=== PATIENT | female | born 1960 | race American Indian/Alaskan Native ===

== ENCOUNTER 2017-04-14 21:59 | Inpatient (IN) | payer MEDICARE ==
--- NOTE | 2017-04-14 23:42 | Emergency Department Report ---
HPI - General Chief Complaint: Weakness Time Seen by Provider: 04/14/17 23:26 - HPI HPI: Room 8 The patient is a 56-year-old female presenting with a chief complaint of syncope. The patient reports multiple syncopal episodes over the past 2 weeks. The patient states she stands up and gets lightheaded and then passes out waking up on the floor. Patient states this is happened 3-4 times. Patient denies any preceding chest pain or shortness of breath. Patient admits to intermittent headache and states she currently has a headache. The patient originally admitted to falling multiple times for the past 2 weeks secondary to her chronic back pain Location: [see above] Duration: Intermittent 2 weeks Quality: Lightheadedness Severity: [see above] Modifying factors: [see above] Context: [see above] Mode of transportation: [not driving] ED Past Medical Hx - Past Medical History Hx Hypertension: Yes Hx Diabetes: Yes Hx Arthritis: Yes Additional medical history: HIGH CHOLESTEROL - Surgical History Hx Coronary Stent: Yes Additional Surgical History: L neck sgx cyst. - Family History Family history: no significant - Social History Smoking Status: Current Every Day Smoker Substance Use Type: None (denies illicit drug use), Alcohol (occasional) - Medications Home Medications: Home Medications Medication Instructions Recorded Confirmed Last Taken Type Amitriptyline [Elavil] 25 mg PO DAILY 07/26/14 07/18/16 07/25/14 History 100mg Gabapentin 100 mg PO TID 07/26/14 07/18/16 07/25/14 History 100mg Insulin Aspart Prot/Aspart(Nf) 10 units SC BID 07/26/14 07/18/16 07/25/14 History [NovoLOG Mix 70/30 VIAL] 10 units Insulin Glargine [Lantus VIAL] 10 units SC QHS 07/26/14 07/18/16 07/25/14 History 15units Aspirin [Aspirin BABY CHEW TAB] 81 mg PO QDAY #30 tab.chew 07/20/16 Unknown Rx Carvedilol [Coreg] 3.125 mg PO BID #60 tablet 07/20/16 Unknown Rx HYDROcodone/APAP 5-325 [Canjilon 2 each PO Q6HR PRN #10 tablet 07/20/16 Unknown Rx 5-325 mg TAB] Lisinopril [Zestril TAB] 2.5 mg PO DAILY #30 tablet 07/20/16 Unknown Rx Omeprazole 40 mg PO DAILY #30 capsule. 07/20/16 Unknown Rx Potassium Chloride [K-Dur] 20 meq PO QDAY #30 tablet 07/20/16 Unknown Rx Prasugrel [Effient] 10 mg PO QDAY #30 tablet 07/20/16 Unknown Rx Pravastatin Sodium [Pravastatin] 20 mg PO DAILY #30 tablet 07/20/16 Unknown Rx Tizanidine HCl [tiZANidine] 2 mg PO Q8HR #8 tablet 07/20/16 Unknown Rx oxyCODONE ER [OxyCONTIN ER TAB] 10 mg PO Q12HR #10 tablet 07/20/16 Unknown Rx ED Review of Systems ROS: Stated complaint: GENERAL WEAKNESS Other details as noted in HPI Comment: All other systems reviewed and negative Constitutional: denies: chills, fever Eyes: denies: eye pain, eye discharge, vision change ENT: denies: ear pain, throat pain Respiratory: denies: cough, shortness of breath, wheezing Cardiovascular: denies: chest pain, palpitations Endocrine: no symptoms reported Gastrointestinal: denies: abdominal pain, nausea, diarrhea Genitourinary: denies: urgency, dysuria, discharge Musculoskeletal: back pain Skin: denies: rash, lesions Neurological: headache, other (syncope) Psychiatric: denies: anxiety, depression Hematological/Lymphatic: denies: easy bleeding, easy bruising Physical Exam - Physical Exam Vital Signs: Vital Signs 04/14/17 04/14/17 22:44 22:53 Temperature 98.4 F Pulse Rate 86 Respiratory 16 16 Rate Blood Pressure 130/84 Blood Pressure 130/84 [Right] O2 Sat by Pulse 98 Oximetry Physical Exam: GENERAL: The patient is well-developed well-nourished female lying on stretcher not appearing to be in acute distress. [] HEENT: Normocephalic. Atraumatic. Extraocular motions are intact. Patient has moist mucous membranes. NECK: Supple. Trachea midline CHEST/LUNGS: Clear to auscultation. There is no respiratory distress noted. HEART/CARDIOVASCULAR: Regular. There is no tachycardia. There is no gallop rub or murmur. ABDOMEN: Abdomen is soft, nontender. Patient has normal bowel sounds. There is no abdominal distention. SKIN: There are subacute abrasions to bilateral knees from previous falls. There is no diaphoresis. NEURO: The patient is awake, alert, and oriented. The patient is cooperative. The patient has no focal neurologic deficits. The patient has normal speech. Cranial nerves II through XII grossly intact, no drift. Liquid Sugar Melter 5+/5 bilaterally MUSCULOSKELETAL: There is no limitation range of motion. ED Course Vital Signs 04/14/17 04/14/17 22:44 22:53 Temperature 98.4 F Pulse Rate 86 Respiratory 16 16 Rate Blood Pressure 130/84 Blood Pressure 130/84 [Right] O2 Sat by Pulse 98 Oximetry ED Medical Decision Making - Lab Data Result diagrams: 04/14/17 23:35 04/14/17 23:35 Laboratory Tests 04/14/17 04/14/17 04/14/17 23:35 23:35 23:35 WBC 6.8 RBC 2.61 L Hgb 8.7 L Hct 27.0 L MCV 103 H MCH 34 H MCHC 32 RDW 15.8 H Plt Count 167 Lymph % (Auto) Hose Handler Add Manual Diff Complete Total Counted 100 Seg Neutrophils % Hose Handler Seg Neuts % (Manual) 78.0 H Band Neutrophils % 1.0 Lymphocytes % (Manual) 16.0 Reactive Lymphs % (Man) 0 Monocytes % (Manual) 4.0 Eosinophils % (Manual) 1.0 Basophils % (Manual) 0 Metamyelocytes % 0 Myelocytes % 0 Promyelocytes % 0 Blast Cells % 0 Nucleated RBC % Not Reportable Seg Neutrophils # Man 5.3 Band Neutrophils # 0.1 Lymphocytes # (Manual) 1.1 L Abs React Lymphs (Man) 0.0 Monocytes # (Manual) 0.3 Eosinophils # (Manual) 0.1 Basophils # (Manual) 0.0 Metamyelocytes # 0.0 Myelocytes # 0.0 Promyelocytes # 0.0 Blast Cells # 0.0 WBC Morphology Not Reportable Hypersegmented Neuts Not Reportable Hyposegmented Neuts Not Reportable Hypogranular Neuts Not Reportable Smudge Cells Not Reportable Toxic Granulation Not Reportable Toxic Vacuolation Not Reportable Dohle Bodies Not Reportable Pelger-Huet Anomaly Not Reportable Kim Rods Not Reportable Platelet Estimate Consistent w auto Clumped Platelets Not Reportable Plt Clumps, EDTA Not Reportable Large Platelets Not Reportable Giant Platelets Not Reportable Platelet Satelliting Not Reportable Plt Morphology Comment Not Reportable RBC Morphology Not Reportable Dimorphic RBCs Not Reportable Polychromasia Not Reportable Hypochromasia Not Reportable Poikilocytosis Not Reportable Anisocytosis Not Reportable Microcytosis Not Reportable Macrocytosis Not Reportable Spherocytes Not Reportable Pappenheimer Bodies Not Reportable Sickle Cells Not Reportable Target Cells 1+ Tear Drop Cells Not Reportable Ovalocytes Not Reportable Stomatocytes Few Helmet Cells Not Reportable [place] Bodies Not Reportable [place] Rings Not Reportable Lucas Cells Not Reportable Bite Cells Not Reportable Crenated Cell Not Reportable Elliptocytes Not Reportable Acanthocytes (Spur) Not Reportable Rouleaux Not Reportable Hemoglobin C Crystals Not Reportable Schistocytes Not Reportable Malaria parasites Not Reportable Vladislav Bodies Not Reportable Hem Pathologist Commnt No PT 16.1 H INR 1.30 H APTT 37.3 H VBG pH Sodium 127 L Potassium 3.0 L Chloride 87.5 L Carbon Dioxide 20 L Anion Gap 23 BUN 6 L Creatinine 0.3 L Estimated GFR > 60 BUN/Creatinine Ratio 20.00 Glucose 187 H Calcium 6.2 L Total Bilirubin 10.70 H AST 194 H ALT 59 H Alkaline Phosphatase 413 H Total Creatine Kinase 57 CK-MB (CK-2) 1.1 CK-MB (CK-2) Rel Index 1.9 Troponin T < 0.010 Total Protein 6.2 L Albumin 2.2 L Albumin/Globulin Ratio 0.6 TSH Free T4 04/14/17 04/14/17 23:35 23:35 WBC RBC Hgb Hct MCV MCH MCHC RDW Plt Count Lymph % (Auto) Add Manual Diff Total Counted Seg Neutrophils % Seg Neuts % (Manual) Band Neutrophils % Lymphocytes % (Manual) Reactive Lymphs % (Man) Monocytes % (Manual) Eosinophils % (Manual) Basophils % (Manual) Metamyelocytes % Myelocytes % Promyelocytes % Blast Cells % Nucleated RBC % Seg Neutrophils # Man Band Neutrophils # Lymphocytes # (Manual) Abs React Lymphs (Man) Monocytes # (Manual) Eosinophils # (Manual) Basophils # (Manual) Metamyelocytes # Myelocytes # Promyelocytes # Blast Cells # WBC Morphology Hypersegmented Neuts Hyposegmented Neuts Hypogranular Neuts Smudge Cells Toxic Granulation Toxic Vacuolation Dohle Bodies Pelger-Huet Anomaly Kim Rods Platelet Estimate Clumped Platelets Plt Clumps, EDTA Large Platelets Giant Platelets Platelet Satelliting Plt Morphology Comment RBC Morphology Dimorphic RBCs Polychromasia Hypochromasia Poikilocytosis Anisocytosis Microcytosis Macrocytosis Spherocytes Pappenheimer Bodies Sickle Cells Target Cells Tear Drop Cells Ovalocytes Stomatocytes Helmet Cells [place] Bodies [place] Rings Lucas Cells Bite Cells Crenated Cell Elliptocytes Acanthocytes (Spur) Rouleaux Hemoglobin C Crystals Schistocytes Malaria parasites Vladislav Bodies Hem Pathologist Commnt PT INR APTT VBG pH 7.423 H Sodium Potassium Chloride Carbon Dioxide Anion Gap BUN Creatinine Estimated GFR BUN/Creatinine Ratio Glucose Calcium Total Bilirubin AST ALT Alkaline Phosphatase Total Creatine Kinase CK-MB (CK-2) CK-MB (CK-2) Rel Index Troponin T Total Protein Albumin Albumin/Globulin Ratio TSH 1.660 Free T4 0.86 - EKG Data -: EKG Interpreted by Me EKG shows normal: sinus rhythm Rate: normal - EKG Data When compared to previous EKG there are: no significant change Interpretation: unchanged when compared t (07/18/2016) - Radiology Data Radiology results: report reviewed (CT head, CT cervical spine, right upper quadrant ultrasound), image reviewed (CT head, CT cervical spine, right upper quadrant ultrasound) CT head (read by radiologist)-no grossly acute intracranial abnormality. I'll volume loss and chronic small vessel ischemic disease CT cervical spine (read by radiologist)-no acute fracture or subluxation of the cervical spine. Stable mild to moderate degenerative changes of the cervical spine and ossification of the posterior longitudinal ligament. Right upper quadrant ultrasound (read by radiologist)-cholelithiasis without secondary signs of acute inflammation or biliary dilatation. Diffuse fatty infiltration of the liver - Differential Diagnosis syncope, ICH, DKA, ACS, rhabdomyolysis, dehydration, orthostasis Critical care attestation.: If time is entered above; I have spent that time in minutes in the direct care of this critically ill patient, excluding procedure time. ED Disposition Clinical Impression: Syncope, Elevated LFTs, Hyperbilirubinemia, Cholelithiasis Disposition: OP ADMIT IP TO THIS HOSP Is pt being admited?: Yes Does the pt Need Aspirin: Yes Condition: Fair Instructions: Syncope (ED) Referrals: PRIMARY CARE, [Primary Care Provider] - 3-5 Days Time of Disposition: 02:32 (hospitalist paged)
[2017-04-15 00:07] LABS: INR 1.3 (0.87-1.13)
[2017-04-15 00:08] LABS: Partial Thromboplastin Time 37.3 Sec. (24.2-36.6)
[2017-04-15 00:16] LABS: Creatine Kinase MB 1.1 ng/mL (0.0-4.0)
[2017-04-15] MEDS ORDERED: ULTRAM PO ONE (00:16)
[2017-04-15 00:19] LABS: Alanine Aminotransferase 59 units/L (7-56); Albumin 2.2 g/dL (3.9-5); Albumin/Globulin Ratio 0.6 %; Alkaline Phosphatase 413 units/L (35-129); Anion Gap 23 mmol/L; Blood Urea Nitrogen 6 mg/dL (7-17); Calcium 6.2 mg/dL (8.4-10.2); Carbon Dioxide 20 mmol/L (22-30); Chloride 87.5 mmol/L (98-107); Creatine Kinase 57 units/L (30-135); Glucose 187 mg/dL (65-100); Sodium 127 mmol/L (137-145); Total Protein 6.2 g/dL (6.3-8.2)
[2017-04-15 00:23] LABS: Hemoglobin 8.7 gm/dl (10.1-14.3); Mean Corpuscular HGB Conc 32 % (30-34); Mean Corpuscular Hemoglobin 34 pg (28-32); Mean Corpuscular Volume 103 fl (79-97); Platelet Count 167 K/mm3 (140-440); Red Blood Count 2.61 M/mm3 (3.65-5.03); Red Cell Distribution Width 15.8 % (13.2-15.2); White Blood Count 6.8 K/mm3 (4.5-11.0)
--- NOTE | 2017-04-15 00:30 | Cat Scan Report ---
FINAL REPORT EXAM: CT HEAD/BRAIN WO CON HISTORY: headache, syncope COMPARISON: June 2016. TECHNIQUE: Axial images obtained skull base through vertex. FINDINGS: No acute intracranial hemorrhage, midline shift or pathologic extra axial fluid collection. Mild volume loss with compensatory dilatation of the ventricular system and chronic small vessel ischemic disease. Otherwise, matamoros-white differentiation preserved. Calvarium grossly intact. Mild mucosal thickening of the visualized paranasal sinuses. Small benign osteoma left frontal sinus. Mastoid air cells are clear. Orbits are grossly unremarkable. IMPRESSION: No grossly acute intracranial abnormality. Mild volume loss and chronic small vessel ischemic disease.
--- NOTE | 2017-04-15 00:34 | Cat Scan Report ---
FINAL REPORT EXAM: CT CERVICAL SPINE WO CON HISTORY: neck pain after syncope COMPARISON: June 2016. TECHNIQUE: Axial images obtained through the cervical spine. Additional sagittal and coronal reformatted images were obtained. FINDINGS: Normal lordotic curvature of the cervical spine. Cervical vertebral body heights are preserved. No acute fracture or traumatic subluxation. Odontoid process, articular pillars and occipital condyles are intact. Mild to moderate loss of disc height throughout the cervical spine with flowing anterior endplate osteophyte. There is mild ossification of posterior longitudinal ligament at several levels. There is also partial calcification of posterior ligamentous structures at several levels. Combination of findings causes mild to moderate canal stenosis and foraminal narrowing at several levels. Mild to moderate calcified plaque at the carotid bifurcations. Stable calcification along the posterior arch of the odontoid process related to ligamentous hypertrophy. IMPRESSION: No acute fracture or subluxation of the cervical spine. Stable mild to moderate degenerative changes of the cervical spine and ossification of posterior longitudinal ligament.
--- NOTE | 2017-04-15 01:52 | Ultrasound Report ---
FINAL REPORT EXAM: US ABDOMEN LIMITED HISTORY: elevated LFTs, syncope COMPARISON: None available. TECHNIQUE: Several real-time grayscale and color Doppler images were obtained. FINDINGS: There is increased echogenicity of the liver compatible with fatty infiltration. Visualized aorta is normal in caliber. Right kidney measures 11.7 centimeters in length. No hydronephrosis. Echogenic structure within the gallbladder most compatible cholelithiasis. No biliary dilatation. The common bile duct measures 2 millimeters. Gallbladder wall thickness 2 millimeters within normal limits. Bowel gas obscures the pancreas. IMPRESSION: Cholelithiasis without secondary signs of acute inflammation or biliary dilatation. Diffuse fatty infiltration of the liver.
[2017-04-15 01:58] LABS: Basophils % (Manual) 0 % (0.0-1.8); Blastocytes % (Manual) 0 %
[2017-04-15 01:59] LABS: Platelet Estimate Consistent w Auto; Stomatocytes Few; Target Cells 1+
[2017-04-15 02:00] LABS: Diff Status Complete
[2017-04-15 03:40] LABS: INR 1.33 (0.87-1.13)
[2017-04-15 03:41] LABS: Partial Thromboplastin Time 38.8 Sec. (24.2-36.6)
[2017-04-15 05:19] LABS: Bacteria,Urine 1+ /HPF (Negative); Bilirubin,Urine SM (Negative); Blood,Urine NEG (Negative); Ketones,Urine NEG (Negative); Leukocyte Esterase,Urine NEG (Negative); Nitrite,Urine NEG (Negative); Protein,Urine <15 mg/dL mg/dL (Negative)
[2017-04-15] MEDS ORDERED: DULCOLAX PR PRN (05:46)
[2017-04-15] MEDS ORDERED: MILK OF MAGNESIA PO PRN (05:46)
[2017-04-15] MEDS ORDERED: ZOFRAN IV PRN (05:46)
--- NOTE | 2017-04-15 05:57 | History and Physical Report ---
History of Present Illness Date of examination: 04/15/17 History of present illness: 69-year-old woman with history of hypertension, coronary artery disease, diabetes, hyperlipidemia, GERD, depression comes emergency room with complaint of feeling dizzy when she stands up, also complaining of falls. This is been ongoing over the last 2 weeks. Patient states that she was taken off all antihypertensive 2-3 months ago because her blood pressure was too low. Her blood pressure is in the 80s at home systolically. Patient is on chronic narcotics for osteoarthritis of the spine Review Of Systems: Constitutional: no weight loss Ears, eyes, nose, mouth and throat: no nasal congestion, no nasal discharge, no sinus pressure, blurry vision, diplopia Neck: No neck pain or rigidity. Cardiovascular: no chest pain, orthopnea, palpitations Respiratory: No shortness of breath, cough Gastrointestinal: abdominal pain, hematochezia Genitourinary : no dysuria, frequency , hematuria Musculoskeletal: no muscle ache Integumentary: no rash, no pruritis Neurological: no parathesias, focal weakness Endocrine: no cold or heat intolerance, no polyuria or polydipsia Hematologic/Lymphatic: no easy bruising, no easy bleeding, no gland swelling Allergic/Immunologic: no urticaria, no angioedema. PAST MEDICAL HISTORY:hypertension, coronary artery disease, diabetes, hyperlipidemia, GERD, depression PAST SURGICAL HISTORY: Cyst removed from neck FAILY HISTORY: Hypertension SOCIAL HISTORY: Smokes half pack a day, social alcohol, no drug Medications and Allergies Allergies Allergy/AdvReac Type Severity Reaction Status Date / Time No Known Allergies Allergy Verified 03/09/15 11:46 Home Medications Medication Instructions Recorded Confirmed Last Taken Type Insulin Regular, Human [HumuLIN R] 0 units SUB-Q AC #1 vial 04/20/17 Unknown Rx Multivitamin Tab W-MINERAL 1 each PO QDAY #7 tablet 04/20/17 Unknown Rx [Multiple Vitamin/Mineral (Theragran M)] Pantoprazole [Protonix TAB] 40 mg PO DAILY #30 tablet 04/20/17 Unknown Rx Potassium Chloride [K-Dur] 20 meq PO QDAY #14 tablet 04/20/17 Unknown Rx diphenhydrAMINE [Benadryl CAP] 25 mg PO Q6H PRN #7 capsule 04/20/17 Unknown Rx traMADol [Ultram 50 MG tab] 50 mg PO Q4HR PRN #7 tablet 04/20/17 Unknown Rx Active Meds: Active Medications Acetaminophen (Tylenol) 650 mg PO Q4H PRN PRN Reason: Pain MILD(1-3)/Fever >100.5/LUCERO Bisacodyl (Dulcolax) 10 mg NE QDAY PRN PRN Reason: Constipation unrelieved by MOM Enoxaparin Sodium (Lovenox) 30 mg SUB-Q QDAY MALU Magnesium Hydroxide (Milk Of Magnesia) 30 ml PO Q4H PRN PRN Reason: Constipation Ondansetron HCl (Zofran) 4 mg IV Q8H PRN PRN Reason: N/V unrelieved by Reglan Exam - Physical Exam Narrative exam: Gen. appearance: Patient lying in bed in no acute distress HEENT: Normocephalic/atraumatic, pupils equal round reactive to light, extra alkaline movement intact, no scleral icterus, no JVD or thyromegaly or nodule, neck is supple, mucous membrane moist, no erythema or exudate Heart: S1-S2, regular rate and rhythm Lungs: Clear to auscultation bilateral breathing comfortable Abdomen: Positive bowel sounds, nontender, nondistended, no organomegaly Extremities: No edema, cyanosis, clubbing Neuro:: Oriented 3 , cranial nerves II-12 intact, speech, motor intact Skin: No rash, nodules, warm dry - Constitutional Vitals: Temp Pulse Resp BP Pulse Ox 98.4 F 73 16 102/55 98 04/14/17 22:44 04/15/17 04:00 04/15/17 04:00 04/15/17 04:00 04/15/17 02:00 Results - Labs CBC & Chem 7: 04/20/17 06:27 04/20/17 06:27 Labs: Abnormal lab results 04/14/17 04/14/17 04/14/17 Range/Units 23:35 23:35 23:35 RBC 2.61 L (3.65-5.03) M/mm3 Hgb 8.7 L (10.1-14.3) gm/dl Hct 27.0 L (30.3-42.9) % MCV 103 H (79-97) fl MCH 34 H (28-32) pg RDW 15.8 H (13.2-15.2) % Seg Neuts % (Manual) 78.0 H (40.0-70.0) % Lymphocytes # (Manual) 1.1 L (1.2-5.4) K/mm3 PT 16.1 H (12.2-14.9) Sec. INR 1.30 H (0.87-1.13) APTT 37.3 H (24.2-36.6) Sec. VBG pH (7.320-7.420) Sodium 127 L (137-145) mmol/L Potassium 3.0 L (3.6-5.0) mmol/L Chloride 87.5 L (98-107) mmol/L Carbon Dioxide 20 L (22-30) mmol/L BUN 6 L (7-17) mg/dL Creatinine 0.3 L (0.7-1.2) mg/dL Glucose 187 H (65-100) mg/dL Calcium 6.2 L (8.4-10.2) mg/dL Total Bilirubin 10.70 H (0.1-1.2) mg/dL AST 194 H (5-40) units/L ALT 59 H (7-56) units/L Alkaline Phosphatase 413 H (35-129) units/L Total Protein 6.2 L (6.3-8.2) g/dL Albumin 2.2 L (3.9-5) g/dL 04/14/17 04/15/17 Range/Units 23:35 03:03 RBC (3.65-5.03) M/mm3 Hgb (10.1-14.3) gm/dl Hct (30.3-42.9) % MCV (79-97) fl MCH (28-32) pg RDW (13.2-15.2) % Seg Neuts % (Manual) (40.0-70.0) % Lymphocytes # (Manual) (1.2-5.4) K/mm3 PT 16.4 H (12.2-14.9) Sec. INR 1.33 H (0.87-1.13) APTT 38.8 H (24.2-36.6) Sec. VBG pH 7.423 H (7.320-7.420) Sodium (137-145) mmol/L Potassium (3.6-5.0) mmol/L Chloride (98-107) mmol/L Carbon Dioxide (22-30) mmol/L BUN (7-17) mg/dL Creatinine (0.7-1.2) mg/dL Glucose (65-100) mg/dL Calcium (8.4-10.2) mg/dL Total Bilirubin (0.1-1.2) mg/dL AST (5-40) units/L ALT (7-56) units/L Alkaline Phosphatase (35-129) units/L Total Protein (6.3-8.2) g/dL Albumin (3.9-5) g/dL - Imaging and Cardiology CT Scan - head: report reviewed US - abdomen: report reviewed Assessment and Plan Assessment Hypotension, unclear etiology Abnormal LFTs Coronary artery disease Hypertension Diabetes Hyperlipidemia Depression Plan Admit to medicine Consult cardiology, GI, check cardiac enzymes, orthostatic Check fingersticks and initiate insulin sliding scale Continue appropriate outpatient medications
[2017-04-15 06:33] LABS: Creatine Kinase 49 units/L (30-135); Creatine Kinase MB < 1.0 ng/mL (0.0-4.0)
--- NOTE | 2017-04-15 10:43 | Progress Note ---
Assessment and Plan Assessment and plan: 69-year-old male past medical history of hypertension, coronary artery disease, diabetes, hyperlipidemia, GERD, major depression. Presents to the hospital with dizziness upon standing. Complaining of multiple fall over a period of 2 weeks. She is markedly jaundiced, complaining of itching. Her labs showed transaminitis, elevated alkaline phosphatase and elevated bilirubin CT of the C-spine, image reviewed, no acute findings CTH, image reviewed, no acute findings US- abdomen, image reviewed, no acute findings Dizziness and giddiness * She is on multiple sedating medications. Including OxyContin, amitriptyline, gabapentin and tizanidine, we'll try to minimize these medications for now * Obtain orthostatic blood pressure and echocardiogram, check cxr Hyponatremia/dehydration/hypokalemia * IV fluids with NS and KCl Hypertension * We'll hold blood pressure medications in the meantime, check orthostatic vital signs Hyperbilirubinemia * US abdomen shows cholethiasis without obstruction or inflammation * Check direct bilirubin, check CT abdomen and pelvis, GI consult appreciated * need to exclude malignancy Diabetes * Continue long-acting insulin along with sliding scale Hypokalemia * Continue potassium supplements Hypomagnesemia * replete IV History of CAD * Continue beta bridger, aspirin and Prasugrel Debility/Frequent falls PT consult, may need rehab placement DVT prophylaxis with [place] Hospitalist Physical - Constitutional Vitals: Temp Pulse Resp BP Pulse Ox 98.5 F 75 18 120/63 98 04/15/17 07:53 04/15/17 07:53 04/15/17 07:53 04/15/17 07:53 04/15/17 09:47 Results - Labs CBC & Chem 7: 04/14/17 23:35 04/14/17 23:35 Labs: Laboratory Last Values WBC 6.8 K/mm3 (4.5-11.0) 04/14/17 23:35 RBC 2.61 M/mm3 (3.65-5.03) L 04/14/17 23:35 Hgb 8.7 gm/dl (10.1-14.3) L 04/14/17 23:35 Hct 27.0 % (30.3-42.9) L 04/14/17 23:35 MCV 103 fl (79-97) H 04/14/17 23:35 MCH 34 pg (28-32) H 04/14/17 23:35 MCHC 32 % (30-34) 04/14/17 23:35 RDW 15.8 % (13.2-15.2) H 04/14/17 23:35 Plt Count 167 K/mm3 (140-440) 04/14/17 23:35 Lymph % (Auto) [employer] 04/14/17 23:35 Add Manual Diff Complete 04/14/17 23:35 Total Counted 100 04/14/17 23:35 Seg Neutrophils % [employer] 04/14/17 23:35 Seg Neuts % (Manual) 78.0 % (40.0-70.0) H 04/14/17 23:35 Band Neutrophils % 1.0 % 04/14/17 23:35 Lymphocytes % (Manual) 16.0 % (13.4-35.0) 04/14/17 23:35 Reactive Lymphs % (Man) 0 % 04/14/17 23:35 Monocytes % (Manual) 4.0 % (0.0-7.3) 04/14/17 23:35 Eosinophils % (Manual) 1.0 % (0.0-4.3) 04/14/17 23:35 Basophils % (Manual) 0 % (0.0-1.8) 04/14/17 23:35 Metamyelocytes % 0 % 04/14/17 23:35 Myelocytes % 0 % 04/14/17 23:35 Promyelocytes % 0 % 04/14/17 23:35 Blast Cells % 0 % 04/14/17 23:35 Nucleated RBC % Not Reportable 04/14/17 23:35 Seg Neutrophils # Man 5.3 K/mm3 (1.8-7.7) 04/14/17 23:35 Band Neutrophils # 0.1 K/mm3 04/14/17 23:35 Lymphocytes # (Manual) 1.1 K/mm3 (1.2-5.4) L 04/14/17 23:35 Abs React Lymphs (Man) 0.0 K/mm3 04/14/17 23:35 Monocytes # (Manual) 0.3 K/mm3 (0.0-0.8) 04/14/17 23:35 Eosinophils # (Manual) 0.1 K/mm3 (0.0-0.4) 04/14/17 23:35 Basophils # (Manual) 0.0 K/mm3 (0.0-0.1) 04/14/17 23:35 Metamyelocytes # 0.0 K/mm3 04/14/17 23:35 Myelocytes # 0.0 K/mm3 04/14/17 23:35 Promyelocytes # 0.0 K/mm3 04/14/17 23:35 Blast Cells # 0.0 K/mm3 04/14/17 23:35 WBC Morphology Not Reportable 04/14/17 23:35 Hypersegmented Neuts Not Reportable 04/14/17 23:35 Hyposegmented Neuts Not Reportable 04/14/17 23:35 Hypogranular Neuts Not Reportable 04/14/17 23:35 Smudge Cells Not Reportable 04/14/17 23:35 Toxic Granulation Not Reportable 04/14/17 23:35 Toxic Vacuolation Not Reportable 04/14/17 23:35 Dohle Bodies Not Reportable 04/14/17 23:35 Pelger-Huet Anomaly Not Reportable 04/14/17 23:35 Kim Rods Not Reportable 04/14/17 23:35 Platelet Estimate Consistent w auto 04/14/17 23:35 Clumped Platelets Not Reportable 04/14/17 23:35 Plt Clumps, EDTA Not Reportable 04/14/17 23:35 Large Platelets Not Reportable 04/14/17 23:35 Giant Platelets Not Reportable 04/14/17 23:35 Platelet Satelliting Not Reportable 04/14/17 23:35 Plt Morphology Comment Not Reportable 04/14/17 23:35 RBC Morphology Not Reportable 04/14/17 23:35 Dimorphic RBCs Not Reportable 04/14/17 23:35 Polychromasia Not Reportable 04/14/17 23:35 Hypochromasia Not Reportable 04/14/17 23:35 Poikilocytosis Not Reportable 04/14/17 23:35 Anisocytosis Not Reportable 04/14/17 23:35 Microcytosis Not Reportable 04/14/17 23:35 Macrocytosis Not Reportable 04/14/17 23:35 Spherocytes Not Reportable 04/14/17 23:35 Pappenheimer Bodies Not Reportable 04/14/17 23:35 Sickle Cells Not Reportable 04/14/17 23:35 Target Cells 1+ 04/14/17 23:35 Tear Drop Cells Not Reportable 04/14/17 23:35 Ovalocytes Not Reportable 04/14/17 23:35 Stomatocytes Few 04/14/17 23:35 Helmet Cells Not Reportable 04/14/17 23:35 [place] Bodies Not Reportable 04/14/17 23:35 [place] Rings Not Reportable 04/14/17 23:35 [place] Cells Not Reportable 04/14/17 23:35 Bite Cells Not Reportable 04/14/17 23:35 Crenated Cell Not Reportable 04/14/17 23:35 Elliptocytes Not Reportable 04/14/17 23:35 Acanthocytes (Spur) Not Reportable 04/14/17 23:35 Rouleaux Not Reportable 04/14/17 23:35 Hemoglobin C Crystals Not Reportable 04/14/17 23:35 Schistocytes Not Reportable 04/14/17 23:35 Malaria parasites Not Reportable 04/14/17 23:35 Vladislav Bodies Not Reportable 04/14/17 23:35 Hem Pathologist Commnt No 04/14/17 23:35 PT 16.4 Sec. (12.2-14.9) H 04/15/17 03:03 INR 1.33 (0.87-1.13) H 04/15/17 03:03 APTT 38.8 Sec. (24.2-36.6) H 04/15/17 03:03 D-Dimer 177.26 ng/mlDDU (0-234) 04/15/17 03:03 VBG pH 7.423 (7.320-7.420) H 04/14/17 23:35 Sodium 127 mmol/L (137-145) L 04/14/17 23:35 Potassium 3.0 mmol/L (3.6-5.0) L 04/14/17 23:35 Chloride 87.5 mmol/L (98-107) L 04/14/17 23:35 Carbon Dioxide 20 mmol/L (22-30) L 04/14/17 23:35 Anion Gap 23 mmol/L 04/14/17 23:35 BUN 6 mg/dL (7-17) L 04/14/17 23:35 Creatinine 0.3 mg/dL (0.7-1.2) L 04/14/17 23:35 Estimated GFR > 60 ml/min 04/14/17 23:35 BUN/Creatinine Ratio 20.00 % 04/14/17 23:35 Glucose 187 mg/dL (65-100) H 04/14/17 23:35 Calcium 6.2 mg/dL (8.4-10.2) L 04/14/17 23:35 Total Bilirubin 10.70 mg/dL (0.1-1.2) H 04/14/17 23:35 AST 194 units/L (5-40) H 04/14/17 23:35 ALT 59 units/L (7-56) H 04/14/17 23:35 Alkaline Phosphatase 413 units/L (35-129) H 04/14/17 23:35 Total Creatine Kinase 49 units/L (30-135) 04/15/17 05:59 CK-MB (CK-2) < 1.0 ng/mL (0.0-4.0) 04/15/17 05:59 CK-MB (CK-2) Rel Index 2.0 (0-4) 04/15/17 05:59 Troponin T < 0.010 ng/mL (0.00-0.029) 04/15/17 05:59 Total Protein 6.2 g/dL (6.3-8.2) L 04/14/17 23:35 Albumin 2.2 g/dL (3.9-5) L 04/14/17 23:35 Albumin/Globulin Ratio 0.6 % 04/14/17 23:35 TSH 1.660 mlU/mL (0.270-4.200) 04/14/17 23:35 Free T4 0.86 ng/dL (0.76-1.46) 04/14/17 23:35 Urine Color Kimberly (Yellow) 04/15/17 04:53 Urine Turbidity Clear (Clear) 04/15/17 04:53 Urine pH 6.0 (5.0-7.0) 04/15/17 04:53 Ur Specific [place] 1.003 (1.003-1.030) 04/15/17 04:53 Urine Protein <15 mg/dl mg/dL (Negative) 04/15/17 04:53 Urine Glucose (UA) Neg mg/dL (Negative) 04/15/17 04:53 Urine Ketones Neg mg/dL (Negative) 04/15/17 04:53 Urine Blood Neg (Negative) 04/15/17 04:53 Urine Nitrite Neg (Negative) 04/15/17 04:53 Urine Bilirubin Sm (Negative) 04/15/17 04:53 Urine Ictotest Positive (Negative) 04/15/17 04:53 Urine Urobilinogen 2.0 mg/dL (<2.0) 04/15/17 04:53 Ur Leukocyte Esterase Neg (Negative) 04/15/17 04:53 Urine WBC (Auto) 2.0 /HPF (0.0-6.0) 04/15/17 04:53 Urine RBC (Auto) 3.0 /HPF (0.0-6.0) 04/15/17 04:53 U Epithel Cells (Auto) 1.0 /HPF (0-13.0) 04/15/17 04:53 Urine Bacteria (Auto) 1+ /HPF (Negative) 04/15/17 04:53
[2017-04-15] MEDS ORDERED: NACL 0.9% 1000 ML 1,000 ML with KCL 20 MEQ IV SCH (11:00)
--- NOTE | 2017-04-15 11:59 | Consultation ---
History of Present Illness Consult date: 04/15/17 Requesting physician: CHERYL CAPONE Consult reason: hypotension History of present illness: The patient is a 55 year old female who is followed by Dr. Miranda in the office with a history of CAD s/p PCI of LAD (07/2014), hypertension, hyperlipidemia, diabetes, hypotension, tobacco use and chronic back pain. She presented with c/ o of low BPs, dizziness, pre-syncope and BLE weakness. She states that for the past several weeks, she has become progressively dizzy with positional changes. She has been consistently experiencing pre-syncope and BLE weakness when going from sitting to standing and has fallen down multiple times as a result. She denies any loss of consciousness. She checked her BPs at home yesterday and noted her SBP to be 87. She denies chest pain, palpitations, n/v or diaphoresis. She was last seen in our office in 11/2016 and her coreg and lisinopril were discontinued at that time d/t persistent hypotension and dizziness. Her symptoms did resolve for some time following discontinuation of these medications, but have now returned. Following admission, head CT and cervical spine CT revealed NAF; Radha negative for AMI x 3 sets; ECG with NSR and diffuse t-wave flattening; H/H 8.02/12. Pt denies any history of anemia or any signs or symptoms of bleeding. Lexiscan MPI stress test 02/2016 was normal without evidence of active ischemia or prior infarction, normal LV. Echo done 02/2016 showed mild LVH, EF 50-55%, pseudonormalization, mild TR, RVSP 30mmHg. Past History Past Medical History: arthritis, CAD, diabetes, hypertension, hyperlipidemia Past Surgical History: PTCA Medications and Allergies Allergies Allergy/AdvReac Type Severity Reaction Status Date / Time No Known Allergies Allergy Verified 03/09/15 11:46 Home Medications Medication Instructions Recorded Confirmed Last Taken Type Amitriptyline [Elavil] 25 mg PO DAILY 07/26/14 07/18/16 07/25/14 History 100mg Gabapentin 100 mg PO TID 07/26/14 07/18/16 07/25/14 History 100mg Insulin Aspart Prot/Aspart(Nf) 10 units SC BID 07/26/14 07/18/16 07/25/14 History [NovoLOG Mix 70/30 VIAL] 10 units Insulin Glargine [Lantus VIAL] 10 units SC QHS 07/26/14 07/18/16 07/25/14 History 15units Aspirin [Aspirin BABY CHEW TAB] 81 mg PO QDAY #30 tab.chew 07/20/16 Unknown Rx Carvedilol [Coreg] 3.125 mg PO BID #60 tablet 07/20/16 Unknown Rx HYDROcodone/APAP 5-325 [[place] 2 each PO Q6HR PRN #10 tablet 07/20/16 Unknown Rx 5-325 mg TAB] Lisinopril [Zestril TAB] 2.5 mg PO DAILY #30 tablet 07/20/16 Unknown Rx Omeprazole 40 mg PO DAILY #30 capsule.dr 07/20/16 Unknown Rx Potassium Chloride [K-Dur] 20 meq PO QDAY #30 tablet 07/20/16 Unknown Rx Prasugrel [Effient] 10 mg PO QDAY #30 tablet 07/20/16 Unknown Rx Pravastatin Sodium [Pravastatin] 20 mg PO DAILY #30 tablet 07/20/16 Unknown Rx Tizanidine HCl [tiZANidine] 2 mg PO Q8HR #8 tablet 07/20/16 Unknown Rx oxyCODONE ER [OxyCONTIN ER TAB] 10 mg PO Q12HR #10 tablet 07/20/16 Unknown Rx Active Meds: Active Medications Acetaminophen (Tylenol) 650 mg PO Q4H PRN PRN Reason: Pain MILD(1-3)/Fever >100.5/LUCERO Acetaminophen/Hydrocodone Bitart ([place] 5/325) 2 each PO Q6HR PRN PRN Reason: Pain Aspirin (Baby Aspirin) 81 mg PO QDAY [facility] Bisacodyl (Dulcolax) 10 mg [place] QDAY PRN PRN Reason: Constipation unrelieved by MOM Carvedilol (Coreg) 3.125 mg PO BID [facility] Enoxaparin Sodium (Lovenox) 40 mg SUB-Q QDAY [facility] Potassium Chloride/Sodium Chloride (Ns/Kcl 20meq) 20 meq in 1,000 mls @ 100 mls /hr IV DIRECT [facility]U Magnesium Hydroxide (Milk Of Magnesia) 30 ml PO Q4H PRN PRN Reason: Constipation Miscellaneous Medication (Insulin Glargine) 10 units SC QHS [facility] Miscellaneous Medication (Omeprazole [Omeprazole]) 40 mg PO DAILY [facility] Miscellaneous Medication (Pravastatin Sodium [Pravastatin]) 20 mg PO DAILY [facility] Ondansetron HCl (Zofran) 4 mg IV Q8H PRN PRN Reason: N/V unrelieved by Reglan Potassium Chloride (K-Dur) 40 meq PO ONCE ONE Stop: 04/15/17 12:01 Potassium Chloride (K-Dur) 20 meq PO QDAY [facility] Prasugrel (Effient) 10 mg PO QDAY [facility] Review of Systems Constitutional: no weight loss, no weight gain, no fever, no chills, no sweats Ears, nose, mouth and throat: no ear pain, no nose pain, no sinus pressure, no sinus pain Cardiovascular: lightheadedness, no chest pain, no orthopnea, no palpitations, no rapid/irregular heart beat, no edema, no syncope, no shortness of breath, no dyspnea on exertion Respiratory: no cough, no shortness of breath, no congestion, no wheezing, no pain on inspiration Gastrointestinal: no abdominal pain, no nausea, no vomiting, no diarrhea, no constipation, no change in bowel habits Genitourinary Female: no pelvic pain, no flank pain, no dysuria, no urinary frequency, no urgency Musculoskeletal: no neck stiffness, no neck pain, no shooting arm pain, no arm numbness/tingling, no shooting leg pain, no leg numbness/tingling, no redness of joints Integumentary: no rash, no pruritis, no redness, no sores, no wounds Neurological: weakness, no head injury, no paralysis, no parathesias, no numbness, no tingling, no seizures, no syncope Endocrine: no cold intolerance, no heat intolerance Hematologic/Lymphatic: no easy bruising, no easy bleeding, no lymphadenopathy Allergic/Immunologic: no urticaria, no wheezing Physical Examination Vital Signs Pulse Ox 100 04/14/17 22:29 General appearance: no acute distress HEENT: Positive: PERRL, Normocephaly, Mucus Membranes Moist Neck: Positive: neck supple, trachea midline Cardiac: Positive: Reg Rate and Rhythm, S1/S2 Lungs: Positive: clear to auscultation Neuro: Positive: Grossly Intact, Cranial Nerve 2-12 Intact Abdomen: Positive: Unremarkable, Soft, Active Bowel Sounds. Negative: Tender Skin: Positive: Clear. Negative: Rash, Wound Musculoskeletal: No Fluid Collection, No Pain, Normal Range of Motion Extremities: Absent: edema Results 04/14/17 23:35 04/14/17 23:35 Cardiac Enzymes 04/15/17 Range/Units 05:59 CK-MB (CK-2) < 1.0 (0.0-4.0) ng/mL - Imaging and Cardiology Echo: pending, report reviewed (02/2016 showed mild LVH, EF 50-55%, pseudonormalization, mild TR, RVSP 30mmHg) Cardiac cath: report reviewed (PCI of LAD (07/2014)) EKG: image reviewed EKG interpretations - Telemetry EKG Rhythm: Sinus Rhythm - EKG Sinus rhythms and dysrhythmias: sinus rhythm Assessment and Plan Assessment: Dizziness / Pre-syncope / BLE weakness - head CT with NAF; cervical spine CT with NAF; pt denies any loss of consciousness. Hypotension - Patient with h/o adverse reaction to carvedilol and lisinopril, autonomic neuropathy due to diabetes has been suspected in the past Symptomatic anemia - H/H 8.02/12 CAD, s/p PCI of LAD with JOVANNI (07/2014) Hypokalemia Hyponatremia Hypocalcemia Transaminitis / hyperbilirubinemia - abd U/S with cholelithiasis w/o secondary signs of acute inflammation or biliary dilatation, diffuse fatty infiltration of the liver; INR 1.3. Hypoalbuminemia H/o HTN HLP DM Chronic back pain / arthritis Plan: Obtain echo. Obtain orthostatics. Recommend anemia work-up per primary MD and/or GI. Hold anti-hypertensives. Will discontinue Effient as it has been greater than 1 year since PCI of LAD with JOVANNI. Continue ASA 81mg daily and statin. Obtain serum Mg. Replete electrolytes per primary. Repeat CMP in AM. No indication for repeat ischemic evaluation at this time. Await GI consultation. Assessment and plan reviewed with pt at bedside. The patient has been seen in conjunction with Dr. Schwartz who agrees with the assessment and plan of care.
[2017-04-15] MEDS ORDERED: COREG PO SCH (12:00)
[2017-04-15] MEDS ORDERED: NS/KCL 20MEQ 20 MEQ/1,000 ML BAG IV SCH (12:00)
[2017-04-15] MEDS ORDERED: K-DUR PO ONE (12:00)
--- NOTE | 2017-04-15 13:20 | XRay Report ---
Chest 2 views. Findings: The heart, lungs, and pulmonary vessels are within normal limits. Bony structures appear normal. Impression: Normal study.
[2017-04-15] MEDS: NORCO 5/325 PO PRN ×2 (13:30→21:22)
[2017-04-15] MEDS: PROTONIX PO SCH (13:49)
[2017-04-15] MEDS ORDERED: EFFIENT PO SCH (14:00)
[2017-04-15] MEDS: BABY ASPIRIN PO SCH (14:00)
[2017-04-15] MEDS: LOVENOX SUB-Q SCH (14:46)
--- NOTE | 2017-04-15 16:19 | Gastroenterology Consultation ---
History of Present Illness - Reason for Consult Consult date: 04/15/17 jaundice Requesting physician: CHARLOTTE STATON - History of Present Illness The patient is a 56 year old female with a 30 year history of IDDM now admitted for progressive weakness and falling episodes with no LOC. GI consultation was requested for jaundice with a t. bili of 10. She has no known liver disease and denies any history of hepatitis or prior jaundice. She denies any new medications or OTC medications. Patient reports having a few mixed drinks every other week and denies prior heavy consumption of ETOH. She has had no abdominal pain, but does have a history of significant back pain and a 50 pound weight loss over several months. her appetite is poor. She has noticed dark urine in the past week and attributed this to dehydration. She has had pruritis for a week or so as well. Past History Past Medical History: arthritis, CAD, diabetes, hypertension, hyperlipidemia Past Surgical History: PTCA Social history: denies: alcohol abuse, prescription drug abuse, IV drug use Medications and Allergies Allergies Allergy/AdvReac Type Severity Reaction Status Date / Time No Known Allergies Allergy Verified 03/09/15 11:46 Home Medications Medication Instructions Recorded Confirmed Last Taken Type Amitriptyline [Elavil] 25 mg PO DAILY 07/26/14 07/18/16 07/25/14 History 100mg Gabapentin 100 mg PO TID 07/26/14 07/18/16 07/25/14 History 100mg Insulin Aspart Prot/Aspart(Nf) 10 units SC BID 07/26/14 07/18/16 07/25/14 History [NovoLOG Mix 70/30 VIAL] 10 units Insulin Glargine [Lantus VIAL] 10 units SC QHS 07/26/14 07/18/16 07/25/14 History 15units Aspirin [Aspirin BABY CHEW TAB] 81 mg PO QDAY #30 tab.chew 07/20/16 Unknown Rx Carvedilol [Coreg] 3.125 mg PO BID #60 tablet 07/20/16 Unknown Rx HYDROcodone/APAP 5-325 [[place] 2 each PO Q6HR PRN #10 tablet 07/20/16 Unknown Rx 5-325 mg TAB] Lisinopril [Zestril TAB] 2.5 mg PO DAILY #30 tablet 07/20/16 Unknown Rx Omeprazole 40 mg PO DAILY #30 capsule. 07/20/16 Unknown Rx Potassium Chloride [K-Dur] 20 meq PO QDAY #30 tablet 07/20/16 Unknown Rx Prasugrel [Effient] 10 mg PO QDAY #30 tablet 07/20/16 Unknown Rx Pravastatin Sodium [Pravastatin] 20 mg PO DAILY #30 tablet 07/20/16 Unknown Rx Tizanidine HCl [tiZANidine] 2 mg PO Q8HR #8 tablet 07/20/16 Unknown Rx oxyCODONE ER [OxyCONTIN ER TAB] 10 mg PO Q12HR #10 tablet 07/20/16 Unknown Rx Active Meds: Active Medications Acetaminophen (Tylenol) 650 mg PO Q4H PRN PRN Reason: Pain MILD(1-3)/Fever >100.5/LUCERO Acetaminophen/Hydrocodone Bitart ([place] 5/325) 2 each PO Q6H PRN PRN Reason: Pain Aspirin (Baby Aspirin) 81 mg PO QDAY [facility] Bisacodyl (Dulcolax) 10 mg [place] QDAY PRN PRN Reason: Constipation unrelieved by MOM Enoxaparin Sodium (Lovenox) 40 mg SUB-Q QDAY [facility] Potassium Chloride/Sodium Chloride (Ns/Kcl 20meq) 20 meq in 1,000 mls @ 100 mls /hr IV DIRECT MALU Insulin Detemir (Levemir) 10 units SUB-Q QHS [facility] Magnesium Hydroxide (Milk Of Magnesia) 30 ml PO Q4H PRN PRN Reason: Constipation Ondansetron HCl (Zofran) 4 mg IV Q8H PRN PRN Reason: N/V unrelieved by Reglan Pantoprazole Sodium (Protonix) 40 mg PO DAILY [facility] Potassium Chloride (K-Dur) 20 meq PO QDAY [facility] Simvastatin (Zocor) 10 mg PO QHS [facility] Review of Systems - Review of Systems Constitutional: weight loss Eyes: no change in vision, no double vision, no pain Ears, Nose, Throat: no decreased hearing, no difficulty swallowing Breasts: deferred Cardiovascular: no chest pain, no shortness of breath Respiratory: no cough, no shortness of breath, no wheezing Gastrointestinal: no abdominal pain, no nausea, no vomiting, no constipation, no change in bowel habits, no coffee ground emesis, no BRBPR, no melena, no hematochezia, no heartburn Rectal: no pain Female Genitourinary: deferred Musculoskeletal: gait dysfunction, muscle weakness Integumentary: rash, pruritis, jaundice Neurological: weakness, gait dysfunction, no head injury Psychiatric: no anxiety, no memory loss Endocrine: no cold intolerance Hematologic/Lymphatic: no easy bruising, no easy bleeding Allergic/Immunologic: no wheezing, no angioedema Exam - Constitutional Vital Signs: Temp Pulse Resp BP Pulse Ox 98.5 F 73 20 116/61 100 04/15/17 15:13 04/15/17 15:13 04/15/17 15:13 04/15/17 15:13 04/15/17 15:13 General appearance: no acute distress, well-nourished - EENT Eyes: PERRL, scleral icterus ENT: hearing intact, clear oral mucosa, dentition normal - Neck Neck: supple, normal ROM, no masses or JVD - Respiratory Respiratory effort: normal Respiratory: bilateral: CTA - Breasts Breasts: deferred - Cardiovascular Rhythm: regular Heart Sounds: Present: S1 & S2. Absent: gallop, rub Extremities: pulses intact, No edema, normal color, Full ROM - Gastrointestinal General gastrointestinal: Present: soft, non-tender, non-distended, normal bowel sounds. Absent: hepatomegaly, splenomegaly, mass Rectal Exam: deferred - Genitourinary Female Genitourinary: deferred - Integumentary Integumentary: Present: jaundice, rash - Neurologic Neurological: alert and oriented x3, strength equal bilaterally - Psychiatric Psychiatric: appropriate mood/affect, intact judgment & insight, memory intact - Labs CBC & Chem 7: 04/14/17 23:35 04/14/17 23:35 Lab Results: Laboratory Results - last 24 hr 04/15/17 04/15/17 04/15/17 05:59 12:13 12:13 Magnesium 0.80 L* Total Creatine Kinase 49 CK-MB (CK-2) < 1.0 CK-MB (CK-2) Rel Index 2.0 Troponin T < 0.010 < 0.010 Assessment and Plan - Patient Problems (1) Cholelithiasis Current Visit: Yes Status: Acute Qualifiers: Cholelithiasis location: C Cholecystitis presence: C Cholangitis presence : C Cholecystitis acuity: C Cholangitis acuity: C Biliary obstruction: B Plan to address problem: Non dilated bile ducts and absence of abdominal pain suggest that these are asymptomatic at the present time. (2) Elevated LFTs Current Visit: Yes Status: Acute Plan to address problem: Jaundice with t. bilii over 10 and AST 194, ALT 2 X normal. Multiple possibilities are present. Malignancy has to be excluded given weight loss. ETOH liver disease cannot be completely excluded although she denies a significant ETOH history. RUBIO with cirrhosis is a consideration. Drug induced liver disease is possible, but less likely given a stable medical regimen. Statins would not be expected to cause this picture. Autoimmune liver disease is also in the differential, eg PBC. Abdomninal CT with contrast has been ordered. Autoimmune and hepatitis studies will be ordered if not done already. Serial LFTs. Thank you for asking us to see her in consultation. (3) Post PTCA Current Visit: No Status: Acute (4) Diabetes 1.5, managed as type 1 Current Visit: No Status: Chronic (5) Hyperlipemia Current Visit: No Status: Chronic Qualifiers: Hyperlipidemia type: H (6) Hypertension Current Visit: No Status: Chronic Qualifiers: Hypertension type: H
[2017-04-15] MEDS ORDERED: MAGNESIUM SULFATE 4GM/100ML 4 GM/100 ML BAG IV ONE (17:00)
[2017-04-15] MEDS ORDERED: BENADRYL PO PRN (17:26)
[2017-04-15] MEDS: ISOPTO TEARS 0.5% OU PRN (19:50)
[2017-04-15] MEDS: ZOCOR PO SCH (21:22)
[2017-04-15] MEDS ORDERED: NON-FORMULARY (Insulin Glargine 10 UNITS) SC SCH (22:00)
[2017-04-15] MEDS ORDERED: LEVEMIR SUB-Q SCH (22:00)
[2017-04-15] MEDS: NOVOLOG SUB-Q SCH (22:26)
[2017-04-16] MEDS ORDERED: D50W (25GM) Syringe IV ONE (05:33)
[2017-04-16] MEDS: NORCO 5/325 PO PRN ×2 (05:46→17:49)
[2017-04-16 06:08] LABS: Hematocrit 26.5 % (30.3-42.9); Hemoglobin 8.8 gm/dl (10.1-14.3); Mean Corpuscular HGB Conc 33 % (30-34); Mean Corpuscular Hemoglobin 34 pg (28-32); Mean Corpuscular Volume 103 fl (79-97); Platelet Count 206 K/mm3 (140-440); Red Blood Count 2.58 M/mm3 (3.65-5.03)
[2017-04-16 06:24] LABS: Alanine Aminotransferase 71 units/L (7-56); Albumin 2.1 g/dL (3.9-5); Albumin/Globulin Ratio 0.5 %; Alkaline Phosphatase 442 units/L (35-129); Anion Gap 17 mmol/L; BUN/Creatinine Ratio 16.66; Bilirubin,Direct 7.5 mg/dL (0-0.2); Blood Urea Nitrogen 5 mg/dL (7-17); Calcium 6.5 mg/dL (8.4-10.2); Carbon Dioxide 24 mmol/L (22-30); Chloride 90.6 mmol/L (98-107); Glucose 49 mg/dL (65-100); Sodium 129 mmol/L (137-145); Total Protein 6.1 g/dL (6.3-8.2)
[2017-04-16 06:36] LABS: Potassium 2.7 mmol/L (3.6-5.0)
[2017-04-16 07:16] LABS: Blastocytes % (Manual) 0 %
[2017-04-16 07:17] LABS: Basophils % (Manual) 0 % (0.0-1.8)
[2017-04-16 07:18] LABS: Diff Status Complete; Large Platelets Rare; Platelet Estimate Consistent w Auto; Stomatocytes 1+; Target Cells 1+; Toxic Granulation Rare
[2017-04-16] MEDS: NOVOLOG SUB-Q SCH ×3 (08:27→17:40)
[2017-04-16] MEDS: KCL 10MEQ/100ML 10 MEQ/100 ML BAG IV SCH ×3 (09:36→17:36)
[2017-04-16] MEDS: LOVENOX SUB-Q SCH (09:36)
[2017-04-16] MEDS: PROTONIX PO SCH (09:37)
[2017-04-16] MEDS: BABY ASPIRIN PO SCH (09:37)
[2017-04-16] MEDS ORDERED: NON-FORMULARY (Omeprazole [Omeprazole] 40 MG) PO SCH (10:00)
[2017-04-16] MEDS ORDERED: NON-FORMULARY (Pravastatin Sodium [Pravastatin] 20 MG) PO SCH (10:00)
[2017-04-16] MEDS ORDERED: K-DUR PO SCH (10:00)
[2017-04-16] MEDS ORDERED: NACL ONE (10:32)
[2017-04-16] MEDS ORDERED: K-DUR PO ONE ×2 (11:30→15:00)
--- NOTE | 2017-04-16 13:42 | Progress Note ---
Assessment and Plan Assessment: Dizziness / Pre-syncope / BLE weakness - head CT with NAF; cervical spine CT with NAF; pt denies any loss of consciousness. 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 Hypoalbuminemia / malnutrition / poor appetite H/o HTN HLP DM Tobacco use - cessation encouraged Chronic back pain / arthritis Plan: Echo reviewed - EF 55-60%, mild LVH, impaired relaxation, trace TR, trivial pericardial effusion. Obtain orthostatics now - d/w primary RN. Recommend anemia work-up per primary MD and/or GI. Cont to hold anti-hypertensives. Continue ASA 81mg daily and statin if okay per GI. Replete electrolytes PRN. Recommend maintaining serum K~4 and serum Mg ~2 from cardiac standpoint. GI consultation noted. Await abdomen CT. Assessment and plan reviewed with pt at bedside. The patient has been seen in conjunction with Dr. Schwartz who agrees with the assessment and plan of care. Subjective Date of service: 04/16/17 Principal diagnosis: dizziness; pre-syncope Interval history: Pt resting comfortably at bedside, underwent echo this AM. States she ambulated earlier with PT and noted her dizziness to be slightly improved. BPs borderline hypotensive overnight. Objective Last Vital Signs Temp 97.8 F 04/16/17 07:27 Pulse 79 04/16/17 07:27 Resp 18 04/16/17 07:27 BP 115/70 04/16/17 07:27 Pulse Ox 100 04/16/17 07:27 - Physical Examination General: Appears Well HEENT: Positive: PERRL, Normocephaly, Mucus Membranes Moist, Other (icteric sclera) Neck: Positive: neck supple, trachea midline Cardiac: Positive: Reg Rate and Rhythm, S1/S2 Lungs: Positive: clear to auscultation Neuro: Positive: Grossly Intact, Cranial Nerve 2-12 Intact Abdomen: Positive: Unremarkable, Soft, Active Bowel Sounds. Negative: Tender Skin: Positive: Clear. Negative: Rash, Wound Musculoskeletal: No Fluid Collection, No Pain, Normal Range of Motion Extremities: Absent: edema - Labs and Meds Cardiac Enzymes 04/16/17 Range/Units 05:28 AST 239 H (5-40) units/L CBC 04/16/17 Range/Units 05:28 WBC 6.0 (4.5-11.0) K/mm3 RBC 2.58 L (3.65-5.03) M/mm3 Hgb 8.8 L (10.1-14.3) gm/dl Hct 26.5 L (30.3-42.9) % Plt Count 206 (140-440) K/mm3 Comprehensive Metabolic Panel 04/16/17 Range/Units 05:28 Sodium 129 L (137-145) mmol/L Potassium 2.7 L* (3.6-5.0) mmol/L Chloride 90.6 L (98-107) mmol/L Carbon Dioxide 24 (22-30) mmol/L BUN 5 L (7-17) mg/dL Creatinine 0.3 L (0.7-1.2) mg/dL Glucose 49 L (65-100) mg/dL Calcium 6.5 L (8.4-10.2) mg/dL Direct Bilirubin 7.5 H (0-0.2) mg/dL Indirect Bilirubin 2.0 mg/dL AST 239 H (5-40) units/L ALT 71 H (7-56) units/L Alkaline Phosphatase 442 H (35-129) units/L Total Protein 6.1 L (6.3-8.2) g/dL Albumin 2.1 L (3.9-5) g/dL - Imaging and Cardiology EKG: image reviewed Echo: report reviewed (EF 55-60%, mild LVH, impaired relaxation, trace TR, trivial pericardial effusion. ) Cardiac cath: report reviewed (PCI of LAD (07/2014)) - Telemetry EKG Rhythm: Sinus Rhythm - EKG Sinus rhythms and dysrhythmias: sinus rhythm
--- NOTE | 2017-04-16 14:06 | Cat Scan Report ---
CT SCAN OF THE ABDOMEN AND PELVIS WITH CONTRAST: HISTORY: Jaundice. TECHNIQUE: Helical CT in 1.25mm intervals following IV contrast. Sagittal and coronal reconstructions. FINDINGS: Compared to the noncontrast CT abdomen and pelvis performed 07/17/11. The liver is enlarged with diffuse decreased attenuation which are new findings since 2010. This could represent severe fatty infiltration or liver edema. There is a 1.4 cm focus of enhancement in the lateral right hepatic lobe on image 69, series 2. This may represent a small hemangioma, although this lesion is incompletely evaluated on this exam. Consider MRI with contrast or four-phase liver CT if further evaluation is needed. The portal venous system and hepatic veins are patent. The gallbladder is contracted. No biliary dilatation or large calcified gallstones are appreciated. The pancreas is atrophic. No evidence for pancreatic mass or inflammation. The spleen is normal size and attenuation measuring 9 cm. No focal mass. The kidneys are normal in size and position with no evidence of hydronephrosis or mass. The adrenal glands are normal. There is no intestinal obstruction or ascites. Normal appendix. The abdominal aorta is normal. The uterus and adnexa are within normal limits. There is no evidence of peritoneal air or fluid. There is no evidence of any abnormal masses or fluid collections within the pelvis. No adenopathy is identified. The bladder is normal. IMPRESSION: Hepatomegaly and diffuse decreased attenuation of the liver parenchyma has developed since 2010. This could represent severe fatty infiltration or liver edema. Please correlate with the patient's clinical presentation. 1.4 cm focus of enhancement within the right hepatic lobe probably represents a small cavernous hemangioma. See above. No acute inflammatory process is appreciated.
--- NOTE | 2017-04-16 14:55 | Gastroenterology Progress Note ---
Assessment and Plan - Patient Problems (1) Hepatomegaly Current Visit: Yes Status: Acute Plan to address problem: - Hepatitis serologies (-) so far. Likely EtOH, but patient denies; however infiltrative disease (amyloid, lymphoma) or severe RUBIO could be possible. - Will get liver biopsy, as if this is aggressive lesion, will need therapy sooner rather than later. Subjective Date of service: 04/16/17 Principal diagnosis: Liver Disease Interval history: The patient is stable without N/V/abdominal pain. The CT scan was reviewed with her. Continues to deny an excessive amount of EtOH, herbal products, etc. Objective - Constitutional Vitals: Temp Pulse Resp BP Pulse Ox 97.8 F 79 18 115/70 100 04/16/17 07:27 04/16/17 07:27 04/16/17 07:27 04/16/17 07:27 04/16/17 07:27 General appearance: no acute distress - EENT Eyes: PERRL, scleral icterus ENT: hearing intact, clear oral mucosa - Respiratory Respiratory effort: normal Respiratory: bilateral: CTA - Cardiovascular Rhythm: regular Heart Sounds: Present: S1 & S2 - Gastrointestinal General gastrointestinal: Present: soft, non-tender, non-distended - Labs CBC & Chem 7: 04/16/17 05:28 04/16/17 05:28 Labs: Laboratory Results - last 24 hr 04/15/17 04/15/17 04/15/17 12:13 17:51 17:51 WBC RBC Hgb Hct MCV MCH MCHC RDW Plt Count Add Manual Diff Total Counted Seg Neutrophils % Seg Neuts % (Manual) Band Neutrophils % Lymphocytes % (Manual) Reactive Lymphs % (Man) Monocytes % (Manual) Eosinophils % (Manual) Basophils % (Manual) Metamyelocytes % Myelocytes % Promyelocytes % Blast Cells % Nucleated RBC % Seg Neutrophils # Man Band Neutrophils # Lymphocytes # (Manual) Abs React Lymphs (Man) Monocytes # (Manual) Eosinophils # (Manual) Basophils # (Manual) Metamyelocytes # Myelocytes # Promyelocytes # Blast Cells # WBC Morphology Hypersegmented Neuts Hyposegmented Neuts Hypogranular Neuts Smudge Cells Toxic Granulation Toxic Vacuolation Dohle Bodies Pelger-Huet Anomaly Kim Rods Platelet Estimate Clumped Platelets Plt Clumps, EDTA Large Platelets Giant Platelets Platelet Satelliting Plt Morphology Comment RBC Morphology Dimorphic RBCs Polychromasia Hypochromasia Poikilocytosis Anisocytosis Microcytosis Macrocytosis Spherocytes Pappenheimer Bodies Sickle Cells Target Cells Tear Drop Cells Ovalocytes Stomatocytes Helmet Cells Arce-Kremmling Bodies Hollister Rings Mehran Cells Bite Cells Crenated Cell Elliptocytes Acanthocytes (Spur) Rouleaux Hemoglobin C Crystals Schistocytes Malaria parasites Vladislav Bodies Hem Pathologist Commnt Sodium Potassium Chloride Carbon Dioxide Anion Gap BUN Creatinine Estimated GFR BUN/Creatinine Ratio Glucose POC Glucose Calcium Magnesium 0.80 L* Total Bilirubin Direct Bilirubin Indirect Bilirubin AST ALT Alkaline Phosphatase Total Protein Albumin Albumin/Globulin Ratio Hep Bs Antigen Non-reactive Hepatitis C Antibody Non-reactive 04/15/17 04/16/17 04/16/17 21:59 05:28 05:28 WBC 6.0 RBC 2.58 L Hgb 8.8 L Hct 26.5 L MCV 103 H MCH 34 H MCHC 33 RDW 16.0 H Plt Count 206 Add Manual Diff Complete Total Counted 100 Seg Neutrophils % Patternmaker Grader Seg Neuts % (Manual) 80.0 H Band Neutrophils % 4.0 Lymphocytes % (Manual) 8.0 L Reactive Lymphs % (Man) 0 Monocytes % (Manual) 5.0 Eosinophils % (Manual) 3.0 Basophils % (Manual) 0 Metamyelocytes % 0 Myelocytes % 0 Promyelocytes % 0 Blast Cells % 0 Nucleated RBC % 3.0 H Seg Neutrophils # Man 4.8 Band Neutrophils # 0.2 Lymphocytes # (Manual) 0.5 L Abs React Lymphs (Man) 0.0 Monocytes # (Manual) 0.3 Eosinophils # (Manual) 0.2 Basophils # (Manual) 0.0 Metamyelocytes # 0.0 Myelocytes # 0.0 Promyelocytes # 0.0 Blast Cells # 0.0 WBC Morphology Not Reportable Hypersegmented Neuts Not Reportable Hyposegmented Neuts Not Reportable Hypogranular Neuts Not Reportable Smudge Cells Not Reportable Toxic Granulation Rare Toxic Vacuolation Not Reportable Dohle Bodies Not Reportable Pelger-Huet Anomaly Not Reportable Kim Rods Not Reportable Platelet Estimate Consistent w auto Clumped Platelets Not Reportable Plt Clumps, EDTA Not Reportable Large Platelets Rare Giant Platelets Not Reportable Platelet Satelliting Not Reportable Plt Morphology Comment Not Reportable RBC Morphology Not Reportable Dimorphic RBCs Not Reportable Polychromasia Not Reportable Hypochromasia Not Reportable Poikilocytosis Not Reportable Anisocytosis Not Reportable Microcytosis Not Reportable Macrocytosis Not Reportable Spherocytes Not Reportable Pappenheimer Bodies Not Reportable Sickle Cells Not Reportable Target Cells 1+ Tear Drop Cells Not Reportable Ovalocytes Not Reportable Stomatocytes 1+ Helmet Cells Not Reportable Arce-[place]remmling Bodies Not Reportable Holl[place] Rings Not Reportable Mehran Cells Not Reportable Bite Cells Not Reportable Crenated Cell Not Reportable Elliptocytes Not Reportable Acanthocytes (Spur) Not Reportable Rouleaux Not Reportable Hemoglobin C Crystals Not Reportable Schistocytes Not Reportable Malaria parasites Not Reportable Vladislav Bodies Not Reportable Hem Pathologist Commnt No Sodium 129 L Potassium 2.7 L* Chloride 90.6 L Carbon Dioxide 24 Anion Gap 17 BUN 5 L Creatinine 0.3 L Estimated GFR > 60 BUN/Creatinine Ratio 16.66 Glucose 49 L POC Glucose 253 H Calcium 6.5 L Magnesium 2.20 Total Bilirubin 9.50 H Direct Bilirubin 7.5 H Indirect Bilirubin 2.0 AST 239 H ALT 71 H Alkaline Phosphatase 442 H Total Protein 6.1 L Albumin 2.1 L Albumin/Globulin Ratio 0.5 Hep Bs Antigen Hepatitis C Antibody 04/16/17 04/16/17 04/16/17 05:29 06:33 13:01 WBC RBC Hgb Hct MCV MCH MCHC RDW Plt Count Add Manual Diff Total Counted Seg Neutrophils % Seg Neuts % (Manual) Band Neutrophils % Lymphocytes % (Manual) Reactive Lymphs % (Man) Monocytes % (Manual) Eosinophils % (Manual) Basophils % (Manual) Metamyelocytes % Myelocytes % Promyelocytes % Blast Cells % Nucleated RBC % Seg Neutrophils # Man Band Neutrophils # Lymphocytes # (Manual) Abs React Lymphs (Man) Monocytes # (Manual) Eosinophils # (Manual) Basophils # (Manual) Metamyelocytes # Myelocytes # Promyelocytes # Blast Cells # WBC Morphology Hypersegmented Neuts Hyposegmented Neuts Hypogranular Neuts Smudge Cells Toxic Granulation Toxic Vacuolation Dohle Bodies Pelger-Huet Anomaly Kim Rods Platelet Estimate Clumped Platelets Plt Clumps, EDTA Large Platelets Giant Platelets Platelet Satelliting Plt Morphology Comment RBC Morphology Dimorphic RBCs Polychromasia Hypochromasia Poikilocytosis Anisocytosis Microcytosis Macrocytosis Spherocytes Pappenheimer Bodies Sickle Cells Target Cells Tear Drop Cells Ovalocytes Stomatocytes Helmet Cells Arce-Kremmling Bodies Hollister Rings Mehran Cells Bite Cells Crenated Cell Elliptocytes Acanthocytes (Spur) Rouleaux Hemoglobin C Crystals Schistocytes Malaria parasites Vladislav Bodies Hem Pathologist Commnt Sodium Potassium Chloride Carbon Dioxide Anion Gap BUN Creatinine Estimated GFR BUN/Creatinine Ratio Glucose POC Glucose 68 L 224 H 80 Calcium Magnesium Total Bilirubin Direct Bilirubin Indirect Bilirubin AST ALT Alkaline Phosphatase Total Protein Albumin Albumin/Globulin Ratio Hep Bs Antigen Hepatitis C Antibody
--- NOTE | 2017-04-16 16:10 | Progress Note ---
Assessment and Plan Assessment and plan: 69-year-old male past medical history of hypertension, coronary artery disease, diabetes, hyperlipidemia, GERD, major depression. Presents to the hospital with dizziness upon standing. Complaining of multiple fall over a period of 2 weeks. She is markedly jaundiced, complaining of itching. Her labs showed transaminitis, elevated alkaline phosphatase and elevated bilirubin CT of the C-spine, image reviewed, no acute findings CTH, image reviewed, no acute findings US- abdomen, image reviewed, no acute findings Hyperbilirubinemia/Transaminitis * US abdomen shows cholethiasis without obstruction or inflammation * direct bilirubin elevated, CT abdomen and pelvis shows liver abnormality, GI consult appreciated * need to exclude malignancy, for liver bx, NPO after MN, Hepatitis serology negative so far Dizziness and giddiness, dehydration * She is on multiple sedating medications. Including OxyContin, amitriptyline, gabapentin and tizanidine, we'll try to minimize these medications for now * Obtain orthostatic blood pressure and echocardiogram, check cxr Hyponatremia/dehydration/hypokalemia * IV fluids with NS and KCl Hypotension hx of Hypertension * We'll hold blood pressure medications in the meantime, check orthostatic vital signs * she is relatively hypotensive, continue IVF Insulin-dependent type 2 Diabetes * Continue long-acting insulin along with sliding scale Hypokalemia * Continue potassium supplements, IV and by mouth Hypomagnesemia * repleted IV and has normalized History of CAD * Continue beta bridger, aspirin * Cardiology input appreciated, classical has been discontinued, as it has been greater than 1 year since drug-eluting stent Debility/Frequent falls PT consult, and plan for SNIF placement Severe malnutrition * Dietitian consult DVT prophylaxis with Lovenox History Interval history: continues to c/o generalized weakness, and exhaustion , still jaudiced, with yellow skin and eyes, c/o of Lower back pain, dull 4/10 to 10/10 , exacerbated by activity, relieved by pain meds Hospitalist Physical - Physical exam Narrative exam: General.: Appears chronically ill, HEENT: Moist mucous membranes, extraocular muscles intact, no lymphadenopathy, icteric sclera Neck: supple Cardiac: S1-S2 heard Lungs: clear to auscultation bilaterally Abdomen: soft , nontender, nondistended, bowel sounds positive Extremities: no edema clubbing or cyanosis Skin: no rash or lesions, jaundice, multiple bruises, wounds and erosions of multiple age Neurologic: no gross focal deficits, generalized weaknses Psych: appropriate behavior, appropriate mood, corporative, judgment intact - Constitutional Vitals: Temp Pulse Resp BP Pulse Ox 97.1 F L 90 18 105/50 98 04/16/17 15:23 04/16/17 15:23 04/16/17 15:23 04/16/17 15:23 04/16/17 15:23 General appearance: Present: no acute distress Results - Labs CBC & Chem 7: 04/16/17 05:28 04/16/17 05:28 Labs: Laboratory Last Values WBC 6.0 K/mm3 (4.5-11.0) 04/16/17 05:28 RBC 2.58 M/mm3 (3.65-5.03) L 04/16/17 05:28 Hgb 8.8 gm/dl (10.1-14.3) L 04/16/17 05:28 Hct 26.5 % (30.3-42.9) L 04/16/17 05:28 MCV 103 fl (79-97) H 04/16/17 05:28 MCH 34 pg (28-32) H 04/16/17 05:28 MCHC 33 % (30-34) 04/16/17 05:28 RDW 16.0 % (13.2-15.2) H 04/16/17 05:28 Plt Count 206 K/mm3 (140-440) 04/16/17 05:28 Lymph % (Auto) Stain Sprayer 04/14/17 23:35 Add Manual Diff Complete 04/16/17 05:28 Total Counted 100 04/16/17 05:28 Seg Neutrophils % Stain Sprayer 04/16/17 05:28 Seg Neuts % (Manual) 80.0 % (40.0-70.0) H 04/16/17 05:28 Band Neutrophils % 4.0 % 04/16/17 05:28 Lymphocytes % (Manual) 8.0 % (13.4-35.0) L 04/16/17 05:28 Reactive Lymphs % (Man) 0 % 04/16/17 05:28 Monocytes % (Manual) 5.0 % (0.0-7.3) 04/16/17 05:28 Eosinophils % (Manual) 3.0 % (0.0-4.3) 04/16/17 05:28 Basophils % (Manual) 0 % (0.0-1.8) 04/16/17 05:28 Metamyelocytes % 0 % 04/16/17 05:28 Myelocytes % 0 % 04/16/17 05:28 Promyelocytes % 0 % 04/16/17 05:28 Blast Cells % 0 % 04/16/17 05:28 Nucleated RBC % 3.0 % (0.0-0.9) H 04/16/17 05:28 Seg Neutrophils # Man 4.8 K/mm3 (1.8-7.7) 04/16/17 05:28 Band Neutrophils # 0.2 K/mm3 04/16/17 05:28 Lymphocytes # (Manual) 0.5 K/mm3 (1.2-5.4) L 04/16/17 05:28 Abs React Lymphs (Man) 0.0 K/mm3 04/16/17 05:28 Monocytes # (Manual) 0.3 K/mm3 (0.0-0.8) 04/16/17 05:28 Eosinophils # (Manual) 0.2 K/mm3 (0.0-0.4) 04/16/17 05:28 Basophils # (Manual) 0.0 K/mm3 (0.0-0.1) 04/16/17 05:28 Metamyelocytes # 0.0 K/mm3 04/16/17 05:28 Myelocytes # 0.0 K/mm3 04/16/17 05:28 Promyelocytes # 0.0 K/mm3 04/16/17 05:28 Blast Cells # 0.0 K/mm3 04/16/17 05:28 WBC Morphology Not Reportable 04/16/17 05:28 Hypersegmented Neuts Not Reportable 04/16/17 05:28 Hyposegmented Neuts Not Reportable 04/16/17 05:28 Hypogranular Neuts Not Reportable 04/16/17 05:28 Smudge Cells Not Reportable 04/16/17 05:28 Toxic Granulation Rare 04/16/17 05:28 Toxic Vacuolation Not Reportable 04/16/17 05:28 Dohle Bodies Not Reportable 04/16/17 05:28 Pelger-Huet Anomaly Not Reportable 04/16/17 05:28 Kim Rods Not Reportable 04/16/17 05:28 Platelet Estimate Consistent w auto 04/16/17 05:28 Clumped Platelets Not Reportable 04/16/17 05:28 Plt Clumps, EDTA Not Reportable 04/16/17 05:28 Large Platelets Rare 04/16/17 05:28 Giant Platelets Not Reportable 04/16/17 05:28 Platelet Satelliting Not Reportable 04/16/17 05:28 Plt Morphology Comment Not Reportable 04/16/17 05:28 RBC Morphology Not Reportable 04/16/17 05:28 Dimorphic RBCs Not Reportable 04/16/17 05:28 Polychromasia Not Reportable 04/16/17 05:28 Hypochromasia Not Reportable 04/16/17 05:28 Poikilocytosis Not Reportable 04/16/17 05:28 Anisocytosis Not Reportable 04/16/17 05:28 Microcytosis Not Reportable 04/16/17 05:28 Macrocytosis Not Reportable 04/16/17 05:28 Spherocytes Not Reportable 04/16/17 05:28 Pappenheimer Bodies Not Reportable 04/16/17 05:28 Sickle Cells Not Reportable 04/16/17 05:28 Target Cells 1+ 04/16/17 05:28 Tear Drop Cells Not Reportable 04/16/17 05:28 Ovalocytes Not Reportable 04/16/17 05:28 Stomatocytes 1+ 04/16/17 05:28 Helmet Cells Not Reportable 04/16/17 05:28 [place] Bodies Not Reportable 04/16/17 05:28 [place] Rings Not Reportable 04/16/17 05:28 Mehran Cells Not Reportable 04/16/17 05:28 Bite Cells Not Reportable 04/16/17 05:28 Crenated Cell Not Reportable 04/16/17 05:28 Elliptocytes Not Reportable 04/16/17 05:28 Acanthocytes (Spur) Not Reportable 04/16/17 05:28 Rouleaux Not Reportable 04/16/17 05:28 Hemoglobin C Crystals Not Reportable 04/16/17 05:28 Schistocytes Not Reportable 04/16/17 05:28 Malaria parasites Not Reportable 04/16/17 05:28 Vladislav Bodies Not Reportable 04/16/17 05:28 Hem Pathologist Commnt No 04/16/17 05:28 PT 16.4 Sec. (12.2-14.9) H 04/15/17 03:03 INR 1.33 (0.87-1.13) H 04/15/17 03:03 APTT 38.8 Sec. (24.2-36.6) H 04/15/17 03:03 D-Dimer 177.26 ng/mlDDU (0-234) 04/15/17 03:03 VBG pH 7.423 (7.320-7.420) H 04/14/17 23:35 Sodium 129 mmol/L (137-145) L 04/16/17 05:28 Potassium 2.7 mmol/L (3.6-5.0) L* 04/16/17 05:28 Chloride 90.6 mmol/L (98-107) L 04/16/17 05:28 Carbon Dioxide 24 mmol/L (22-30) 04/16/17 05:28 Anion Gap 17 mmol/L 04/16/17 05:28 BUN 5 mg/dL (7-17) L 04/16/17 05:28 Creatinine 0.3 mg/dL (0.7-1.2) L 04/16/17 05:28 Estimated GFR > 60 ml/min 04/16/17 05:28 BUN/Creatinine Ratio 16.66 % 04/16/17 05:28 Glucose 49 mg/dL (65-100) L 04/16/17 05:28 POC Glucose 80 (70-105) 04/16/17 13:01 Calcium 6.5 mg/dL (8.4-10.2) L 04/16/17 05:28 Magnesium 2.20 mg/dL (1.7-2.3) 04/16/17 05:28 Total Bilirubin 9.50 mg/dL (0.1-1.2) H 04/16/17 05:28 Direct Bilirubin 7.5 mg/dL (0-0.2) H 04/16/17 05:28 Indirect Bilirubin 2.0 mg/dL 04/16/17 05:28 AST 239 units/L (5-40) H 04/16/17 05:28 ALT 71 units/L (7-56) H 04/16/17 05:28 Alkaline Phosphatase 442 units/L (35-129) H 04/16/17 05:28 Total Creatine Kinase 49 units/L (30-135) 04/15/17 05:59 CK-MB (CK-2) < 1.0 ng/mL (0.0-4.0) 04/15/17 05:59 CK-MB (CK-2) Rel Index 2.0 (0-4) 04/15/17 05:59 Troponin T < 0.010 ng/mL (0.00-0.029) 04/15/17 12:13 Total Protein 6.1 g/dL (6.3-8.2) L 04/16/17 05:28 Albumin 2.1 g/dL (3.9-5) L 04/16/17 05:28 Albumin/Globulin Ratio 0.5 % 04/16/17 05:28 TSH 1.660 mlU/mL (0.270-4.200) 04/14/17 23:35 Free T4 0.86 ng/dL (0.76-1.46) 04/14/17 23:35 Urine Color Kimberly (Yellow) 04/15/17 04:53 Urine Turbidity Clear (Clear) 04/15/17 04:53 Urine pH 6.0 (5.0-7.0) 04/15/17 04:53 Ur Specific [place] 1.003 (1.003-1.030) 04/15/17 04:53 Urine Protein <15 mg/dl mg/dL (Negative) 04/15/17 04:53 Urine Glucose (UA) Neg mg/dL (Negative) 04/15/17 04:53 Urine Ketones Neg mg/dL (Negative) 04/15/17 04:53 Urine Blood Neg (Negative) 04/15/17 04:53 Urine Nitrite Neg (Negative) 04/15/17 04:53 Urine Bilirubin Sm (Negative) 04/15/17 04:53 Urine Ictotest Positive (Negative) 04/15/17 04:53 Urine Urobilinogen 2.0 mg/dL (<2.0) 04/15/17 04:53 Ur Leukocyte Esterase Neg (Negative) 04/15/17 04:53 Urine WBC (Auto) 2.0 /HPF (0.0-6.0) 04/15/17 04:53 Urine RBC (Auto) 3.0 /HPF (0.0-6.0) 04/15/17 04:53 U Epithel Cells (Auto) 1.0 /HPF (0-13.0) 04/15/17 04:53 Urine Bacteria (Auto) 1+ /HPF (Negative) 04/15/17 04:53 Hep Bs Antigen Non-reactive (Negative) 04/15/17 17:51 Hepatitis C Antibody Non-reactive (NonReactive) 04/15/17 17:51 - Imaging and Cardiology Chest x-ray: image reviewed (abnormalities seen) CT scan - abdomen: image reviewed (liver abnormality noted)
[2017-04-16] MEDS ORDERED: NS/KCL 40MEQ 40 MEQ/1,000 ML BAG IV SCH (17:00)
[2017-04-16] MEDS: ZOCOR PO SCH (21:31)
[2017-04-16] MEDS ORDERED: LEVEMIR SUB-Q SCH (22:00)
[2017-04-17] MEDS: NOVOLOG SUB-Q SCH ×5 (01:03→22:20)
[2017-04-17] MEDS ORDERED: D50W (25GM) Syringe IV ONE ×2 (05:52→11:35)
[2017-04-17 06:00] LABS: Alanine Aminotransferase 68 units/L (7-56); Albumin/Globulin Ratio 0.5 %; Alkaline Phosphatase 419 units/L (35-129); Anion Gap 19 mmol/L; BUN/Creatinine Ratio 13.33; Blood Urea Nitrogen 4 mg/dL (7-17); Calcium 6.3 mg/dL (8.4-10.2); Carbon Dioxide 18 mmol/L (22-30); Chloride 104.3 mmol/L (98-107); Glucose 40 mg/dL (65-100); Hematocrit 24.8 % (30.3-42.9); Hemoglobin 8.2 gm/dl (10.1-14.3); Mean Corpuscular HGB Conc 33 % (30-34); Mean Corpuscular Hemoglobin 34 pg (28-32); Mean Corpuscular Volume 104 fl (79-97); Platelet Count 213 K/mm3 (140-440); Potassium 5.1 mmol/L (3.6-5.0); Red Blood Count 2.38 M/mm3 (3.65-5.03); Red Cell Distribution Width 16.5 % (13.2-15.2); Sodium 136 mmol/L (137-145); Total Protein 5.9 g/dL (6.3-8.2); White Blood Count 6.2 K/mm3 (4.5-11.0)
--- NOTE | 2017-04-17 09:20 | Progress Note ---
Assessment and Plan Assessment and plan: 69-year-old male past medical history of hypertension, coronary artery disease, diabetes, hyperlipidemia, GERD, major depression. Presents to the hospital with dizziness upon standing. Complaining of multiple fall over a period of 2 weeks. She is markedly jaundiced, complaining of itching. Her labs showed transaminitis, elevated alkaline phosphatase and elevated bilirubin CT of the C-spine, image reviewed, no acute findings CTH, image reviewed, no acute findings US- abdomen, image reviewed, no acute findings Hyperbilirubinemia/Transaminitis (highly suspicious of malignancy) * US abdomen shows cholethiasis without obstruction or inflammation * direct bilirubin elevated, CT abdomen and pelvis shows liver abnormality, GI consult appreciated * need to exclude malignancy, sp liver bx, Hepatitis serology negative so far Dizziness and giddiness, dehydration * She is on multiple sedating medications. Including OxyContin, amitriptyline, gabapentin and tizanidine, we'll try to minimize these medications for now * orthostatic vital signs showed a drop in systolic pressure upon standing and echocardiogram shows preserved EF with diastolic dysfunction, CXR shows no acute abnormalities Hyponatremia/dehydration/hypokalemia * Continue IV fluids, continue to replete potassium as needed Hypotension * All blood pressure medications have been discontinued Hypoglycemia in a patient with history of Insulin-dependent type 2 Diabetes * Discontinue long-acting insulin, continue sliding scale insulin only Hypokalemia * Repleted and corrected Hypomagnesemia * Repleted and corrected History of CAD * Continue beta bridger, aspirin * Cardiology input appreciated, PRASUGREL has been discontinued, as it has been greater than 1 year since drug-eluting stent Debility/Frequent falls PT consult, and plan for SNIF placement Severe malnutrition * Dietitian consult DVT prophylaxis with Lovenox This patient is planned for SNIF placement, she will need to follow up in gastroenterology clinic for her liver biopsy results History Interval history: continues to c/o generalized weakness, and exhaustion , still jaudiced, with yellow skin and eyes, c/o of Lower back pain, dull 4/10 to 10/10 , exacerbated by activity, relieved by pain meds Hospitalist Physical - Physical exam Narrative exam: General.: Appears chronically ill, HEENT: Moist mucous membranes, extraocular muscles intact, no lymphadenopathy, icteric sclera Neck: supple Cardiac: S1-S2 heard Lungs: clear to auscultation bilaterally Abdomen: soft , nontender, nondistended, bowel sounds positive Extremities: no edema clubbing or cyanosis Skin: no rash or lesions, jaundice, multiple bruises, wounds and erosions of multiple age Neurologic: no gross focal deficits, generalized weaknses Psych: appropriate behavior, appropriate mood, corporative, judgment intact - Constitutional Vitals: Temp Pulse Resp BP Pulse Ox 98.3 F 86 18 100/57 99 04/17/17 07:33 04/17/17 07:33 04/17/17 07:33 04/17/17 07:33 04/17/17 07:33 General appearance: Present: no acute distress Results - Labs CBC & Chem 7: 04/17/17 04:13 04/17/17 04:13 Labs: Laboratory Last Values WBC 6.2 K/mm3 (4.5-11.0) 04/17/17 04:13 RBC 2.38 M/mm3 (3.65-5.03) L 04/17/17 04:13 Hgb 8.2 gm/dl (10.1-14.3) L 04/17/17 04:13 Hct 24.8 % (30.3-42.9) L 04/17/17 04:13 MCV 104 fl (79-97) H 04/17/17 04:13 MCH 34 pg (28-32) H 04/17/17 04:13 MCHC 33 % (30-34) 04/17/17 04:13 RDW 16.5 % (13.2-15.2) H 04/17/17 04:13 Plt Count 213 K/mm3 (140-440) 04/17/17 04:13 Lymph % (Auto) Home Delivery Driver 04/14/17 23:35 Add Manual Diff Complete 04/16/17 05:28 Total Counted 100 04/16/17 05:28 Seg Neutrophils % Home Delivery Driver 04/16/17 05:28 Seg Neuts % (Manual) 80.0 % (40.0-70.0) H 04/16/17 05:28 Band Neutrophils % 4.0 % 04/16/17 05:28 Lymphocytes % (Manual) 8.0 % (13.4-35.0) L 04/16/17 05:28 Reactive Lymphs % (Man) 0 % 04/16/17 05:28 Monocytes % (Manual) 5.0 % (0.0-7.3) 04/16/17 05:28 Eosinophils % (Manual) 3.0 % (0.0-4.3) 04/16/17 05:28 Basophils % (Manual) 0 % (0.0-1.8) 04/16/17 05:28 Metamyelocytes % 0 % 04/16/17 05:28 Myelocytes % 0 % 04/16/17 05:28 Promyelocytes % 0 % 04/16/17 05:28 Blast Cells % 0 % 04/16/17 05:28 Nucleated RBC % 3.0 % (0.0-0.9) H 04/16/17 05:28 Seg Neutrophils # Man 4.8 K/mm3 (1.8-7.7) 04/16/17 05:28 Band Neutrophils # 0.2 K/mm3 04/16/17 05:28 Lymphocytes # (Manual) 0.5 K/mm3 (1.2-5.4) L 04/16/17 05:28 Abs React Lymphs (Man) 0.0 K/mm3 04/16/17 05:28 Monocytes # (Manual) 0.3 K/mm3 (0.0-0.8) 04/16/17 05:28 Eosinophils # (Manual) 0.2 K/mm3 (0.0-0.4) 04/16/17 05:28 Basophils # (Manual) 0.0 K/mm3 (0.0-0.1) 04/16/17 05:28 Metamyelocytes # 0.0 K/mm3 04/16/17 05:28 Myelocytes # 0.0 K/mm3 04/16/17 05:28 Promyelocytes # 0.0 K/mm3 04/16/17 05:28 Blast Cells # 0.0 K/mm3 04/16/17 05:28 WBC Morphology Not Reportable 04/16/17 05:28 Hypersegmented Neuts Not Reportable 04/16/17 05:28 Hyposegmented Neuts Not Reportable 04/16/17 05:28 Hypogranular Neuts Not Reportable 04/16/17 05:28 Smudge Cells Not Reportable 04/16/17 05:28 Toxic Granulation Rare 04/16/17 05:28 Toxic Vacuolation Not Reportable 04/16/17 05:28 Dohle Bodies Not Reportable 04/16/17 05:28 Pelger-Huet Anomaly Not Reportable 04/16/17 05:28 Kim Rods Not Reportable 04/16/17 05:28 Platelet Estimate Consistent w auto 04/16/17 05:28 Clumped Platelets Not Reportable 04/16/17 05:28 Plt Clumps, EDTA Not Reportable 04/16/17 05:28 Large Platelets Rare 04/16/17 05:28 Giant Platelets Not Reportable 04/16/17 05:28 Platelet Satelliting Not Reportable 04/16/17 05:28 Plt Morphology Comment Not Reportable 04/16/17 05:28 RBC Morphology Not Reportable 04/16/17 05:28 Dimorphic RBCs Not Reportable 04/16/17 05:28 Polychromasia Not Reportable 04/16/17 05:28 Hypochromasia Not Reportable 04/16/17 05:28 Poikilocytosis Not Reportable 04/16/17 05:28 Anisocytosis Not Reportable 04/16/17 05:28 Microcytosis Not Reportable 04/16/17 05:28 Macrocytosis Not Reportable 04/16/17 05:28 Spherocytes Not Reportable 04/16/17 05:28 Pappenheimer Bodies Not Reportable 04/16/17 05:28 Sickle Cells Not Reportable 04/16/17 05:28 Target Cells 1+ 04/16/17 05:28 Tear Drop Cells Not Reportable 04/16/17 05:28 Ovalocytes Not Reportable 04/16/17 05:28 Stomatocytes 1+ 04/16/17 05:28 Helmet Cells Not Reportable 04/16/17 05:28 [place] Bodies Not Reportable 04/16/17 05:28 [place] Rings Not Reportable 04/16/17 05:28 [place] Cells Not Reportable 04/16/17 05:28 Bite Cells Not Reportable 04/16/17 05:28 Crenated Cell Not Reportable 04/16/17 05:28 Elliptocytes Not Reportable 04/16/17 05:28 Acanthocytes (Spur) Not Reportable 04/16/17 05:28 Rouleaux Not Reportable 04/16/17 05:28 Hemoglobin C Crystals Not Reportable 04/16/17 05:28 Schistocytes Not Reportable 04/16/17 05:28 Malaria parasites Not Reportable 04/16/17 05:28 Vladislav Bodies Not Reportable 04/16/17 05:28 Hem Pathologist Commnt No 04/16/17 05:28 PT 16.4 Sec. (12.2-14.9) H 04/15/17 03:03 INR 1.33 (0.87-1.13) H 04/15/17 03:03 APTT 38.8 Sec. (24.2-36.6) H 04/15/17 03:03 D-Dimer 177.26 ng/mlDDU (0-234) 04/15/17 03:03 VBG pH 7.423 (7.320-7.420) H 04/14/17 23:35 Sodium 136 mmol/L (137-145) L D 04/17/17 04:13 Potassium 5.1 mmol/L (3.6-5.0) H 04/17/17 04:13 Chloride 104.3 mmol/L (98-107) 04/17/17 04:13 Carbon Dioxide 18 mmol/L (22-30) L 04/17/17 04:13 Anion Gap 19 mmol/L 04/17/17 04:13 BUN 4 mg/dL (7-17) L 04/17/17 04:13 Creatinine 0.3 mg/dL (0.7-1.2) L 04/17/17 04:13 Estimated GFR > 60 ml/min 04/17/17 04:13 BUN/Creatinine Ratio 13.33 % 04/17/17 04:13 Glucose 40 mg/dL (65-100) L 04/17/17 04:13 POC Glucose 128 (70-105) H 04/17/17 06:28 Calcium 6.3 mg/dL (8.4-10.2) L 04/17/17 04:13 Magnesium 2.00 mg/dL (1.7-2.3) 04/17/17 04:13 Total Bilirubin 7.80 mg/dL (0.1-1.2) H 04/17/17 04:13 Direct Bilirubin 7.5 mg/dL (0-0.2) H 04/16/17 05:28 Indirect Bilirubin 2.0 mg/dL 04/16/17 05:28 AST 180 units/L (5-40) H 04/17/17 04:13 ALT 68 units/L (7-56) H 04/17/17 04:13 Alkaline Phosphatase 419 units/L (35-129) H 04/17/17 04:13 Total Creatine Kinase 49 units/L (30-135) 04/15/17 05:59 CK-MB (CK-2) < 1.0 ng/mL (0.0-4.0) 04/15/17 05:59 CK-MB (CK-2) Rel Index 2.0 (0-4) 04/15/17 05:59 Troponin T < 0.010 ng/mL (0.00-0.029) 04/15/17 12:13 Total Protein 5.9 g/dL (6.3-8.2) L 04/17/17 04:13 Albumin 2.0 g/dL (3.9-5) L 04/17/17 04:13 Albumin/Globulin Ratio 0.5 % 04/17/17 04:13 TSH 1.660 mlU/mL (0.270-4.200) 04/14/17 23:35 Free T4 0.86 ng/dL (0.76-1.46) 04/14/17 23:35 Urine Color Kimberly (Yellow) 04/15/17 04:53 Urine Turbidity Clear (Clear) 04/15/17 04:53 Urine pH 6.0 (5.0-7.0) 04/15/17 04:53 Ur Specific [place] 1.003 (1.003-1.030) 04/15/17 04:53 Urine Protein <15 mg/dl mg/dL (Negative) 04/15/17 04:53 Urine Glucose (UA) Neg mg/dL (Negative) 04/15/17 04:53 Urine Ketones Neg mg/dL (Negative) 04/15/17 04:53 Urine Blood Neg (Negative) 04/15/17 04:53 Urine Nitrite Neg (Negative) 04/15/17 04:53 Urine Bilirubin Sm (Negative) 04/15/17 04:53 Urine Ictotest Positive (Negative) 04/15/17 04:53 Urine Urobilinogen 2.0 mg/dL (<2.0) 04/15/17 04:53 Ur Leukocyte Esterase Neg (Negative) 04/15/17 04:53 Urine WBC (Auto) 2.0 /HPF (0.0-6.0) 04/15/17 04:53 Urine RBC (Auto) 3.0 /HPF (0.0-6.0) 04/15/17 04:53 U Epithel Cells (Auto) 1.0 /HPF (0-13.0) 04/15/17 04:53 Urine Bacteria (Auto) 1+ /HPF (Negative) 04/15/17 04:53 Hep Bs Antigen Non-reactive (Negative) 04/15/17 17:51 Hepatitis C Antibody Non-reactive (NonReactive) 04/15/17 17:51
[2017-04-17] MEDS ORDERED: VERSED IV ONE (11:00)
[2017-04-17] MEDS ORDERED: SUBLIMAZE IV ONE (11:00)
[2017-04-17] MEDS: THERAGRAN-M Tab PO SCH (11:10)
[2017-04-17] MEDS: PROTONIX PO SCH (11:10)
--- NOTE | 2017-04-17 11:25 | Gastroenterology Progress Note ---
Assessment and Plan 1.hepatomegaly 2.elevated LFTs - T.nabeel 7.8, AST 180, ALT 68, alk phos 419-trending down -hepatitis serologies negative so far -autoimmune studies pending -s/p liver bx today-results pending -etiology unclear- likely ETOH however pt denies vs possible infiltrative disease (amyloid, lymphoma) vs possible severe RUBIO -will order AFP -continue to trend LFTs and supportive care -will follow Subjective Date of service: 04/17/17 Principal diagnosis: Liver Disease Interval history: Patient resting in bed. No acute distress or complaints. Denies abd pain or N/V. Objective - Constitutional Vitals: Temp Pulse Resp BP Pulse Ox 98.3 F 78 16 117/69 91 04/17/17 07:33 04/17/17 10:48 04/17/17 10:48 04/17/17 10:48 04/17/17 10:48 General appearance: no acute distress - EENT Eyes: PERRL, EOM intact ENT: hearing intact - Respiratory Respiratory: bilateral: CTA - Cardiovascular Rhythm: regular Heart Sounds: Present: S1 & S2 - Extremities Extremities: No edema - Gastrointestinal General gastrointestinal: Present: soft, non-tender, non-distended, normal bowel sounds - Integumentary Integumentary: Present: warm, dry - Neurologic Neurological: alert and oriented x3 - Labs CBC & Chem 7: 04/17/17 04:13 04/17/17 04:13 Labs: Laboratory Results - last 24 hr 04/16/17 04/16/17 04/16/17 13:01 16:44 21:04 WBC RBC Hgb Hct MCV MCH MCHC RDW Plt Count Sodium Potassium 5.1 H D Chloride Carbon Dioxide Anion Gap BUN Creatinine Estimated GFR BUN/Creatinine Ratio Glucose POC Glucose 80 156 H Calcium Magnesium Total Bilirubin AST ALT Alkaline Phosphatase Total Protein Albumin Albumin/Globulin Ratio 04/16/17 04/17/17 04/17/17 21:05 04:13 04:13 WBC 6.2 RBC 2.38 L Hgb 8.2 L Hct 24.8 L MCV 104 H MCH 34 H MCHC 33 RDW 16.5 H Plt Count 213 Sodium 136 L D Potassium 5.1 H Chloride 104.3 Carbon Dioxide 18 L Anion Gap 19 BUN 4 L Creatinine 0.3 L Estimated GFR > 60 BUN/Creatinine Ratio 13.33 Glucose 40 L POC Glucose 125 H Calcium 6.3 L Magnesium 2.00 Total Bilirubin 7.80 H AST 180 H ALT 68 H Alkaline Phosphatase 419 H Total Protein 5.9 L Albumin 2.0 L Albumin/Globulin Ratio 0.5 04/17/17 04/17/17 05:51 06:28 WBC RBC Hgb Hct MCV MCH MCHC RDW Plt Count Sodium Potassium Chloride Carbon Dioxide Anion Gap BUN Creatinine Estimated GFR BUN/Creatinine Ratio Glucose POC Glucose 45 L 128 H Calcium Magnesium Total Bilirubin AST ALT Alkaline Phosphatase Total Protein Albumin Albumin/Globulin Ratio
--- NOTE | 2017-04-17 13:19 | Progress Note ---
Assessment and Plan Assessment: Dizziness / Pre-syncope / BLE weakness - head CT with NAF; cervical spine CT with NAF; pt denies any loss of consciousness. 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 Hypoalbuminemia / malnutrition / poor appetite H/o HTN HLP DM Tobacco use - cessation encouraged Chronic back pain / arthritis Plan: Orthostatics slightly positive for orthostatic hypotension. Cont to hold anti- hypertensives. Initiate compression stockings. Slow, deliberate position changes encouraged. Continue ASA 81mg daily and statin if okay per GI. Replete electrolytes PRN. Recommend maintaining serum K~4 and serum Mg ~2 from cardiac standpoint. S/p liver bx today-results pending. Currently stable cardiac status. Nothing further to add from cardiac standopint at this time. Will see PRN. Recommend follow up in our office with Diamond Sweeney NP, within 1-2 weeks of hospital discharge ([phone]). Assessment and plan reviewed with pt at bedside. The patient has been seen in conjunction with Dr. Schwartz who agrees with the assessment and plan of care. Subjective Date of service: 04/17/17 Principal diagnosis: Liver Disease Interval history: Pt resting comfortably at bedside, underwent liver biopsy this AM. no current complaints. Objective Last Vital Signs Temp 98.2 F 04/17/17 13:11 Pulse 94 H 04/17/17 13:11 Resp 18 04/17/17 13:11 BP 108/67 04/17/17 13:11 Pulse Ox 100 04/17/17 13:11 - Physical Examination General: Appears Well HEENT: Positive: PERRL, Normocephaly, Mucus Membranes Moist, Other (icteric sclera) Neck: Positive: neck supple, trachea midline Cardiac: Positive: Reg Rate and Rhythm, S1/S2 Lungs: Positive: clear to auscultation Neuro: Positive: Grossly Intact, Cranial Nerve 2-12 Intact Abdomen: Positive: Unremarkable, Soft, Active Bowel Sounds. Negative: Tender Skin: Positive: Clear, Other (jaundiced). Negative: Rash, Wound Musculoskeletal: No Fluid Collection, No Pain, Normal Range of Motion Extremities: Absent: edema - Labs and Meds Cardiac Enzymes 04/17/17 Range/Units 04:13 AST 180 H (5-40) units/L CBC 04/17/17 Range/Units 04:13 WBC 6.2 (4.5-11.0) K/mm3 RBC 2.38 L (3.65-5.03) M/mm3 Hgb 8.2 L (10.1-14.3) gm/dl Hct 24.8 L (30.3-42.9) % Plt Count 213 (140-440) K/mm3 Comprehensive Metabolic Panel 04/16/17 04/17/17 Range/Units 21:04 04:13 Sodium 136 L D (137-145) mmol/L Potassium 5.1 H D 5.1 H (3.6-5.0) mmol/L Chloride 104.3 (98-107) mmol/L Carbon Dioxide 18 L (22-30) mmol/L BUN 4 L (7-17) mg/dL Creatinine 0.3 L (0.7-1.2) mg/dL Glucose 40 L (65-100) mg/dL Calcium 6.3 L (8.4-10.2) mg/dL AST 180 H (5-40) units/L ALT 68 H (7-56) units/L Alkaline Phosphatase 419 H (35-129) units/L Total Protein 5.9 L (6.3-8.2) g/dL Albumin 2.0 L (3.9-5) g/dL - Imaging and Cardiology EKG: image reviewed Echo: report reviewed (EF 55-60%, mild LVH, impaired relaxation, trace TR, trivial pericardial effusion. ) Cardiac cath: report reviewed (PCI of LAD (07/2014)) - Telemetry EKG Rhythm: Sinus Rhythm - EKG Sinus rhythms and dysrhythmias: sinus rhythm
--- NOTE | 2017-04-17 13:48 | Cat Scan Report ---
CT BIOPSY LIVER HISTORY: Abnormal liver function, abnormal liver CT. DESCRIPTION OF PROCEDURE: Informed consent was obtained. Sterile technique was utilized. 1% lidocaine for skin anesthesia. Anxiolysis was accomplished with 2 mg of Versed. Using CT guidance, a 17-gauge introducer needle was advanced into the right hepatic lobe. A single 18-gauge core biopsy was obtained. Followup scan demonstrates no evidence for significant hemorrhage. The patient tolerated the procedure without difficulty. IMPRESSION: Successful CT guided liver biopsy.
[2017-04-17] MEDS: NORCO 5/325 PO PRN (15:43)
[2017-04-17] MEDS: ISOPTO TEARS 0.5% OU PRN (21:35)
[2017-04-17] MEDS ORDERED: ROXICODONE PO ONE (23:31)
[2017-04-17] MEDS: LOVENOX SUB-Q SCH (23:32)
[2017-04-18 05:59] LABS: Hematocrit 26.8 % (30.3-42.9); Hemoglobin 8.6 gm/dl (10.1-14.3); Mean Corpuscular HGB Conc 32 % (30-34); Mean Corpuscular Hemoglobin 34 pg (28-32); Mean Corpuscular Volume 106 fl (79-97); Platelet Count 239 K/mm3 (140-440); Red Blood Count 2.54 M/mm3 (3.65-5.03); Red Cell Distribution Width 16.9 % (13.2-15.2); White Blood Count 6.1 K/mm3 (4.5-11.0)
[2017-04-18 06:17] LABS: Albumin 2.3 g/dL (3.9-5); Albumin/Globulin Ratio 0.6 %; Bilirubin,Direct 5.4 mg/dL (0-0.2); Bilirubin,Indirect 1.9 mg/dL; Bilirubin,Total 7.3 mg/dL (0.1-1.2); Magnesium 1.5 mg/dL (1.7-2.3); Total Protein 6.1 g/dL (6.3-8.2)
[2017-04-18 06:59] LABS: Basophils % (Manual) 0 % (0.0-1.8); Blastocytes % (Manual) 0 %
[2017-04-18 07:01] LABS: Anisocytosis 1+; Stomatocytes 2+; Target Cells Rare
[2017-04-18 07:02] LABS: Diff Status Complete
[2017-04-18] MEDS: NOVOLOG SUB-Q SCH ×4 (09:18→23:29)
[2017-04-18] MEDS: THERAGRAN-M Tab PO SCH (09:19)
[2017-04-18] MEDS: PROTONIX PO SCH (09:19)
[2017-04-18] MEDS ORDERED: MAGNESIUM SULFATE 3 GM in NACL 0.9% 100 ML IV ONE (09:55)
[2017-04-18] MEDS ORDERED: SODIUM PHOSPHATE 45 MMOL in NACL 0.9% 500 ML 500 ML IV ONE (09:55)
--- NOTE | 2017-04-18 10:05 | Progress Note ---
Assessment and Plan Assessment and plan: 69-year-old male past medical history of hypertension, coronary artery disease, diabetes, hyperlipidemia, GERD, major depression. Presents to the hospital with dizziness upon standing. Complaining of multiple fall over a period of 2 weeks. She is markedly jaundiced, complaining of itching. Her labs showed transaminitis, elevated alkaline phosphatase and elevated bilirubin CT of the C-spine, image reviewed, no acute findings CTH, image reviewed, no acute findings US- abdomen, image reviewed, no acute findings Hyperbilirubinemia/Transaminitis (highly suspicious of malignancy) * US abdomen shows cholethiasis without obstruction or inflammation * direct bilirubin elevated, CT abdomen and pelvis shows liver abnormality, GI consult appreciated * need to exclude malignancy, sp liver bx, Hepatitis serology negative so far, Autoimmune serology pending * Will need EGD and C scope as an outpatient Dizziness and giddiness, dehydration * She is on multiple sedating medications. Including OxyContin, amitriptyline, gabapentin and tizanidine, we'll try to minimize these medications for now * orthostatic vital signs showed a drop in systolic pressure upon standing and echocardiogram shows preserved EF with diastolic dysfunction, CXR shows no acute abnormalities Hyponatremia/dehydration/hypokalemia * Continue IV fluids, continue to replete potassium as needed Hypotension * All blood pressure medications have been discontinued Hypoglycemia in a patient with history of Insulin-dependent type 2 Diabetes * Discontinue long-acting insulin, continue sliding scale insulin only Hypokalemia * Repleted and corrected Hypomagnesemia * Repleted and corrected Hypophosphatemia * replete History of CAD * Continue beta bridger, aspirin * Cardiology input appreciated, PRASUGREL has been discontinued, as it has been greater than 1 year since drug-eluting stent Debility/Frequent falls PT consult, and plan for SNIF placement Severe malnutrition * Dietitian consult * improve oral intake DVT prophylaxis with Lovenox This patient is planned for SNIF placement, she will need to follow up in gastroenterology clinic for her liver biopsy results History Interval history: continues to c/o generalized weakness, and exhaustion , still jaudiced, with yellow skin and eyes, c/o of Lower back pain, dull 4/10 to 10/10 , exacerbated by activity, relieved by pain meds Hospitalist Physical - Physical exam Narrative exam: General.: Appears chronically ill, HEENT: Moist mucous membranes, extraocular muscles intact, no lymphadenopathy, icteric sclera Neck: supple Cardiac: S1-S2 heard Lungs: clear to auscultation bilaterally Abdomen: soft , nontender, nondistended, bowel sounds positive Extremities: no edema clubbing or cyanosis Skin: no rash or lesions, jaundice, multiple bruises, wounds and erosions of multiple age Neurologic: no gross focal deficits, generalized weaknses Psych: appropriate behavior, appropriate mood, corporative, judgment intact - Constitutional Vitals: Temp Pulse Resp BP Pulse Ox 98.9 F 72 18 94/54 100 04/18/17 08:05 04/18/17 09:22 04/18/17 08:05 04/18/17 08:05 04/18/17 04:16 General appearance: Present: no acute distress Results - Labs CBC & Chem 7: 04/18/17 05:18 04/18/17 10:06 Labs: Laboratory Last Values WBC 6.1 K/mm3 (4.5-11.0) 04/18/17 05:18 RBC 2.54 M/mm3 (3.65-5.03) L 04/18/17 05:18 Hgb 8.6 gm/dl (10.1-14.3) L 04/18/17 05:18 Hct 26.8 % (30.3-42.9) L 04/18/17 05:18 MCV 106 fl (79-97) H 04/18/17 05:18 MCH 34 pg (28-32) H 04/18/17 05:18 MCHC 32 % (30-34) 04/18/17 05:18 RDW 16.9 % (13.2-15.2) H 04/18/17 05:18 Plt Count 239 K/mm3 (140-440) 04/18/17 05:18 Lymph % (Auto) Business Law Teacher 04/14/17 23:35 [place] % (Auto) Business Law Teacher 04/18/17 05:18 Add Manual Diff Complete 04/18/17 05:18 Total Counted 100 04/18/17 05:18 Seg Neutrophils % Business Law Teacher 04/16/17 05:28 Seg Neuts % (Manual) 59.0 % (40.0-70.0) 04/18/17 05:18 Band Neutrophils % 3.0 % 04/18/17 05:18 Lymphocytes % (Manual) 18.0 % (13.4-35.0) 04/18/17 05:18 Reactive Lymphs % (Man) 0 % 04/18/17 05:18 Monocytes % (Manual) 11.0 % (0.0-7.3) H 04/18/17 05:18 Eosinophils % (Manual) 4.0 % (0.0-4.3) 04/18/17 05:18 Basophils % (Manual) 0 % (0.0-1.8) 04/18/17 05:18 Metamyelocytes % 5.0 % 04/18/17 05:18 Myelocytes % 0 % 04/18/17 05:18 Promyelocytes % 0 % 04/18/17 05:18 Blast Cells % 0 % 04/18/17 05:18 Nucleated RBC % Not Reportable 04/18/17 05:18 Seg Neutrophils # Man 3.6 K/mm3 (1.8-7.7) 04/18/17 05:18 Band Neutrophils # 0.2 K/mm3 04/18/17 05:18 Lymphocytes # (Manual) 1.1 K/mm3 (1.2-5.4) L 04/18/17 05:18 Abs React Lymphs (Man) 0.0 K/mm3 04/18/17 05:18 Monocytes # (Manual) 0.7 K/mm3 (0.0-0.8) 04/18/17 05:18 Eosinophils # (Manual) 0.2 K/mm3 (0.0-0.4) 04/18/17 05:18 Basophils # (Manual) 0.0 K/mm3 (0.0-0.1) 04/18/17 05:18 Metamyelocytes # 0.3 K/mm3 04/18/17 05:18 Myelocytes # 0.0 K/mm3 04/18/17 05:18 Promyelocytes # 0.0 K/mm3 04/18/17 05:18 Blast Cells # 0.0 K/mm3 04/18/17 05:18 WBC Morphology Not Reportable 04/18/17 05:18 Hypersegmented Neuts Not Reportable 04/18/17 05:18 Hyposegmented Neuts Not Reportable 04/18/17 05:18 Hypogranular Neuts Not Reportable 04/18/17 05:18 Smudge Cells Not Reportable 04/18/17 05:18 Toxic Granulation Not Reportable 04/18/17 05:18 Toxic Vacuolation Not Reportable 04/18/17 05:18 Dohle Bodies Not Reportable 04/18/17 05:18 Pelger-Huet Anomaly Not Reportable 04/18/17 05:18 Kim Rods Not Reportable 04/18/17 05:18 Platelet Estimate Appears normal 04/18/17 05:18 Clumped Platelets Not Reportable 04/18/17 05:18 Plt Clumps, EDTA Not Reportable 04/18/17 05:18 Large Platelets Not Reportable 04/18/17 05:18 Giant Platelets Not Reportable 04/18/17 05:18 Platelet Satelliting Not Reportable 04/18/17 05:18 Plt Morphology Comment Not Reportable 04/18/17 05:18 RBC Morphology Not Reportable 04/18/17 05:18 Dimorphic RBCs Not Reportable 04/18/17 05:18 Polychromasia Not Reportable 04/18/17 05:18 Hypochromasia Not Reportable 04/18/17 05:18 Poikilocytosis Not Reportable 04/18/17 05:18 Anisocytosis 1+ 04/18/17 05:18 Microcytosis Not Reportable 04/18/17 05:18 Macrocytosis Not Reportable 04/18/17 05:18 Spherocytes Not Reportable 04/18/17 05:18 Pappenheimer Bodies Not Reportable 04/18/17 05:18 Sickle Cells Not Reportable 04/18/17 05:18 Target Cells Rare 04/18/17 05:18 Tear Drop Cells Not Reportable 04/18/17 05:18 Ovalocytes Not Reportable 04/18/17 05:18 Stomatocytes 2+ 04/18/17 05:18 Helmet Cells Not Reportable 04/18/17 05:18 Arce-Silvis Bodies Not Reportable 04/18/17 05:18 [place] Rings Not Reportable 04/18/17 05:18 Mehran Cells Not Reportable 04/18/17 05:18 Bite Cells Not Reportable 04/18/17 05:18 Crenated Cell Not Reportable 04/18/17 05:18 Elliptocytes Not Reportable 04/18/17 05:18 Acanthocytes (Spur) Not Reportable 04/18/17 05:18 Rouleaux Not Reportable 04/18/17 05:18 Hemoglobin C Crystals Not Reportable 04/18/17 05:18 Schistocytes Not Reportable 04/18/17 05:18 Malaria parasites Not Reportable 04/18/17 05:18 Vladislav Bodies Not Reportable 04/18/17 05:18 Hem Pathologist Commnt No 04/18/17 05:18 PT 16.4 Sec. (12.2-14.9) H 04/15/17 03:03 INR 1.33 (0.87-1.13) H 04/15/17 03:03 APTT 38.8 Sec. (24.2-36.6) H 04/15/17 03:03 D-Dimer 177.26 ng/mlDDU (0-234) 04/15/17 03:03 VBG pH 7.423 (7.320-7.420) H 04/14/17 23:35 Sodium 136 mmol/L (137-145) L D 04/17/17 04:13 Potassium 5.1 mmol/L (3.6-5.0) H 04/17/17 04:13 Chloride 104.3 mmol/L (98-107) 04/17/17 04:13 Carbon Dioxide 18 mmol/L (22-30) L 04/17/17 04:13 Anion Gap 19 mmol/L 04/17/17 04:13 BUN 4 mg/dL (7-17) L 04/17/17 04:13 Creatinine 0.3 mg/dL (0.7-1.2) L 04/17/17 04:13 Estimated GFR > 60 ml/min 04/17/17 04:13 BUN/Creatinine Ratio 13.33 % 04/17/17 04:13 Glucose 40 mg/dL (65-100) L 04/17/17 04:13 POC Glucose 208 (70-105) H 04/18/17 07:03 Calcium 6.3 mg/dL (8.4-10.2) L 04/17/17 04:13 Phosphorus 2.00 mg/dL (2.5-4.5) L 04/18/17 05:18 Magnesium 1.50 mg/dL (1.7-2.3) L 04/18/17 05:18 Total Bilirubin 7.30 mg/dL (0.1-1.2) H 04/18/17 05:18 Direct Bilirubin 5.4 mg/dL (0-0.2) H 04/18/17 05:18 Indirect Bilirubin 1.9 mg/dL 04/18/17 05:18 AST 125 units/L (5-40) H 04/18/17 05:18 ALT 62 units/L (7-56) H 04/18/17 05:18 Alkaline Phosphatase 420 units/L (35-129) H 04/18/17 05:18 Total Creatine Kinase 49 units/L (30-135) 04/15/17 05:59 CK-MB (CK-2) < 1.0 ng/mL (0.0-4.0) 04/15/17 05:59 CK-MB (CK-2) Rel Index 2.0 (0-4) 04/15/17 05:59 Troponin T < 0.010 ng/mL (0.00-0.029) 04/15/17 12:13 Total Protein 6.1 g/dL (6.3-8.2) L 04/18/17 05:18 Albumin 2.3 g/dL (3.9-5) L 04/18/17 05:18 Albumin/Globulin Ratio 0.6 % 04/18/17 05:18 TSH 1.660 mlU/mL (0.270-4.200) 04/14/17 23:35 Free T4 0.86 ng/dL (0.76-1.46) 04/14/17 23:35 Urine Color Kimberly (Yellow) 04/15/17 04:53 Urine Turbidity Clear (Clear) 04/15/17 04:53 Urine pH 6.0 (5.0-7.0) 04/15/17 04:53 Ur Specific [place] 1.003 (1.003-1.030) 04/15/17 04:53 Urine Protein <15 mg/dl mg/dL (Negative) 04/15/17 04:53 Urine Glucose (UA) Neg mg/dL (Negative) 04/15/17 04:53 Urine Ketones Neg mg/dL (Negative) 04/15/17 04:53 Urine Blood Neg (Negative) 04/15/17 04:53 Urine Nitrite Neg (Negative) 04/15/17 04:53 Urine Bilirubin Sm (Negative) 04/15/17 04:53 Urine Ictotest Positive (Negative) 04/15/17 04:53 Urine Urobilinogen 2.0 mg/dL (<2.0) 04/15/17 04:53 Ur Leukocyte Esterase Neg (Negative) 04/15/17 04:53 Urine WBC (Auto) 2.0 /HPF (0.0-6.0) 04/15/17 04:53 Urine RBC (Auto) 3.0 /HPF (0.0-6.0) 04/15/17 04:53 U Epithel Cells (Auto) 1.0 /HPF (0-13.0) 04/15/17 04:53 Urine Bacteria (Auto) 1+ /HPF (Negative) 04/15/17 04:53 Hep Bs Antigen Non-reactive (Negative) 04/15/17 17:51 Hepatitis C Antibody Non-reactive (NonReactive) 04/15/17 17:51
[2017-04-18] MEDS: K-PHOS NEUTRAL PO SCH ×4 (10:55→22:16)
[2017-04-18 10:58] LABS: Anion Gap 17 mmol/L; Blood Urea Nitrogen 3 mg/dL (7-17); Calcium 6.5 mg/dL (8.4-10.2); Carbon Dioxide 22 mmol/L (22-30); Chloride 100.5 mmol/L (98-107); Glucose 233 mg/dL (65-100); Potassium 4.3 mmol/L (3.6-5.0); Sodium 135 mmol/L (137-145)
[2017-04-18] MEDS ORDERED: CALCIUM GLUCONATE 2,000 MG in NACL 0.9% 100 ML IV ONE (13:13)
[2017-04-18] MEDS: TYLENOL PO PRN (15:24)
--- NOTE | 2017-04-18 16:27 | Gastroenterology Progress Note ---
Assessment and Plan - Patient Problems (1) Cholelithiasis Current Visit: Yes Status: Acute Qualifiers: Cholelithiasis location: C Cholecystitis presence: C Cholangitis presence : C Cholecystitis acuity: C Cholangitis acuity: C Biliary obstruction: B (2) Elevated LFTs Current Visit: Yes Status: Acute Plan to address problem: S/p Liver biopsy. Await path. Clinically stable. Rule out infiltrative disease, eg neoplasia, amyloid, sarcoidosis. Rule out ETOH although the patient is adamant that she is not an alcoholic. (3) Post PTCA Current Visit: No Status: Acute (4) Diabetes 1.5, managed as type 1 Current Visit: No Status: Chronic (5) Hyperlipemia Current Visit: No Status: Chronic Qualifiers: Hyperlipidemia type: H (6) Hypertension Current Visit: No Status: Chronic Qualifiers: Hypertension type: H Subjective Date of service: 04/18/17 Principal diagnosis: Liver Disease Interval history: The patient reports no discomfort. Objective - Constitutional Vitals: Temp Pulse Resp BP Pulse Ox 98.3 F 83 18 121/74 100 04/18/17 16:00 04/18/17 16:00 04/18/17 16:00 04/18/17 16:00 04/18/17 16:00 General appearance: no acute distress - EENT Eyes: PERRL, EOM intact, scleral icterus ENT: hearing intact - Neck Neck: supple, normal ROM - Respiratory Respiratory effort: normal Respiratory: bilateral: CTA - Cardiovascular Rhythm: regular - Gastrointestinal General gastrointestinal: Present: soft, non-tender, non-distended, normal bowel sounds - Neurologic Neurological: alert and oriented x3 - Labs CBC & Chem 7: 04/18/17 05:18 04/18/17 10:06 Labs: Laboratory Results - last 24 hr 04/15/17 04/17/17 04/17/17 17:51 17:01 22:42 WBC RBC Hgb Hct MCV MCH MCHC RDW Plt Count [place] % (Auto) Add Manual Diff Total Counted Seg Neuts % (Manual) Band Neutrophils % Lymphocytes % (Manual) Reactive Lymphs % (Man) Monocytes % (Manual) Eosinophils % (Manual) Basophils % (Manual) Metamyelocytes % Myelocytes % Promyelocytes % Blast Cells % Nucleated RBC % Seg Neutrophils # Man Band Neutrophils # Lymphocytes # (Manual) Abs React Lymphs (Man) Monocytes # (Manual) Eosinophils # (Manual) Basophils # (Manual) Metamyelocytes # Myelocytes # Promyelocytes # Blast Cells # WBC Morphology Hypersegmented Neuts Hyposegmented Neuts Hypogranular Neuts Smudge Cells Toxic Granulation Toxic Vacuolation Dohle Bodies Pelger-Huet Anomaly Kim Rods Platelet Estimate Clumped Platelets Plt Clumps, EDTA Large Platelets Giant Platelets Platelet Satelliting Plt Morphology Comment RBC Morphology Dimorphic RBCs Polychromasia Hypochromasia Poikilocytosis Anisocytosis Microcytosis Macrocytosis Spherocytes Pappenheimer Bodies Sickle Cells Target Cells Tear Drop Cells Ovalocytes Stomatocytes Helmet Cells [place] Bodies [place] Rings Mehran Cells Bite Cells Crenated Cell Elliptocytes Acanthocytes (Spur) Rouleaux Hemoglobin C Crystals Schistocytes Malaria parasites Vladislav Bodies Hem Pathologist Commnt Sodium Potassium Chloride Carbon Dioxide Anion Gap BUN Creatinine Estimated GFR BUN/Creatinine Ratio Glucose POC Glucose 300 H 133 H Calcium Phosphorus Magnesium Total Bilirubin Direct Bilirubin Indirect Bilirubin AST ALT Alkaline Phosphatase Total Protein Albumin Albumin/Globulin Ratio Hep B Core Total Ab Nonreactive 04/18/17 04/18/17 04/18/17 05:18 05:18 07:03 WBC 6.1 RBC 2.54 L Hgb 8.6 L Hct 26.8 L MCV 106 H MCH 34 H MCHC 32 RDW 16.9 H Plt Count 239 [place] % (Auto) Political Science Chair Add Manual Diff Complete Total Counted 100 Seg Neuts % (Manual) 59.0 Band Neutrophils % 3.0 Lymphocytes % (Manual) 18.0 Reactive Lymphs % (Man) 0 Monocytes % (Manual) 11.0 H Eosinophils % (Manual) 4.0 Basophils % (Manual) 0 Metamyelocytes % 5.0 Myelocytes % 0 Promyelocytes % 0 Blast Cells % 0 Nucleated RBC % Not Reportable Seg Neutrophils # Man 3.6 Band Neutrophils # 0.2 Lymphocytes # (Manual) 1.1 L Abs React Lymphs (Man) 0.0 Monocytes # (Manual) 0.7 Eosinophils # (Manual) 0.2 Basophils # (Manual) 0.0 Metamyelocytes # 0.3 Myelocytes # 0.0 Promyelocytes # 0.0 Blast Cells # 0.0 WBC Morphology Not Reportable Hypersegmented Neuts Not Reportable Hyposegmented Neuts Not Reportable Hypogranular Neuts Not Reportable Smudge Cells Not Reportable Toxic Granulation Not Reportable Toxic Vacuolation Not Reportable Dohle Bodies Not Reportable Pelger-Huet Anomaly Not Reportable Kim Rods Not Reportable Platelet Estimate Appears normal Clumped Platelets Not Reportable Plt Clumps, EDTA Not Reportable Large Platelets Not Reportable Giant Platelets Not Reportable Platelet Satelliting Not Reportable Plt Morphology Comment Not Reportable RBC Morphology Not Reportable Dimorphic RBCs Not Reportable Polychromasia Not Reportable Hypochromasia Not Reportable Poikilocytosis Not Reportable Anisocytosis 1+ Microcytosis Not Reportable Macrocytosis Not Reportable Spherocytes Not Reportable Pappenheimer Bodies Not Reportable Sickle Cells Not Reportable Target Cells Rare Tear Drop Cells Not Reportable Ovalocytes Not Reportable Stomatocytes 2+ Helmet Cells Not Reportable [place] Bodies Not Reportable [place] Rings Not Reportable [place] Cells Not Reportable Bite Cells Not Reportable Crenated Cell Not Reportable Elliptocytes Not Reportable Acanthocytes (Spur) Not Reportable Rouleaux Not Reportable Hemoglobin C Crystals Not Reportable Schistocytes Not Reportable Malaria parasites Not Reportable Vladislav Bodies Not Reportable Hem Pathologist Commnt No Sodium Potassium Chloride Carbon Dioxide Anion Gap BUN Creatinine Estimated GFR BUN/Creatinine Ratio Glucose POC Glucose 208 H Calcium Phosphorus 2.00 L Magnesium 1.50 L Total Bilirubin 7.30 H Direct Bilirubin 5.4 H Indirect Bilirubin 1.9 AST 125 H ALT 62 H Alkaline Phosphatase 420 H Total Protein 6.1 L Albumin 2.3 L Albumin/Globulin Ratio 0.6 Hep B Core Total Ab 04/18/17 04/18/17 10:06 11:56 WBC RBC Hgb Hct MCV MCH MCHC RDW Plt Count [place] % (Auto) Add Manual Diff Total Counted Seg Neuts % (Manual) Band Neutrophils % Lymphocytes % (Manual) Reactive Lymphs % (Man) Monocytes % (Manual) Eosinophils % (Manual) Basophils % (Manual) Metamyelocytes % Myelocytes % Promyelocytes % Blast Cells % Nucleated RBC % Seg Neutrophils # Man Band Neutrophils # Lymphocytes # (Manual) Abs React Lymphs (Man) Monocytes # (Manual) Eosinophils # (Manual) Basophils # (Manual) Metamyelocytes # Myelocytes # Promyelocytes # Blast Cells # WBC Morphology Hypersegmented Neuts Hyposegmented Neuts Hypogranular Neuts Smudge Cells Toxic Granulation Toxic Vacuolation Dohle Bodies Pelger-Huet Anomaly Kim Rods Platelet Estimate Clumped Platelets Plt Clumps, EDTA Large Platelets Giant Platelets Platelet Satelliting Plt Morphology Comment RBC Morphology Dimorphic RBCs Polychromasia Hypochromasia Poikilocytosis Anisocytosis Microcytosis Macrocytosis Spherocytes Pappenheimer Bodies Sickle Cells Target Cells Tear Drop Cells Ovalocytes Stomatocytes Helmet Cells [place] Bodies [place] Rings [place] Cells Bite Cells Crenated Cell Elliptocytes Acanthocytes (Spur) Rouleaux Hemoglobin C Crystals Schistocytes Malaria parasites Vladislav Bodies Hem Pathologist Commnt Sodium 135 L Potassium 4.3 Chloride 100.5 Carbon Dioxide 22 Anion Gap 17 BUN 3 L Creatinine 0.3 L Estimated GFR > 60 BUN/Creatinine Ratio 10.00 Glucose 233 H POC Glucose 218 H Calcium 6.5 L Phosphorus Magnesium Total Bilirubin Direct Bilirubin Indirect Bilirubin AST ALT Alkaline Phosphatase Total Protein Albumin Albumin/Globulin Ratio Hep B Core Total Ab
[2017-04-18] MEDS: LOVENOX SUB-Q SCH (23:26)
--- NOTE | 2017-04-19 07:48 | Progress Note ---
Assessment and Plan Assessment and plan: 69-year-old male past medical history of hypertension, coronary artery disease, diabetes, hyperlipidemia, GERD, major depression. Presents to the hospital with dizziness upon standing. Complaining of multiple fall over a period of 2 weeks. She is markedly jaundiced, complaining of itching. Her labs showed transaminitis, elevated alkaline phosphatase and elevated bilirubin CT of the C-spine, image reviewed, no acute findings CTH, image reviewed, no acute findings US- abdomen, image reviewed, no acute findings Hyperbilirubinemia/Transaminitis (highly suspicious of malignancy) * US abdomen shows cholethiasis without obstruction or inflammation * direct bilirubin elevated, CT abdomen and pelvis shows liver abnormality, GI consult appreciated * need to exclude malignancy, sp liver bx, Hepatitis serology negative so far, Autoimmune serology pending * Will need EGD and C scope as an outpatient Dizziness and giddiness, dehydration * She is on multiple sedating medications. Including OxyContin, amitriptyline, gabapentin and tizanidine, we'll try to minimize these medications for now * orthostatic vital signs showed a drop in systolic pressure upon standing and echocardiogram shows preserved EF with diastolic dysfunction, CXR shows no acute abnormalities Hyponatremia/dehydration/hypokalemia * Continue IV fluids, continue to replete potassium as needed Hypotension * All blood pressure medications have been discontinued Hypoglycemia in a patient with history of Insulin-dependent type 2 Diabetes * Discontinue long-acting insulin, continue sliding scale insulin only Hypokalemia * Repleted and corrected Hypomagnesemia * continue to replete IV Hypophosphatemia * replete IV Hypocalcemia replete IV History of CAD * Continue beta bridger, aspirin * Cardiology input appreciated, PRASUGREL has been discontinued, as it has been greater than 1 year since drug-eluting stent Debility/Frequent falls PT consult, and plan for SNIF placement Severe malnutrition * Dietitian consult * improve oral intake DVT prophylaxis with Lovenox This patient is planned for SNIF placement, she will need to follow up in gastroenterology clinic for her liver biopsy results History Interval history: continues to c/o generalized weakness, and exhaustion , still jaudiced, with yellow skin and eyes, c/o of Lower back pain, dull 4/10 to 10/10 , exacerbated by activity, relieved by pain meds Hospitalist Physical - Physical exam Narrative exam: General.: Appears chronically ill, HEENT: Moist mucous membranes, extraocular muscles intact, no lymphadenopathy, icteric sclera Neck: supple Cardiac: S1-S2 heard Lungs: clear to auscultation bilaterally Abdomen: soft , nontender, nondistended, bowel sounds positive Extremities: no edema clubbing or cyanosis Skin: no rash or lesions, jaundice, multiple bruises, wounds and erosions of multiple age Neurologic: no gross focal deficits, generalized weaknses Psych: appropriate behavior, appropriate mood, corporative, judgment intact - Constitutional Vitals: Temp Pulse Resp BP Pulse Ox 99.0 F 85 18 110/67 100 04/19/17 07:40 04/19/17 07:40 04/19/17 07:40 04/19/17 07:40 04/19/17 07:40 General appearance: Present: no acute distress Results - Labs CBC & Chem 7: 04/18/17 05:18 04/18/17 10:06 Labs: Laboratory Last Values WBC 6.1 K/mm3 (4.5-11.0) 04/18/17 05:18 RBC 2.54 M/mm3 (3.65-5.03) L 04/18/17 05:18 Hgb 8.6 gm/dl (10.1-14.3) L 04/18/17 05:18 Hct 26.8 % (30.3-42.9) L 04/18/17 05:18 MCV 106 fl (79-97) H 04/18/17 05:18 MCH 34 pg (28-32) H 04/18/17 05:18 MCHC 32 % (30-34) 04/18/17 05:18 RDW 16.9 % (13.2-15.2) H 04/18/17 05:18 Plt Count 239 K/mm3 (140-440) 04/18/17 05:18 Lymph % (Auto) [facility] [employer] [facility] 04/14/17 23:35 [place] % (Auto) [facility] 04/18/17 05:18 Add Manual Diff Complete 04/18/17 05:18 Total Counted 100 04/18/17 05:18 Seg Neutrophils % [facility] 04/16/17 05:28 Seg Neuts % (Manual) 59.0 % (40.0-70.0) 04/18/17 05:18 Band Neutrophils % 3.0 % 04/18/17 05:18 Lymphocytes % (Manual) 18.0 % (13.4-35.0) 04/18/17 05:18 Reactive Lymphs % (Man) 0 % 04/18/17 05:18 Monocytes % (Manual) 11.0 % (0.0-7.3) H 04/18/17 05:18 Eosinophils % (Manual) 4.0 % (0.0-4.3) 04/18/17 05:18 Basophils % (Manual) 0 % (0.0-1.8) 04/18/17 05:18 Metamyelocytes % 5.0 % 04/18/17 05:18 Myelocytes % 0 % 04/18/17 05:18 Promyelocytes % 0 % 04/18/17 05:18 Blast Cells % 0 % 04/18/17 05:18 Nucleated RBC % Not Reportable 04/18/17 05:18 Seg Neutrophils # Man 3.6 K/mm3 (1.8-7.7) 04/18/17 05:18 Band Neutrophils # 0.2 K/mm3 04/18/17 05:18 Lymphocytes # (Manual) 1.1 K/mm3 (1.2-5.4) L 04/18/17 05:18 Abs React Lymphs (Man) 0.0 K/mm3 04/18/17 05:18 Monocytes # (Manual) 0.7 K/mm3 (0.0-0.8) 04/18/17 05:18 Eosinophils # (Manual) 0.2 K/mm3 (0.0-0.4) 04/18/17 05:18 Basophils # (Manual) 0.0 K/mm3 (0.0-0.1) 04/18/17 05:18 Metamyelocytes # 0.3 K/mm3 04/18/17 05:18 Myelocytes # 0.0 K/mm3 04/18/17 05:18 Promyelocytes # 0.0 K/mm3 04/18/17 05:18 Blast Cells # 0.0 K/mm3 04/18/17 05:18 WBC Morphology Not Reportable 04/18/17 05:18 Hypersegmented Neuts Not Reportable 04/18/17 05:18 Hyposegmented Neuts Not Reportable 04/18/17 05:18 Hypogranular Neuts Not Reportable 04/18/17 05:18 Smudge Cells Not Reportable 04/18/17 05:18 Toxic Granulation Not Reportable 04/18/17 05:18 Toxic Vacuolation Not Reportable 04/18/17 05:18 Dohle Bodies Not Reportable 04/18/17 05:18 Pelger-Huet Anomaly Not Reportable 04/18/17 05:18 Kim Rods Not Reportable 04/18/17 05:18 Platelet Estimate Appears normal 04/18/17 05:18 Clumped Platelets Not Reportable 04/18/17 05:18 Plt Clumps, EDTA Not Reportable 04/18/17 05:18 Large Platelets Not Reportable 04/18/17 05:18 Giant Platelets Not Reportable 04/18/17 05:18 Platelet Satelliting Not Reportable 04/18/17 05:18 Plt Morphology Comment Not Reportable 04/18/17 05:18 RBC Morphology Not Reportable 04/18/17 05:18 Dimorphic RBCs Not Reportable 04/18/17 05:18 Polychromasia Not Reportable 04/18/17 05:18 Hypochromasia Not Reportable 04/18/17 05:18 Poikilocytosis Not Reportable 04/18/17 05:18 Anisocytosis 1+ 04/18/17 05:18 Microcytosis Not Reportable 04/18/17 05:18 Macrocytosis Not Reportable 04/18/17 05:18 Spherocytes Not Reportable 04/18/17 05:18 Pappenheimer Bodies Not Reportable 04/18/17 05:18 Sickle Cells Not Reportable 04/18/17 05:18 Target Cells Rare 04/18/17 05:18 Tear Drop Cells Not Reportable 04/18/17 05:18 Ovalocytes Not Reportable 04/18/17 05:18 Stomatocytes 2+ 04/18/17 05:18 Helmet Cells Not Reportable 04/18/17 05:18 [place] Bodies Not Reportable 04/18/17 05:18 [place] Rings Not Reportable 04/18/17 05:18 [place] Cells Not Reportable 04/18/17 05:18 Bite Cells Not Reportable 04/18/17 05:18 Crenated Cell Not Reportable 04/18/17 05:18 Elliptocytes Not Reportable 04/18/17 05:18 Acanthocytes (Spur) Not Reportable 04/18/17 05:18 Rouleaux Not Reportable 04/18/17 05:18 Hemoglobin C Crystals Not Reportable 04/18/17 05:18 Schistocytes Not Reportable 04/18/17 05:18 Malaria parasites Not Reportable 04/18/17 05:18 Vladislav Bodies Not Reportable 04/18/17 05:18 Hem Pathologist Commnt No 04/18/17 05:18 PT 16.4 Sec. (12.2-14.9) H 04/15/17 03:03 INR 1.33 (0.87-1.13) H 04/15/17 03:03 APTT 38.8 Sec. (24.2-36.6) H 04/15/17 03:03 D-Dimer 177.26 ng/mlDDU (0-234) 04/15/17 03:03 VBG pH 7.423 (7.320-7.420) H 04/14/17 23:35 Sodium 135 mmol/L (137-145) L 04/18/17 10:06 Potassium 4.3 mmol/L (3.6-5.0) 04/18/17 10:06 Chloride 100.5 mmol/L (98-107) 04/18/17 10:06 Carbon Dioxide 22 mmol/L (22-30) 04/18/17 10:06 Anion Gap 17 mmol/L 04/18/17 10:06 BUN 3 mg/dL (7-17) L 04/18/17 10:06 Creatinine 0.3 mg/dL (0.7-1.2) L 04/18/17 10:06 Estimated GFR > 60 ml/min 04/18/17 10:06 BUN/Creatinine Ratio 10.00 % 04/18/17 10:06 Glucose 233 mg/dL (65-100) H 04/18/17 10:06 POC Glucose 190 (70-105) H 04/19/17 06:15 Calcium 6.5 mg/dL (8.4-10.2) L 04/18/17 10:06 Phosphorus 2.00 mg/dL (2.5-4.5) L 04/18/17 05:18 Magnesium 1.50 mg/dL (1.7-2.3) L 04/18/17 05:18 Total Bilirubin 7.30 mg/dL (0.1-1.2) H 04/18/17 05:18 Direct Bilirubin 5.4 mg/dL (0-0.2) H 04/18/17 05:18 Indirect Bilirubin 1.9 mg/dL 04/18/17 05:18 AST 125 units/L (5-40) H 04/18/17 05:18 ALT 62 units/L (7-56) H 04/18/17 05:18 Alkaline Phosphatase 420 units/L (35-129) H 04/18/17 05:18 Total Creatine Kinase 49 units/L (30-135) 04/15/17 05:59 CK-MB (CK-2) < 1.0 ng/mL (0.0-4.0) 04/15/17 05:59 CK-MB (CK-2) Rel Index 2.0 (0-4) 04/15/17 05:59 Troponin T < 0.010 ng/mL (0.00-0.029) 04/15/17 12:13 Total Protein 6.1 g/dL (6.3-8.2) L 04/18/17 05:18 Albumin 2.3 g/dL (3.9-5) L 04/18/17 05:18 Albumin/Globulin Ratio 0.6 % 04/18/17 05:18 TSH 1.660 mlU/mL (0.270-4.200) 04/14/17 23:35 Free T4 0.86 ng/dL (0.76-1.46) 04/14/17 23:35 Urine Color Kimberly (Yellow) 04/15/17 04:53 Urine Turbidity Clear (Clear) 04/15/17 04:53 Urine pH 6.0 (5.0-7.0) 04/15/17 04:53 Ur Specific Center [place] 1.003 (1.003-1.030) 04/15/17 04:53 Urine Protein <15 mg/dl mg/dL (Negative) 04/15/17 04:53 Urine Glucose (UA) Neg mg/dL (Negative) 04/15/17 04:53 Urine Ketones Neg mg/dL (Negative) 04/15/17 04:53 Urine Blood Neg (Negative) 04/15/17 04:53 Urine Nitrite Neg (Negative) 04/15/17 04:53 Urine Bilirubin Sm (Negative) 04/15/17 04:53 Urine Ictotest Positive (Negative) 04/15/17 04:53 Urine Urobilinogen 2.0 mg/dL (<2.0) 04/15/17 04:53 Ur Leukocyte Esterase Neg (Negative) 04/15/17 04:53 Urine WBC (Auto) 2.0 /HPF (0.0-6.0) 04/15/17 04:53 Urine RBC (Auto) 3.0 /HPF (0.0-6.0) 04/15/17 04:53 U Epithel Cells (Auto) 1.0 /HPF (0-13.0) 04/15/17 04:53 Urine Bacteria (Auto) 1+ /HPF (Negative) 04/15/17 04:53 Mitochondria M2 Ab <=20.0 U (<=20.0) 04/15/17 17:51 Actin IgG Antibody <20 U (<20) 04/15/17 17:51 Hep Bs Antigen Non-reactive (Negative) 04/15/17 17:51 Hep B Core Total Ab Nonreactive (Nonreactive) 04/15/17 17:51 Hepatitis C Antibody Non-reactive (NonReactive) 04/15/17 17:51
[2017-04-19] MEDS: NOVOLOG SUB-Q SCH ×4 (08:12→22:46)
[2017-04-19 08:41] LABS: Albumin/Globulin Ratio 0.6 %; Bilirubin,Direct 4.2 mg/dL (0-0.2); Bilirubin,Total 6.2 mg/dL (0.1-1.2); Magnesium 1.6 mg/dL (1.7-2.3); Total Protein 5.6 g/dL (6.3-8.2)
[2017-04-19 10:18] LABS: Phosphorous 3.8 mg/dL (2.5-4.5)
[2017-04-19] MEDS ORDERED: MAGNESIUM SULFATE 4GM/100ML 4 GM/100 ML BAG IV ONE (10:52)
[2017-04-19] MEDS: PROTONIX PO SCH (10:54)
[2017-04-19] MEDS: K-PHOS NEUTRAL PO SCH ×4 (10:54→22:47)
[2017-04-19] MEDS: THERAGRAN-M Tab PO SCH (10:57)
--- NOTE | 2017-04-19 15:35 | Gastroenterology Progress Note ---
Assessment and Plan - Patient Problems (1) Cholelithiasis Current Visit: Yes Status: Acute Qualifiers: Cholelithiasis location: C Cholecystitis presence: C Cholangitis presence : C Cholecystitis acuity: C Cholangitis acuity: C Biliary obstruction: B (2) Elevated LFTs Current Visit: Yes Status: Acute Plan to address problem: LFTs continue to improve. Await liver biopsy results, however, if patient is stable and further improved by tomorrow she can be discharged and f/u as outpatient. I discussed that f/u was of utmost importance. I suspect this could be alcoholic liver disease based on the pattern of the enzymes and improving trend. (3) Post PTCA Current Visit: No Status: Acute (4) Diabetes 1.5, managed as type 1 Current Visit: No Status: Chronic (5) Hyperlipemia Current Visit: No Status: Chronic Qualifiers: Hyperlipidemia type: H (6) Hypertension Current Visit: No Status: Chronic Qualifiers: Hypertension type: H Subjective Date of service: 04/19/17 Principal diagnosis: Liver Disease Interval history: The patient reports feeling well today. No pain, nausea or vomiting. Objective - Constitutional Vitals: Temp Pulse Resp BP Pulse Ox 99.0 F 85 18 114/63 100 04/19/17 12:04 04/19/17 07:40 04/19/17 12:04 04/19/17 12:04 04/19/17 07:40 General appearance: no acute distress - EENT Eyes: scleral icterus ENT: hearing intact, clear oral mucosa, dentition normal - Neck Neck: supple, normal ROM - Respiratory Respiratory effort: normal Respiratory: bilateral: CTA - Cardiovascular Rhythm: regular - Extremities Extremities: pulses intact, No edema, normal color, Full ROM - Gastrointestinal General gastrointestinal: Present: soft, non-tender, non-distended, normal bowel sounds - Neurologic Neurological: alert and oriented x3 - Labs CBC & Chem 7: 04/18/17 05:18 04/18/17 10:06 Labs: Laboratory Results - last 24 hr 04/15/17 04/15/17 04/18/17 17:51 17:51 16:06 POC Glucose 93 Phosphorus Magnesium Total Bilirubin Direct Bilirubin Indirect Bilirubin AST ALT Alkaline Phosphatase Total Protein Albumin Albumin/Globulin Ratio Mitochondria M2 Ab <=20.0 Actin IgG Antibody <20 04/18/17 04/19/17 04/19/17 21:27 06:15 06:17 POC Glucose 178 H 190 H Phosphorus 3.80 D Magnesium 1.60 L Total Bilirubin 6.20 H Direct Bilirubin 4.2 H Indirect Bilirubin 2.0 AST 112 H ALT 52 Alkaline Phosphatase 398 H Total Protein 5.6 L Albumin 2.0 L Albumin/Globulin Ratio 0.6 Mitochondria M2 Ab Actin IgG Antibody 04/19/17 12:10 POC Glucose 84 Phosphorus Magnesium Total Bilirubin Direct Bilirubin Indirect Bilirubin AST ALT Alkaline Phosphatase Total Protein Albumin Albumin/Globulin Ratio Mitochondria M2 Ab Actin IgG Antibody
[2017-04-19] MEDS: TYLENOL PO PRN (17:30)
[2017-04-19] MEDS: LOVENOX SUB-Q SCH (22:47)
[2017-04-20 07:22] LABS: Hematocrit 25.1 % (30.3-42.9); Mean Corpuscular HGB Conc 32 % (30-34); Mean Corpuscular Hemoglobin 33 pg (28-32); Mean Corpuscular Volume 104 fl (79-97); Platelet Count 241 K/mm3 (140-440); Red Blood Count 2.42 M/mm3 (3.65-5.03); Red Cell Distribution Width 16.5 % (13.2-15.2); White Blood Count 5.8 K/mm3 (4.5-11.0)
[2017-04-20 07:30] LABS: Blood Urea Nitrogen 4 mg/dL (7-17); Calcium 7.1 mg/dL (8.4-10.2); Carbon Dioxide 22 mmol/L (22-30); Glucose 132 mg/dL (65-100)
[2017-04-20 07:31] LABS: Alanine Aminotransferase 49 units/L (7-56); Albumin/Globulin Ratio 0.6 %; Alkaline Phosphatase 410 units/L (35-129); Anion Gap 16 mmol/L; Bilirubin,Indirect 1.7 mg/dL; Chloride 107.2 mmol/L (98-107); Sodium 142 mmol/L (137-145); Total Protein 5.5 g/dL (6.3-8.2)
[2017-04-20 07:43] LABS: Potassium 3.4 mmol/L (3.6-5.0)
[2017-04-20] MEDS: NOVOLOG SUB-Q SCH ×2 (08:00→12:54)
--- NOTE | 2017-04-20 09:23 | Discharge Summary ---
Providers - Providers Date of Admission: 04/15/17 05:46 Attending physician: CHARLOTTE STATON MD 04/15/17 05:51 Consult to Physician [CONS] Routine Consulting Provider: CHEO MANCILLA Reason For Exam: ab lft Place consult to:: Linn Ruano Notified:: Linn Phone number called:: In House Was contact made?: Yes If yes, spoke with:: Linn Time called:: 09:38 04/15/17 16:17 Consult to Wound/ET Nurse [CONS] Routine Reason For Exam: wound eval 04/15/17 17:25 Physical Therapy Evaluation and Treat [CONS] Routine Comment: Reason For Exam: debility 04/15/17 18:06 Occupational Therapy Evaluate and Treat [CONS] Routine Comment: Reason For Exam: Debility 04/16/17 10:34 Consult to Dietitian/Nutrition [CONS] Routine Physician Instructions: Reason For Exam: Reason for Consult: Malnutrition Speech Therapy Evaluation and Treat [CONS] Routine Reason For Exam: dysphagia Primary care physician: TRANSFER COORDINATOR Hospitalization Condition: Fair Hospital course: 69-year-old male past medical history of hypertension, coronary artery disease, diabetes, hyperlipidemia, GERD, major depression. Presents to the hospital with dizziness upon standing. Complaining of multiple fall over a period of 2 weeks. She is markedly jaundiced, complaining of itching. Her labs showed transaminitis, elevated alkaline phosphatase and elevated bilirubin. She had imaging of her abdomen, CT showed irregularities with her liver. Therefore serologies were sent for hepatitis which were negative, and autoimmune serologies were sent and was also negative. She was seen by gastroenterology who again recommended liver biopsy, biopsy of her liver was taken, she'll follow up in GI clinic for the results. He also recommended that she get outpatient EGD and colonoscopy for malignancy screening. She was markedly hypotensive, was orthostatic and had markedly abnormal electrolytes. ELECTROLYTES were repleted, and all her blood pressure medications were discontinued, she received aggressive IV hydration, after which have bilirubin levels trended downwards. She was also seen by cardiology, who recommended discontinuing prasugrel as it has been over a year after drug-eluting stents. She was also found to be hypoglycemic, therefore long acting insulin was discontinued. She also received physical therapy and dietitian consult. She was counseled about lifestyle modification and improved diet, the patient denied alcohol abuse. However her Sister stated that she has been a heavy drinker for a long time. Therefore given these findings and the preliminary liver pathology results showing extensive fatty infiltration, and the fact that patient has improved with IV fluids and etoh cessation. The most likely etiology is alcoholic liver disease.. Given multiple falls and instability, she is being discharged to a rehabilitation facility. Discharge diagnoses Alcoholic liver disease with acute hepatitis Alcohol abuse Obstructive jaundice Hyperbilirubinemia Transaminitis Suspected liver malignancy Orthostatic hypotension Hypotension Dehydration Autonomic imbalance Hypokalemia Hypomagnesemia Hypocalcemia Hypophosphatemia Hypoglycemia CAD Debility Frequent falls Hyponatremia Type 2 diabetes with long-term use of insulin, Severe malnutrition FTT Frailty Disposition: DC/[place]-03 SNF W [facility] CERT Time spent for discharge: 33 minutes Core Measure Documentation - Palliative Care Palliative Care/ Comfort Measures: Not Applicable - Core Measures Any of the following diagnoses?: none Exam - Physical Exam Narrative exam: General.: Appears chronically ill, HEENT: Moist mucous membranes, extraocular muscles intact, no lymphadenopathy, icteric sclera Neck: supple Cardiac: S1-S2 heard Lungs: clear to auscultation bilaterally Abdomen: soft , nontender, nondistended, bowel sounds positive Extremities: no edema clubbing or cyanosis Skin: no rash or lesions, jaundice, multiple bruises, wounds and erosions of multiple age Neurologic: no gross focal deficits, generalized weaknses Psych: appropriate behavior, appropriate mood, corporative, judgment intact - Constitutional Vitals: Temp Pulse Resp BP Pulse Ox 98.6 F 70 18 114/61 97 04/20/17 07:16 04/20/17 07:16 04/20/17 07:16 04/20/17 07:16 04/20/17 07:16 Plan Follow up with: PRIMARY CARE, [Primary Care Provider] - 3-5 Days Prescriptions: Insulin Regular, Human [HumuLIN R] 0 units SUB-Q AC #1 vial Potassium Chloride [K-Dur] 20 meq PO QDAY #14 tablet traMADol [Ultram 50 MG tab] 50 mg PO Q4HR PRN #7 tablet PRN Reason: Pain
[2017-04-20 09:44] LABS: Anisocytosis 1+; Basophils % (Manual) 0 % (0.0-1.8); Blastocytes % (Manual) 0 %
[2017-04-20 09:45] LABS: Diff Status Complete; Stomatocytes 1+; Target Cells 1+
[2017-04-20] MEDS: K-PHOS NEUTRAL PO SCH ×2 (10:32→14:56)
[2017-04-20] MEDS: PROTONIX PO SCH (10:32)
[2017-04-20] MEDS: THERAGRAN-M Tab PO SCH (10:32)
--- NOTE | 2017-04-20 11:57 | Gastroenterology Progress Note ---
Assessment and Plan - Patient Problems (1) Cholelithiasis Current Visit: Yes Status: Acute Qualifiers: Cholelithiasis location: C Cholecystitis presence: C Cholangitis presence : C Cholecystitis acuity: C Cholangitis acuity: C Biliary obstruction: B (2) Elevated LFTs Current Visit: Yes Status: Acute Plan to address problem: Improving steadily and asymptomatic. I spoke to the pathologist about the preliminary liver biopsy results and there is extensive fatty change consistent with alcoholic liver disease and DM. ETOH etiology is the likely stacker driver of jaundice as she is improving. OK to go home. Office f/u in 3 weeks advised. 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 Objective - Constitutional Vitals: Temp Pulse Resp BP Pulse Ox 98.6 F 70 18 114/61 97 04/20/17 07:16 04/20/17 07:16 04/20/17 07:16 04/20/17 07:16 04/20/17 07:16 General appearance: no acute distress - EENT Eyes: scleral icterus ENT: hearing intact, clear oral mucosa - Respiratory Respiratory effort: normal Respiratory: bilateral: CTA - Extremities Extremities: pulses intact, No edema, normal color, Full ROM - Gastrointestinal General gastrointestinal: Present: soft, non-tender, non-distended, normal bowel sounds - Neurologic Neurological: alert and oriented x3 - Labs CBC & Chem 7: 04/20/17 06:27 04/20/17 06:27 Labs: Laboratory Results - last 24 hr 04/19/17 04/19/17 04/19/17 12:10 17:25 21:39 WBC RBC Hgb Hct MCV MCH MCHC RDW Plt Count Add Manual Diff Total Counted Seg Neuts % (Manual) Band Neutrophils % Lymphocytes % (Manual) Reactive Lymphs % (Man) Monocytes % (Manual) Eosinophils % (Manual) Basophils % (Manual) Metamyelocytes % Myelocytes % Promyelocytes % Blast Cells % Nucleated RBC % Seg Neutrophils # Man Band Neutrophils # Lymphocytes # (Manual) Abs React Lymphs (Man) Monocytes # (Manual) Eosinophils # (Manual) Basophils # (Manual) Metamyelocytes # Myelocytes # Promyelocytes # Blast Cells # WBC Morphology Hypersegmented Neuts Hyposegmented Neuts Hypogranular Neuts Smudge Cells Toxic Granulation Toxic Vacuolation Dohle Bodies Pelger-Huet Anomaly Kim Rods Platelet Estimate Clumped Platelets Plt Clumps, EDTA Large Platelets Giant Platelets Platelet Satelliting Plt Morphology Comment RBC Morphology Dimorphic RBCs Polychromasia Hypochromasia Poikilocytosis Anisocytosis Microcytosis Macrocytosis Spherocytes Pappenheimer Bodies Sickle Cells Target Cells Tear Drop Cells Ovalocytes Stomatocytes Helmet Cells [place] Bodies [place] Rings [place] Cells Bite Cells Crenated Cell Elliptocytes Acanthocytes (Spur) Rouleaux Hemoglobin C Crystals Schistocytes Malaria parasites Vladislav Bodies Hem Pathologist Commnt Sodium Potassium Chloride Carbon Dioxide Anion Gap BUN Creatinine Estimated GFR BUN/Creatinine Ratio Glucose POC Glucose 84 171 H 294 H Calcium Phosphorus Magnesium Total Bilirubin Direct Bilirubin Indirect Bilirubin AST ALT Alkaline Phosphatase Total Protein Albumin Albumin/Globulin Ratio 04/20/17 04/20/17 04/20/17 05:27 06:27 06:27 WBC 5.8 RBC 2.42 L Hgb 8.0 L Hct 25.1 L MCV 104 H MCH 33 H MCHC 32 RDW 16.5 H Plt Count 241 Add Manual Diff Complete Total Counted 100 Seg Neuts % (Manual) 71.0 H Band Neutrophils % 2.0 Lymphocytes % (Manual) 19.0 Reactive Lymphs % (Man) 0 Monocytes % (Manual) 7.0 Eosinophils % (Manual) 1.0 Basophils % (Manual) 0 Metamyelocytes % 0 Myelocytes % 0 Promyelocytes % 0 Blast Cells % 0 Nucleated RBC % Not Reportable Seg Neutrophils # Man 4.1 Band Neutrophils # 0.1 Lymphocytes # (Manual) 1.1 L Abs React Lymphs (Man) 0.0 Monocytes # (Manual) 0.4 Eosinophils # (Manual) 0.1 Basophils # (Manual) 0.0 Metamyelocytes # 0.0 Myelocytes # 0.0 Promyelocytes # 0.0 Blast Cells # 0.0 WBC Morphology Not Reportable Hypersegmented Neuts Not Reportable Hyposegmented Neuts Not Reportable Hypogranular Neuts Not Reportable Smudge Cells Not Reportable Toxic Granulation Not Reportable Toxic Vacuolation Not Reportable Dohle Bodies Not Reportable Pelger-Huet Anomaly Not Reportable Kim Rods Not Reportable Platelet Estimate Not Reportable Clumped Platelets Not Reportable Plt Clumps, EDTA Not Reportable Large Platelets Not Reportable Giant Platelets Not Reportable Platelet Satelliting Not Reportable Plt Morphology Comment Not Reportable RBC Morphology Not Reportable Dimorphic RBCs Not Reportable Polychromasia Not Reportable Hypochromasia Not Reportable Poikilocytosis Not Reportable Anisocytosis 1+ Microcytosis Not Reportable Macrocytosis Not Reportable Spherocytes Not Reportable Pappenheimer Bodies Not Reportable Sickle Cells Not Reportable Target Cells 1+ Tear Drop Cells Not Reportable Ovalocytes Not Reportable Stomatocytes 1+ Helmet Cells Not Reportable [place] Bodies Not Reportable [place] Rings Not Reportable [place] Cells Not Reportable Bite Cells Not Reportable Crenated Cell Not Reportable Elliptocytes Not Reportable Acanthocytes (Spur) Not Reportable Rouleaux Not Reportable Hemoglobin C Crystals Not Reportable Schistocytes Not Reportable Malaria parasites Not Reportable Vladislav Bodies Not Reportable Hem Pathologist Commnt No Sodium 142 D Potassium 3.4 L D Chloride 107.2 H Carbon Dioxide 22 Anion Gap 16 BUN 4 L Creatinine 0.2 L Estimated GFR > 60 BUN/Creatinine Ratio 20.00 Glucose 132 H POC Glucose 151 H Calcium 7.1 L Phosphorus 3.40 Magnesium 2.00 Total Bilirubin 5.70 H Direct Bilirubin 4.0 H Indirect Bilirubin 1.7 AST 104 H ALT 49 Alkaline Phosphatase 410 H Total Protein 5.5 L Albumin 2.0 L Albumin/Globulin Ratio 0.6
[2017-04-20 16:09] VITALS: BP 99/55
[2017-04-21] MEDS ORDERED: Fluarix Quad 2017-2018(36 MOS+) IM ONE (12:00)
== END 2017-04-20 19:00 | DRG 432 ==
LOC: ED 21:59 → 3A 04-15 05:46
PROVIDERS: ADMIT Internal Medicine; ATTEND Internal Medicine
PROC: 0FB03ZX Excision of Liver, Percutaneous Approach, Diagnostic (ICD-10-PCS; principal; 2017-04-17)
DX: K70.10 Alcoholic hepatitis without ascites (principal); E43 Unspecified severe protein-calorie malnutrition; E87.1 Hypo-osmolality and hyponatremia; C22.9 Malignant neoplasm of liver, not specified as primary or secondary; I10 Essential (primary) hypertension; I25.10 Atherosclerotic heart disease of native coronary artery without angina pectoris; F32.9 Major depressive disorder, single episode, unspecified; E83.51 Hypocalcemia; K80.20 Calculus of gallbladder without cholecystitis without obstruction; M19.90 Unspecified osteoarthritis, unspecified site; E78.00 Pure hypercholesterolemia, unspecified; K21.9 Gastro-esophageal reflux disease without esophagitis; F17.210 Nicotine dependence, cigarettes, uncomplicated; E87.6 Hypokalemia; E86.0 Dehydration; G89.29 Other chronic pain; M54.9 Dorsalgia, unspecified; D64.9 Anemia, unspecified; E83.42 Hypomagnesemia; E11.649 Type 2 diabetes mellitus with hypoglycemia without coma; I95.1 Orthostatic hypotension; E83.39 Other disorders of phosphorus metabolism; R62.7 Adult failure to thrive; K76.0 Fatty (change of) liver, not elsewhere classified; Z68.26 Body mass index [BMI] 26.0-26.9, adult; Z71.41 Alcohol abuse counseling and surveillance of alcoholic; Z82.49 Family history of ischemic heart disease and other diseases of the circulatory system; Z79.899 Other long term (current) drug therapy; Z79.4 Long term (current) use of insulin; Z95.5 Presence of coronary angioplasty implant and graft; Z23 Encounter for immunization; Z68.25 Body mass index [BMI] 25.0-25.9, adult
CPT/HCPCS: 36415; 47000; 70450; 71020; 72125; 74177; 76705; 77012; 80048; 80053; 80074; 81001; 82106; 82248; 82550; 82553; 82805; 82962; 83516; 83520; 83735; 84100; 84132; 84439; 84443; 84484; 85007; 85025; 85027; 85379; 85610; 85730; 86038; 86705; 86706; 86709; 86803; 88307; 88313; 93005; 93010; 93306; 94760; 99406; G8978-GP; G8979-GP; G8987-GO; G8988-GO; G8996-GN; G8998-GN; J0610; J1650; J1815; J1818; J2250; J3010; J3475; J3480; J7040; Q9967

== ENCOUNTER 2018-02-15 13:36 | Emergency (ER) | payer MEDICARE ==
[2018-02-15 15:00] LABS: Hematocrit 37.8 % (30.3-42.9); Hemoglobin 12.3 gm/dl (10.1-14.3); Mean Corpuscular HGB Conc 33 % (30-34); Mean Corpuscular Hemoglobin 32 pg (28-32); Mean Corpuscular Volume 97 fl (79-97); Platelet Count 231 K/mm3 (140-440); Red Blood Count 3.89 M/mm3 (3.65-5.03); Red Cell Distribution Width 15.5 % (13.2-15.2)
[2018-02-15 15:05] LABS: BUN/Creatinine Ratio 7; Blood Urea Nitrogen 4 mg/dL (7-17); Calcium 8.3 mg/dL (8.4-10.2); Hemolysis Index 82
--- NOTE | 2018-02-15 16:19 | XRay Report ---
FINAL REPORT EXAM: XR SHOULDER 2+V RT HISTORY: PAIN R/T FALL WITH DECREASED ROM TECHNIQUE: 4 views of right shoulder. PRIORS: None. FINDINGS: Degenerative changes in both glenohumeral and AC joints. No apparent fracture or dislocation. Soft tissues grossly unremarkable. IMPRESSION: 1. No acute osseous abnormality. 2. Degenerative changes.
[2018-02-15] MEDS ORDERED: NACL 0.9% 1000 ML 1,000 ML IV ONE ×3 (16:20→17:11)
--- NOTE | 2018-02-15 16:38 | Emergency Department Report ---
HPI - General Chief Complaint: Fall Time Seen by Provider: 02/15/18 16:18 - HPI HPI: Room 5 The patient is a 49-year-old female presenting with a chief complaint of fall. The patient's states the patient has been consuming alcohol within. Today at approximately 12:30. The patient fall. The patient never lost consciousness. Patient complains of pain in the right side of her neck and right shoulder. Location: [See above] Duration: [See above] Quality: Pain Severity: Moderate Modifying factors: [see above] Context: [see above] Mode of transportation: [not driving] ED Past Medical Hx - Past Medical History Hx Hypertension: No (was taken off of blood pressure medication after improvement) Hx Diabetes: Yes Hx Arthritis: Yes (Osteo) Hx Psychiatric Treatment: Yes (ALCOHOL ABUSE) Additional medical history: HIGH CHOLESTEROL,SYNCOPE,ELEVATED LIVER ENZYMES-R/T ALCOHOL ABUSE - Surgical History Hx Coronary Stent: Yes Additional Surgical History: Cyst removal from behind ear - Social History Smoking Status: Current Every Day Smoker (2/3 pack per day) Substance Use Type: None (denies illicit drug use), Alcohol - Medications Home Medications: Home Medications Medication Instructions Recorded Confirmed Last Taken Type Insulin Regular, Human [HumuLIN R] 0 units SUB-Q AC #1 vial 04/20/17 Unknown Rx Multivitamin Tab W-MINERAL 1 each PO QDAY #7 tablet 04/20/17 Unknown Rx [Multiple Vitamin/Mineral (Theragran M)] Pantoprazole [Protonix TAB] 40 mg PO DAILY #30 tablet 04/20/17 Unknown Rx Potassium Chloride [K-Dur] 20 meq PO QDAY #14 tablet 04/20/17 Unknown Rx diphenhydrAMINE [Benadryl CAP] 25 mg PO Q6H PRN #7 capsule 04/20/17 Unknown Rx traMADol [Ultram 50 MG tab] 50 mg PO Q4HR PRN #7 tablet 04/20/17 Unknown Rx ED Review of Systems ROS: Stated complaint: FALL Other details as noted in HPI Constitutional: no symptoms reported Eyes: denies: eye pain ENT: denies: throat pain Respiratory: no symptoms reported Cardiovascular: denies: chest pain Gastrointestinal: denies: abdominal pain Genitourinary: denies: dysuria Musculoskeletal: arthralgia, myalgia Neurological: denies: headache Physical Exam - Physical Exam Vital Signs: Vital Signs 02/15/18 02/15/18 14:31 16:03 Temperature 97.3 F L Pulse Rate 62 Respiratory 18 Rate Blood Pressure 77/39 Blood Pressure 81/39 [Left] O2 Sat by Pulse 100 Oximetry Physical Exam: GENERAL: The patient is well-developed well-nourished female lying on her shirt with obvious odor of alcohol on her breath. [] HEENT: Normocephalic. Forehead ecchymosis. Extraocular motions are intact. Patient has moist mucous membranes. NECK: Supple. No Axial step offs. Mild discomfort to palpation CHEST/LUNGS: Clear to auscultation. There is no respiratory distress noted. HEART/CARDIOVASCULAR: Regular. There is no tachycardia. There is no gallop rub or murmur. ABDOMEN: Abdomen is soft, nontender. Patient has normal bowel sounds. There is no abdominal distention. SKIN: There is no rash. There is no edema. There is no diaphoresis. NEURO: The patient is awake but intoxicated. The patient is cooperative. Cranial nerves II through XII grossly intact. The patient has no focal neurologic deficits. Patient moves all extremities MUSCULOSKELETAL: There is tenderness of the right shoulder. ED Course Vital Signs 02/15/18 02/15/18 14:31 16:03 Temperature 97.3 F L Pulse Rate 62 Respiratory 18 Rate Blood Pressure 77/39 Blood Pressure 81/39 [Left] O2 Sat by Pulse 100 Oximetry ED Medical Decision Making - Lab Data Result diagrams: 02/15/18 14:42 02/15/18 14:42 Laboratory Tests 02/15/18 02/15/18 02/15/18 14:42 14:42 14:42 WBC 4.1 L RBC 3.89 Hgb 12.3 Hct 37.8 MCV 97 MCH 32 MCHC 33 RDW 15.5 H Plt Count 231 Sodium 143 Potassium 5.0 Chloride 106.0 Carbon Dioxide 21 L Anion Gap 21 BUN 4 L Creatinine 0.6 L Estimated GFR > 60 BUN/Creatinine Ratio 7 Glucose 156 H Calcium 8.3 L Plasma/Serum Alcohol 0.35 H - Radiology Data Radiology results: report reviewed (right shoulder x-ray, CT head, CT cervical spine, CT facial bones), image reviewed (right shoulder x-ray, CT head, CT cervical spine, CT facial bones) interpreted by me: Right shoulder x-ray-no fracture, no dislocation [address] [address] XRay Report Signed Patient: MARIA GUADALUPE MCKINLEY MR#: [id number] : 1960 Acct:[id number] Age/Sex: 57 / F ADM Date: 02/15/18 Loc: ED Attending Dr: Ordering Physician: OLIVER LANZA MD Date of Service: 02/15/18 Procedure(s): XR shoulder 2+V RT Accession Number(s): [id number] cc: OLIVER LANZA MD Fluoro Time In Minutes: FINAL REPORT EXAM: XR SHOULDER 2+V RT HISTORY: PAIN R/T FALL WITH DECREASED ROM TECHNIQUE: 4 views of right shoulder. PRIORS: None. FINDINGS: Degenerative changes in both glenohumeral and AC joints. No apparent fracture or dislocation. Soft tissues grossly unremarkable. IMPRESSION: 1. No acute osseous abnormality. 2. Degenerative changes. Transcribed By: [facility] Dictated By: CLAUDETTE WILSON MD Electronically Authenticated By: CLAUDETTE WILSON MD Signed Date/Time: 02/15/181611 DD/ 11 TD/TT: 02/15/[address] [address] Cat Scan Report Signed Patient: MARIA GUADALUPE MCKINLEY MR#: [id number] : 1960 Acct:[id number] Age/Sex: 57 / F ADM Date: 02/15/18 Loc: ED Attending Dr: Ordering Physician: OLIVER LANZA MD Date of Service: 02/15/18 Procedure(s): CT head/brain wo con Accession Number(s): [id number] cc: OLIVER LANZA MD FINAL REPORT EXAM: CT HEAD/BRAIN WO CON HISTORY: HEAD INJURY R/T FALL TECHNIQUE: Noncontrast CT axial images of the brain. PRIORS: 14 April 2017. FINDINGS: No parenchymal mass, mass effect, hemorrhage, midline shift or hydrocephalus. No evidence of acute cortical infarct. No abnormal, extra-axial fluid or air collection. Mild, patchy low density in the periventricular and subcortical white matter is nonspecific, but may relate to chronic small vessel ischemic change. Age-related volume loss. Osseous calvarium grossly intact. IMPRESSION: 1. No acute intracranial findings. 2. Chronic ischemic and atrophic changes. Transcribed By: [facility] Dictated By: CLAUDETTE WILSON MD Electronically Authenticated By: CLAUDETTE WILSON MD Signed Date/Time: 02/15/181723 DD/ 23 TD/TT: 02/15/181723 CT cervical spine (read by radiologist)-no acute fracture CT facial bones (read by radiologist)-no acute fracture - Differential Diagnosis alcohol intoxication, ICH, closed head injury, shoulder fracture, cervical Critical care attestation.: If time is entered above; I have spent that time in minutes in the direct care of this critically ill patient, excluding procedure time. ED Disposition Clinical Impression: Alcohol intoxication, Closed head injury, Acute cervical myofascial strain, Contusion of right shoulder Disposition: DC-01 TO HOME OR SELFCARE Is pt being admited?: No Does the pt Need Aspirin: No Condition: Stable Instructions: Muscle Strain (ED) Additional Instructions: Return to the emergency department immediately should you develop worsening symptoms, fever, inability to tolerate food or liquid or any other concerns. Referrals: PRIMARY CARE, [Primary Care Provider] - 3-5 Days [facility] [Outside] - 3-5 Days (If you desire to stop consuming alcohol please follow-up with [facility].) Time of Disposition: 18:15
[2018-02-15 17:23] VITALS: BP 100/47
--- NOTE | 2018-02-15 17:31 | Cat Scan Report ---
FINAL REPORT EXAM: CT HEAD/BRAIN WO CON HISTORY: HEAD INJURY R/T FALL TECHNIQUE: Noncontrast CT axial images of the brain. PRIORS: 14 April 2017. FINDINGS: No parenchymal mass, mass effect, hemorrhage, midline shift or hydrocephalus. No evidence of acute cortical infarct. No abnormal, extra-axial fluid or air collection. Mild, patchy low density in the periventricular and subcortical white matter is nonspecific, but may relate to chronic small vessel ischemic change. Age-related volume loss. Osseous calvarium grossly intact. IMPRESSION: 1. No acute intracranial findings. 2. Chronic ischemic and atrophic changes.
[2018-02-15] MEDS ORDERED: TORADOL ONE (17:43)
[2018-02-15] MEDS ORDERED: TORADOL IV ONE (17:49)
--- NOTE | 2018-02-15 17:58 | Cat Scan Report ---
FINAL REPORT PROCEDURE: CT CERVICAL SPINE WO CON TECHNIQUE: Computerized tomography of the cervical spine was performed from the skull base to T1 without contrast material. HISTORY: HEAD INJURY R/T FALL COMPARISON: 04/14/2017 FINDINGS: Vertebral body heights and alignment are preserved and stable compared to the prior study. There is ossification of the anterior longitudinal ligament. There are osteoarthritic changes of the atlantodental articulation. No acute fracture or subluxation is seen. IMPRESSION: No acute fracture or subluxation is seen.
--- NOTE | 2018-02-15 17:59 | Cat Scan Report ---
FINAL REPORT EXAM: CT FACIAL BONES WO CON HISTORY: HEAD INJURY R/T FALL TECHNIQUE: Spiral CT scanning of the facial bones with multiplanar reformations. PRIORS: None. FINDINGS: No acute fracture. Mandible, zygomatic arches, orbits, paranasal sinuses, and pterygoid plates appear intact. Optic globes grossly intact. IMPRESSION: 1. No acute fracture.
== END 2018-02-15 18:30 | disposition home or self-care (01) ==
LOC: ED 13:36
DX: S16.1XXA Strain of muscle, fascia and tendon at neck level, initial encounter (principal); S40.011A Contusion of right shoulder, initial encounter; S09.90XA Unspecified injury of head, initial encounter; F10.129 Alcohol abuse with intoxication, unspecified; E11.9 Type 2 diabetes mellitus without complications; M19.90 Unspecified osteoarthritis, unspecified site; E78.00 Pure hypercholesterolemia, unspecified; F17.210 Nicotine dependence, cigarettes, uncomplicated; Z79.4 Long term (current) use of insulin; W19.XXXA Unspecified fall, initial encounter; Y93.89 Activity, other specified; Y99.8 Other external cause status; Y92.89 Other specified places as the place of occurrence of the external cause
CPT/HCPCS: 36415; 70450; 70486; 72125; 73030; 80048; 85027; 96374; 99284; G0480; J1885; J7030; 80320

== ENCOUNTER 2020-03-19 13:11 | Outpatient (CLI) | payer MEDICARE ==
[2020-03-19] MEDS ORDERED: LIDOCAINE (4%) 40 MG/ML TOPICAL SOLN 50 ML BOTTLE TP ONE (13:35)
== END 2020-03-19 13:12 | disposition home or self-care (01) ==
LOC: WOUND 13:11
PROVIDERS: ATTEND Surgery
DX: N76.4 Abscess of vulva (principal); M72.6 Necrotizing fasciitis; E10.9 Type 1 diabetes mellitus without complications; E78.5 Hyperlipidemia, unspecified; I25.10 Atherosclerotic heart disease of native coronary artery without angina pectoris; F17.210 Nicotine dependence, cigarettes, uncomplicated; Z95.818 Presence of other cardiac implants and grafts
CPT/HCPCS: 11042; 82962; G0463; 99204; 99214

== ENCOUNTER 2020-04-02 13:32 | Outpatient (CLI) | payer MEDICARE ==
[2020-04-02] MEDS ORDERED: LIDOCAINE (4%) 40 MG/ML TOPICAL SOLN 50 ML BOTTLE TP ONE (13:43)
== END 2020-04-02 13:33 | disposition home or self-care (01) ==
LOC: WOUND 13:32
PROVIDERS: ATTEND Surgery
DX: N76.4 Abscess of vulva (principal); M72.6 Necrotizing fasciitis; E10.9 Type 1 diabetes mellitus without complications; E78.5 Hyperlipidemia, unspecified; I25.10 Atherosclerotic heart disease of native coronary artery without angina pectoris; F17.210 Nicotine dependence, cigarettes, uncomplicated; Z95.818 Presence of other cardiac implants and grafts
CPT/HCPCS: 99214; G0463

== ENCOUNTER 2020-04-16 13:03 | Outpatient (CLI) | payer MEDICARE ==
[2020-04-16] MEDS ORDERED: LIDOCAINE (4%) 40 MG/ML TOPICAL SOLN 50 ML BOTTLE TP NR (13:05)
== END 2020-04-16 13:04 | disposition home or self-care (01) ==
LOC: WOUND 13:03
PROVIDERS: ATTEND Surgery
DX: N76.4 Abscess of vulva (principal); M72.6 Necrotizing fasciitis; E10.9 Type 1 diabetes mellitus without complications; E78.5 Hyperlipidemia, unspecified; I25.10 Atherosclerotic heart disease of native coronary artery without angina pectoris; F17.210 Nicotine dependence, cigarettes, uncomplicated; Z95.818 Presence of other cardiac implants and grafts

== ENCOUNTER 2020-04-30 11:06 | Outpatient (CLI) | payer MEDICARE ==
[2020-04-30] MEDS ORDERED: LIDOCAINE (4%) 40 MG/ML TOPICAL SOLN 50 ML BOTTLE TP NR (11:20)
[2020-04-30] MEDS ORDERED: SODIUM CHLORIDE 0.9% IRR 500 ML BOTTLE IR ONE (12:26)
[2020-04-30] MEDS ORDERED: LIDOCAINE (4%) 40 MG/ML TOPICAL SOLN 50 ML BOTTLE TP ONE (12:26)
== END 2020-04-30 11:07 | disposition home or self-care (01) ==
LOC: WOUND 11:06
PROVIDERS: ATTEND Surgery
DX: N76.4 Abscess of vulva (principal); M72.6 Necrotizing fasciitis; E10.9 Type 1 diabetes mellitus without complications; E78.5 Hyperlipidemia, unspecified; I25.10 Atherosclerotic heart disease of native coronary artery without angina pectoris; F17.210 Nicotine dependence, cigarettes, uncomplicated; Z95.818 Presence of other cardiac implants and grafts

== ENCOUNTER 2020-05-14 13:10 | Outpatient (CLI) | payer MEDICARE ==
[2020-05-14] MEDS ORDERED: LIDOCAINE (4%) 40 MG/ML TOPICAL SOLN 50 ML BOTTLE TP ONE (13:16)
== END 2020-05-14 13:11 | disposition home or self-care (01) ==
LOC: WOUND 13:10
PROVIDERS: ATTEND Surgery
DX: N76.4 Abscess of vulva (principal); M72.6 Necrotizing fasciitis; E10.9 Type 1 diabetes mellitus without complications; E78.5 Hyperlipidemia, unspecified; I25.10 Atherosclerotic heart disease of native coronary artery without angina pectoris; F17.210 Nicotine dependence, cigarettes, uncomplicated; Z95.818 Presence of other cardiac implants and grafts

== ENCOUNTER 2020-05-28 13:10 | Outpatient (CLI) | payer MEDICARE ==
[2020-05-28] MEDS ORDERED: LIDOCAINE (4%) 40 MG/ML TOPICAL SOLN 50 ML BOTTLE TP ONE (13:31)
== END 2020-05-28 13:11 | disposition home or self-care (01) ==
LOC: WOUND 13:10
PROVIDERS: ATTEND Surgery
DX: N76.4 Abscess of vulva (principal); M72.6 Necrotizing fasciitis; E78.5 Hyperlipidemia, unspecified; E11.9 Type 2 diabetes mellitus without complications; I25.10 Atherosclerotic heart disease of native coronary artery without angina pectoris; F17.210 Nicotine dependence, cigarettes, uncomplicated; Z95.818 Presence of other cardiac implants and grafts

== ENCOUNTER 2020-06-11 13:22 | Outpatient (CLI) | payer MEDICARE ==
[2020-06-11] MEDS ORDERED: LIDOCAINE (4%) 40 MG/ML TOPICAL SOLN 50 ML BOTTLE TP ONE (13:45)
== END 2020-06-11 13:23 | disposition home or self-care (01) ==
LOC: WOUND 13:22
PROVIDERS: ATTEND Surgery
DX: N76.4 Abscess of vulva (principal); M72.6 Necrotizing fasciitis; E78.5 Hyperlipidemia, unspecified; E11.9 Type 2 diabetes mellitus without complications; I25.10 Atherosclerotic heart disease of native coronary artery without angina pectoris; F17.210 Nicotine dependence, cigarettes, uncomplicated; Z95.818 Presence of other cardiac implants and grafts
CPT/HCPCS: 99213; G0463

== ENCOUNTER 2021-06-06 13:38 | Inpatient (IN) | payer MEDICARE ==
[2021-06-06] MEDS ORDERED: SODIUM CHLORIDE 0.9% 1000 ML 1,000 ML IV ONE (14:20)
[2021-06-06] MEDS ORDERED: KETOROLAC 30 MG/1 ML INJ IV ONE (14:20)
[2021-06-06 14:47] LABS: Basophils # (Auto) 0.1 K/mm3 (0.0-0.1); Basophils % (Auto) 0.9 % (0.0-1.8); Eosinophils # (Auto) 0.1 K/mm3 (0.0-0.4); Eosinophils % (Auto) 0.7 % (0.0-4.3); Hematocrit 27.5 % (30.3-42.9); Lymphocytes # (Auto) 2.2 K/mm3 (1.2-5.4); Lymphocytes % (Auto) 20.1 % (13.4-35.0); Mean Corpuscular HGB Conc 33 % (30-34); Mean Corpuscular Volume 92 fl (79-97); Monocytes # (Auto) 1.3 K/mm3 (0.0-0.8); Platelet Count 381 K/mm3 (140-440); Red Blood Count 2.97 M/mm3 (3.65-5.03); Red Cell Distribution Width 15.7 % (13.2-15.2)
[2021-06-06 14:51] LABS: Bacteria,Urine 1+ /HPF (Negative); Bilirubin,Urine NEG (Negative); Blood,Urine NEG (Negative); Color,Urine Yellow (Yellow); Hyaline Casts,Urine 56 /LPF; Protein,Urine <15 mg/dL mg/dL (Negative); Urobilinogen,Urine < 2.0 mg/dL (<2.0)
[2021-06-06 14:57] LABS: WBC,Urine > 182.0 /HPF (0.0-6.0)
[2021-06-06 15:06] LABS: Alanine Aminotransferase 8 units/L (7-56); Albumin 2.1 g/dL (3.9-5); Blood Urea Nitrogen 21 mg/dL (7-17); Calcium 9.1 mg/dL (8.4-10.2); Hemolysis Index 5
[2021-06-06 15:10] LABS: BUN/Creatinine Ratio 42
--- NOTE | 2021-06-06 15:41 | Emergency Department Report ---
ED General Adult HPI - General Chief complaint: Wound/Laceration Stated complaint: BODY ACHES WOUND PAIN Time Seen by Provider: 06/06/21 14:19 Source: patient, family Mode of arrival: Ambulatory Limitations: No Limitations - History of Present Illness Initial comments: Who presents with weakness and altered mental status. History is limited due to patient's condition. History obtained by EMS patient has chronic left-sided hemiplegia due to a suspected stroke. Which was documented at outside hospital. Patient has a chronic Waite and she has been weak. She is also complaining of neck and body pain she says the pain is moderate nothing makes it better nothing makes it worse. Severity scale (0 -10): 5 - Related Data Home Medications Medication Instructions Recorded Confirmed Last Taken ALPRAZolam [Xanax TAB] 0.5 mg PO BID PRN 05/08/21 05/08/21 Unknown Brimonidine Tartrate/Timolol 1 drop OU BID 05/08/21 05/08/21 Unknown [Combigan 0.2%-0.5% Eye Drops] Empagliflozin [Jardiance] 10 mg PO QDAY 05/08/21 05/08/21 05/07/21 Moxifloxacin 0.5% 1 drops OD QID 05/08/21 05/08/21 Unknown Previous Rx's Medication Instructions Recorded Last Taken Type Docusate Sodium [Colace CAP] 100 mg PO BID PRN capsule 05/15/21 Unknown Rx Gabapentin 300 mg PO BID capsule 05/15/21 Unknown Rx Lispro Insulin [HumaLOG] 0 unit SUB-Q ACHS units 05/15/21 Unknown Rx Pantoprazole [Protonix TAB] 40 mg PO DAILY tablet 05/15/21 Unknown Rx Potassium Chloride [K-Dur] 20 meq PO QDAY tablet 05/15/21 Unknown Rx Allergies Allergy/AdvReac Type Severity Reaction Status Date / Time No Known Allergies Allergy Verified 05/08/21 08:40 ED Review of Systems ROS: Stated complaint: BODY ACHES WOUND PAIN Other details as noted in HPI Comment: Unobtainable due to pts medical conditions ED Past Medical Hx - Past Medical History Previous Medical History?: Yes Hx Hypertension: No Hx Heart Attack/AMI: No Hx Congestive Heart Failure: No Hx Diabetes: Yes Hx Deep Vein Thrombosis: No Hx Liver Disease: No Hx Renal Disease: No Hx Arthritis: Yes Hx Psychiatric Treatment: Yes (ALCOHOL ABUSE) Hx Asthma: No Hx COPD: No Additional medical history: HIGH CHOLESTEROL,SYNCOPE,ELEVATED LIVER ENZYMES-R/T ALCOHOL ABUSE - Surgical History Past Surgical History?: Yes Hx Coronary Stent: Yes Hx Pacemaker: No Hx Internal Defibrillator: No Additional Surgical History: Cyst removal from behind ear - Social History Smoking Status: Unknown if ever smoked - Medications Home Medications: Home Medications Medication Instructions Recorded Confirmed Last Taken Type ALPRAZolam [Xanax TAB] 0.5 mg PO BID PRN 05/08/21 05/08/21 Unknown History Brimonidine Tartrate/Timolol 1 drop OU BID 05/08/21 05/08/21 Unknown History [Combigan 0.2%-0.5% Eye Drops] Empagliflozin [Jardiance] 10 mg PO QDAY 05/08/21 05/08/21 05/07/21 History Moxifloxacin 0.5% 1 drops OD QID 05/08/21 05/08/21 Unknown History Docusate Sodium [Colace CAP] 100 mg PO BID PRN capsule 05/15/21 Unknown Rx Gabapentin 300 mg PO BID capsule 05/15/21 Unknown Rx Lispro Insulin [HumaLOG] 0 unit SUB-Q ACHS units 05/15/21 Unknown Rx Pantoprazole [Protonix TAB] 40 mg PO DAILY tablet 05/15/21 Unknown Rx Potassium Chloride [K-Dur] 20 meq PO QDAY tablet 05/15/21 Unknown Rx ED Physical Exam - General Limitations: No Limitations General appearance: alert, in no apparent distress - Head Head exam: Present: atraumatic, normocephalic - Eye Eye exam: Present: normal appearance - ENT ENT exam: Present: mucous membranes moist - Neck Neck exam: Present: normal inspection - Respiratory Respiratory exam: Present: normal lung sounds bilaterally. Absent: respiratory distress - Cardiovascular Cardiovascular Exam: Present: regular rate, normal rhythm. Absent: systolic m urmur, diastolic murmur, rubs, gallop - GI/Abdominal GI/Abdominal exam: Present: soft, normal bowel sounds - External exam: Present: other (chronic waite) - Extremities Exam Extremities exam: Present: other (contractures ) - Back Exam Back exam: Present: normal inspection - Neurological Exam Neurological exam: Present: altered, other (left hemiplegia ) - Psychiatric Psychiatric exam: Present: normal affect, normal mood - Skin Skin exam: Present: warm, dry, intact, normal color. Absent: rash ED Course Vital Signs 06/06/21 06/06/21 06/06/21 13:42 14:12 14:19 Temperature 98.8 F 98.2 F Pulse Rate 83 Respiratory 16 7 L Rate Blood Pressure Blood Pressure 90/39 [Left] O2 Sat by Pulse 100 Oximetry 06/06/21 06/06/21 06/06/21 14:30 14:45 15:01 Temperature Pulse Rate 84 81 81 Respiratory 10 L 8 L 11 L Rate Blood Pressure 107/53 106/43 97/43 Blood Pressure [Left] O2 Sat by Pulse 100 99 100 Oximetry 06/06/21 06/06/21 15:15 15:31 Temperature Pulse Rate 79 77 Respiratory 10 L 13 Rate Blood Pressure 97/44 98/50 Blood Pressure [Left] O2 Sat by Pulse 100 100 Oximetry ED Medical Decision Making - Lab Data Result diagrams: 06/06/21 14:33 06/06/21 14:33 Lab Results 06/06/21 06/06/21 06/06/21 Range/Units 14:33 14:33 14:33 WBC 11.1 H (4.5-11.0) K/mm3 RBC 2.97 L (3.65-5.03) M/mm3 Hgb 9.0 L (10.1-14.3) gm/dl Hct 27.5 L (30.3-42.9) % MCV 92 (79-97) fl MCH 30 (28-32) pg MCHC 33 (30-34) % RDW 15.7 H (13.2-15.2) % Plt Count 381 (140-440) K/mm3 Lymph % (Auto) 20.1 (13.4-35.0) % [place] % (Auto) 12.0 H (0.0-7.3) % Eos % (Auto) 0.7 (0.0-4.3) % Baso % (Auto) 0.9 (0.0-1.8) % Lymph # (Auto) 2.2 (1.2-5.4) K/mm3 [place] # (Auto) 1.3 H (0.0-0.8) K/mm3 Eos # (Auto) 0.1 (0.0-0.4) K/mm3 Baso # (Auto) 0.1 (0.0-0.1) K/mm3 Seg Neutrophils % 66.3 (40.0-70.0) % Seg Neutrophils # 7.4 (1.8-7.7) K/mm3 Sodium 135 L (137-145) mmol/L Potassium 3.9 (3.6-5.0) mmol/L Chloride 102.0 (98-107) mmol/L Carbon Dioxide 22 (22-30) mmol/L Anion Gap 15 mmol/L BUN 21 H (7-17) mg/dL Creatinine 0.5 L (0.6-1.2) mg/dL Estimated GFR > 60 ml/min BUN/Creatinine Ratio 42 % Glucose 217 H (65-100) mg/dL POC Glucose (70-105) mg/dL Lactic Acid 1.80 (0.7-2.0) mmol/L Calcium 9.1 (8.4-10.2) mg/dL Total Bilirubin 0.30 (0.1-1.2) mg/dL AST 8 (5-40) units/L ALT 8 (7-56) units/L Alkaline Phosphatase 109 (35-129) units/L Total Protein 7.9 (6.3-8.2) g/dL Albumin 2.1 L (3.9-5) g/dL Albumin/Globulin Ratio 0.4 % Urine Color (Yellow) Urine Turbidity (Clear) Urine pH (5.0-7.0) Ur Specific [place] (1.003-1.030) Urine Protein (Negative) mg/dL Urine Glucose (UA) (Negative) mg/dL Urine Ketones (Negative) mg/dL Urine Blood (Negative) Urine Nitrite (Negative) Urine Bilirubin (Negative) Urine Urobilinogen (<2.0) mg/dL Ur Leukocyte Esterase (Negative) Urine WBC (Auto) (0.0-6.0) /HPF Urine RBC (Auto) (0.0-6.0) /HPF U Epithel Cells (Auto) (0-13.0) /HPF Urine Bacteria (Auto) (Negative) /HPF Urine WBC Clumps /HPF Hyaline Casts /LPF Ur Yeast w Hyphae /HPF Urine Yeast (Budding) /HPF 06/06/21 06/06/21 Range/Units 15:00 Unknown WBC (4.5-11.0) K/mm3 RBC (3.65-5.03) M/mm3 Hgb (10.1-14.3) gm/dl Hct (30.3-42.9) % MCV (79-97) fl MCH (28-32) pg MCHC (30-34) % RDW (13.2-15.2) % Plt Count (140-440) K/mm3 Lymph % (Auto) (13.4-35.0) % [place] % (Auto) (0.0-7.3) % Eos % (Auto) (0.0-4.3) % Baso % (Auto) (0.0-1.8) % Lymph # (Auto) (1.2-5.4) K/mm3 [place] # (Auto) (0.0-0.8) K/mm3 Eos # (Auto) (0.0-0.4) K/mm3 Baso # (Auto) (0.0-0.1) K/mm3 Seg Neutrophils % (40.0-70.0) % Seg Neutrophils # (1.8-7.7) K/mm3 Sodium (137-145) mmol/L Potassium (3.6-5.0) mmol/L Chloride (98-107) mmol/L Carbon Dioxide (22-30) mmol/L Anion Gap mmol/L BUN (7-17) mg/dL Creatinine (0.6-1.2) mg/dL Estimated GFR ml/min BUN/Creatinine Ratio % Glucose (65-100) mg/dL POC Glucose 191 H (70-105) mg/dL Lactic Acid (0.7-2.0) mmol/L Calcium (8.4-10.2) mg/dL Total Bilirubin (0.1-1.2) mg/dL AST (5-40) units/L ALT (7-56) units/L Alkaline Phosphatase (35-129) units/L Total Protein (6.3-8.2) g/dL Albumin (3.9-5) g/dL Albumin/Globulin Ratio % Urine Color Yellow (Yellow) Urine Turbidity Cloudy (Clear) Urine pH 5.0 (5.0-7.0) Ur Specific [place] 1.015 (1.003-1.030) Urine Protein <15 mg/dl (Negative) mg/dL Urine Glucose (UA) >=500 (Negative) mg/dL Urine Ketones Neg (Negative) mg/dL Urine Blood Neg (Negative) Urine Nitrite Pos (Negative) Urine Bilirubin Neg (Negative) Urine Urobilinogen < 2.0 (<2.0) mg/dL Ur Leukocyte Esterase Lg (Negative) Urine WBC (Auto) > 182.0 H (0.0-6.0) /HPF Urine RBC (Auto) 179.0 (0.0-6.0) /HPF U Epithel Cells (Auto) 4.0 (0-13.0) /HPF Urine Bacteria (Auto) 1+ (Negative) /HPF Urine WBC Clumps 2+ /HPF Hyaline Casts 56 /LPF Ur Yeast w Hyphae Few /HPF Urine Yeast (Budding) 3+ /HPF - EKG Data -: EKG Interpreted by Me - EKG Data EKG time 14: 52 rate 81 normal sinus rhythm old septal infarct impression abnormal EKG 06/06/21 15:54 - Medical Decision Making Cdx: Urosepsis ddx: PNA, electrolyte abnormality I will get cxr, ua, cbc, bmp, ekg, lactic acid and antibiotics Critical Care Time: Yes (60) Critical care attestation.: If time is entered above; I have spent that time in minutes in the direct care of this critically ill patient, excluding procedure time. ED Disposition Clinical Impression: Generalized weakness UTI (urinary tract infection) Qualifiers: Urinary tract infection type: catheter-associated UTI Indwelling urinary catheter type: indwelling urethral catheter Encounter type: initial encounter Qualified Code(s): T83.511A - Infection and inflammatory reaction due to indwelling urethral catheter, initial encounter; N39.0 - Urinary tract infection, site not specified Sacral decubitus ulcer Qualifiers: Pressure injury stage: stage 3 Qualified Code(s): L89.153 - Pressure ulcer of sacral region, stage 3 Sepsis Qualifiers: Sepsis type: sepsis due to unspecified organism Sepsis acute organ dysfunction status: without acute organ dysfunction Qualified Code(s): A41.9 - Sepsis, unspecified organism Diabetes Qualifiers: Diabetes mellitus type: type 2 Diabetes mellitus fpc insulin use: unspecified fpc insulin use status Diabetes mellitus complication status: with other specified complication Qualified Code(s): E11.69 - Type 2 diabetes mellitus with other specified complication Disposition: 01 HOME / SELF CARE / HOMELESS Is pt being admited?: Yes Does the pt Need Aspirin: No Condition: Stable Instructions: Diabetes Mellitus Type 2 in Adults (ED)
[2021-06-06] MEDS ORDERED: cefTRIAXone/NS 2 GM/100 ML 2 GM/100 ML BAG IV ONE (15:56)
--- NOTE | 2021-06-06 16:24 | XRay Report ---
CHEST 1 VIEW INDICATION / CLINICAL INFORMATION: weakness. COMPARISON: 05/07/2021 FINDINGS: SUPPORT DEVICES: None. HEART / MEDIASTINUM: No significant abnormality. LUNGS / PLEURA: No significant pulmonary or pleural abnormality. No pneumothorax. ADDITIONAL FINDINGS: No significant additional findings. IMPRESSION: 1. No acute findings. Signer Name: Suleiman Best MD Signed: 06/06/2021 4:20 PM Workstation Name: [employer]
[2021-06-06] MEDS ORDERED: DOCUSATE SODIUM 100 MG CAP PO PRN (20:57)
[2021-06-06] MEDS ORDERED: ONDANSETRON 4 MG/2 ML INJ IV PRN (20:58)
[2021-06-06] MEDS ORDERED: ACETAMINOPHEN 325 MG TAB PO PRN (20:58)
[2021-06-06] MEDS ORDERED: METOCLOPRAMIDE 10 MG/2 ML INJ IV PRN (20:58)
[2021-06-06] MEDS ORDERED: SODIUM CHLORIDE 0.9% 1000 ML 1,000 ML IV SCH (21:00)
--- NOTE | 2021-06-06 21:01 | History and Physical Report ---
History of Present Illness Date of examination: 06/06/21 Date of admission: 06/06/21 16:00 Chief complaint: Altered mental status for 1 day History of present illness: 60-year-old female with chronic left-sided hemiplegia with Duncan in place sent in for altered sensorium for 1 day. Patient has been more weak than usual. No fever or chills. Patient is lethargic. In the emergency room patient was found to have severe urinary tract infection. 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 Patient responds to questions after painful stimuli. - Past Medical History Previous Medical History?: Yes --Diabetes: Yes --Arthritis: Yes --Psychiatric Treatment: Yes (ALCOHOL ABUSE) --Additional medical history: HIGH CHOLESTEROL,SYNCOPE,ELEVATED LIVER ENZYMES- R/T ALCOHOL ABUSE - Surgical History --Past Surgical History?: Yes --Additional Surgical History: Cyst removal from behind ear - Social History --Smoking Status: Unknown if ever smoked Review of Systems ROS: Constitutional no weight loss or weight gain no fever or chills HEENT no sore throat no post nasal drip no diplopia Neck no neck stiffness no lymph gland enlargement Chest and lungs no shortness of breath cough or wheezing CVS no chest pain no diaphoresis no palpitations GI no nausea no vomiting no diarrhea Genitourinary system Duncan in place Musculoskeletal system no muscle pains no joint pains PSYCHIATRIC NP altered sensorium, left hemiplegia Skin no rash no itching Psychiatric no depression no homicidal or suicidal tendencies Hematologic no lymphedema or bruising Endocrine no polydipsia no polyuria no cold intolerance no heat intolerance Medications and Allergies Allergies Allergy/AdvReac Type Severity Reaction Status Date / Time No Known Allergies Allergy Verified 05/08/21 08:40 Home Medications Medication Instructions Recorded Confirmed Last Taken Type ALPRAZolam [Xanax TAB] 0.5 mg PO BID PRN 05/08/21 06/07/21 06/05/21 History Brimonidine Tartrate/Timolol 1 drop OU BID 05/08/21 06/07/21 06/06/21 History [Combigan 0.2%-0.5% Eye Drops] Empagliflozin [Jardiance] 10 mg PO QDAY 05/08/21 06/07/21 06/05/21 History Moxifloxacin 0.5% 1 drops OD QID 05/08/21 06/07/21 06/05/21 History Docusate Sodium [Colace CAP] 100 mg PO BID PRN capsule 05/15/21 06/07/21 06/05/21 Rx Gabapentin 300 mg PO BID capsule 05/15/21 06/07/21 06/05/21 Rx Lispro Insulin [HumaLOG] 0 unit SUB-Q ACHS units 05/15/21 06/07/21 06/05/21 Rx Pantoprazole [Protonix TAB] 40 mg PO DAILY tablet 05/15/21 06/07/21 06/05/21 Rx Potassium Chloride [K-Dur] 20 meq PO QDAY tablet 05/15/21 06/07/21 06/05/21 Rx Exam - Constitutional Vitals: Temp Pulse Resp BP Pulse Ox 98.2 F 75 12 91/35 100 06/06/21 17:53 06/06/21 16:01 06/06/21 17:30 06/06/21 17:30 06/06/21 17:34 General appearance: Present: no acute distress, well-nourished - EENT Eyes: Present: PERRL ENT: hearing intact - Neck Neck: Present: supple, normal ROM - Respiratory Respiratory effort: normal Respiratory: bilateral: CTA - Cardiovascular Heart rate: 78 Rhythm: regular Heart Sounds: Present: S1 & S2. Absent: rub, click - Extremities Extremities: pulses symmetrical, No edema, abnormal (Left-sided weakness present) Extremity abnormal: other (Left-sided weakness present) Peripheral Pulses: within normal limits - Abdominal General gastrointestinal: Present: soft, non-tender, non-distended, normal bowel sounds Female genitourinary: Present: normal - Rectal Rectal Exam: deferred - Integumentary Integumentary: Present: clear, warm, dry - Musculoskeletal Musculoskeletal: left sided weakness, other (Lethargic) - Psychiatric Psychiatric: other (Lethargic) - Neurologic Neurologic: CNII-XII intact, focal deficits (Left-sided hemiplegia), moves all extremities, other (Lethargic lethargic and altered sensorium) - Allied Health Allied health notes reviewed: nursing, case management Results - Labs CBC & Chem 7: 06/06/21 14:33 06/06/21 14:33 Labs: Laboratory Last Values WBC 11.1 K/mm3 (4.5-11.0) H 06/06/21 14:33 RBC 2.97 M/mm3 (3.65-5.03) L 06/06/21 14:33 Hgb 9.0 gm/dl (10.1-14.3) L 06/06/21 14:33 Hct 27.5 % (30.3-42.9) L 06/06/21 14:33 MCV 92 fl (79-97) 06/06/21 14:33 MCH 30 pg (28-32) 06/06/21 14:33 MCHC 33 % (30-34) 06/06/21 14:33 RDW 15.7 % (13.2-15.2) H 06/06/21 14:33 Plt Count 381 K/mm3 (140-440) 06/06/21 14:33 Lymph % (Auto) 20.1 % (13.4-35.0) 06/06/21 14:33 [place] % (Auto) 12.0 % (0.0-7.3) H 06/06/21 14:33 Eos % (Auto) 0.7 % (0.0-4.3) 06/06/21 14:33 Baso % (Auto) 0.9 % (0.0-1.8) 06/06/21 14:33 Lymph # (Auto) 2.2 K/mm3 (1.2-5.4) 06/06/21 14:33 [place] # (Auto) 1.3 K/mm3 (0.0-0.8) H 06/06/21 14:33 Eos # (Auto) 0.1 K/mm3 (0.0-0.4) 06/06/21 14:33 Baso # (Auto) 0.1 K/mm3 (0.0-0.1) 06/06/21 14:33 Seg Neutrophils % 66.3 % (40.0-70.0) 06/06/21 14:33 Seg Neutrophils # 7.4 K/mm3 (1.8-7.7) 06/06/21 14:33 Sodium 135 mmol/L (137-145) L 06/06/21 14:33 Potassium 3.9 mmol/L (3.6-5.0) 06/06/21 14:33 Chloride 102.0 mmol/L (98-107) 06/06/21 14:33 Carbon Dioxide 22 mmol/L (22-30) 06/06/21 14:33 Anion Gap 15 mmol/L 06/06/21 14:33 BUN 21 mg/dL (7-17) H 06/06/21 14:33 Creatinine 0.5 mg/dL (0.6-1.2) L 06/06/21 14:33 Estimated GFR > 60 ml/min 06/06/21 14:33 BUN/Creatinine Ratio 42 % 06/06/21 14:33 Glucose 217 mg/dL (65-100) H 06/06/21 14:33 POC Glucose 191 mg/dL (70-105) H 06/06/21 15:00 Lactic Acid 1.80 mmol/L (0.7-2.0) 06/06/21 14:33 Calcium 9.1 mg/dL (8.4-10.2) 06/06/21 14:33 Total Bilirubin 0.30 mg/dL (0.1-1.2) 06/06/21 14:33 AST 8 units/L (5-40) 06/06/21 14:33 ALT 8 units/L (7-56) 06/06/21 14:33 Alkaline Phosphatase 109 units/L (35-129) 06/06/21 14:33 Total Protein 7.9 g/dL (6.3-8.2) 06/06/21 14:33 Albumin 2.1 g/dL (3.9-5) L 06/06/21 14:33 Albumin/Globulin Ratio 0.4 % 06/06/21 14:33 Urine Color Yellow (Yellow) 06/06/21 Unknown Urine Turbidity Cloudy (Clear) 06/06/21 Unknown Urine pH 5.0 (5.0-7.0) 06/06/21 Unknown Ur Specific [place] 1.015 (1.003-1.030) 06/06/21 Unknown Urine Protein <15 mg/dl mg/dL (Negative) 06/06/21 Unknown Urine Glucose (UA) >=500 mg/dL (Negative) 06/06/21 Unknown Urine Ketones Neg mg/dL (Negative) 06/06/21 Unknown Urine Blood Neg (Negative) 06/06/21 Unknown Urine Nitrite Pos (Negative) 06/06/21 Unknown Urine Bilirubin Neg (Negative) 06/06/21 Unknown Urine Urobilinogen < 2.0 mg/dL (<2.0) 06/06/21 Unknown Ur Leukocyte Esterase Lg (Negative) 06/06/21 Unknown Urine WBC (Auto) > 182.0 /HPF (0.0-6.0) H 06/06/21 Unknown Urine RBC (Auto) 179.0 /HPF (0.0-6.0) 06/06/21 Unknown U Epithel Cells (Auto) 4.0 /HPF (0-13.0) 06/06/21 Unknown Urine Bacteria (Auto) 1+ /HPF (Negative) 06/06/21 Unknown Urine WBC Clumps 2+ /HPF 06/06/21 Unknown Hyaline Casts 56 /LPF 06/06/21 Unknown Ur Yeast w Hyphae Few /HPF 06/06/21 Unknown Urine Yeast (Budding) 3+ /HPF 06/06/21 Unknown - Imaging and Cardiology EKG: report reviewed (Sinus rhythm no acute ST-T wave changes) Chest x-ray: report reviewed Imaging and Cardiology: Chest x-ray No acute findings Assessment and Plan Advance Directives: Yes (Full code) VTE prophylaxis?: Chemical Plan of care discussed with patient/family: Yes - Patient Problems (1) Acute encephalopathy Current Visit: Yes Status: Acute Plan to address problem: Secondary to SIRS and urinary tract infection (2) SIRS (systemic inflammatory response syndrome) Current Visit: Yes Status: Acute Plan to address problem: Leukocytosis present Patient is altered sensorium Clinical picture consistent with Sirs (3) UTI (urinary tract infection) Current Visit: Yes Status: Acute Qualifiers: Urinary tract infection type: catheter-associated UTI Indwelling urinary catheter type: indwelling urethral catheter Encounter type: initial encounter Qualified Code(s): T83.511A - Infection and inflammatory reaction due to indwelling urethral catheter, initial encounter; N39.0 - Urinary tract infec tion, site not specified Plan to address problem: Patient initiated on Rocephin pending urine cultures Pseudomonas is a possibility because of the end dwelling catheter To be switched to cefepime as necessary (4) IDDM (insulin dependent diabetes mellitus) Current Visit: Yes Status: Chronic Plan to address problem: Coverage for now with high-dose sliding scale coverage Check A1c (5) Glaucoma Current Visit: Yes Status: Chronic Qualifiers: Glaucoma type: unspecified Plan to address problem: Continue current eyedrops (6) Hyponatremia Current Visit: Yes Status: Acute Plan to address problem: Mild IV normal saline (7) Anemia Current Visit: Yes Status: Chronic Qualifiers: Anemia type: unspecified type Qualified Code(s): D64.9 - Anemia, unspecified Plan to address problem: Anemia work-up (8) Malnutrition Current Visit: Yes Status: Chronic Qualifiers: Protein-calorie malnutrition severity: moderate Plan to address problem: Dietary supplements and dietitian consult (9) DVT prophylaxis Current Visit: Yes Status: Acute Plan to address problem: On anticoagulation GI prophylaxis
[2021-06-06] MEDS ORDERED: FAMOTIDINE 20 MG/2 ML INJ IV SCH (22:00)
[2021-06-06] MEDS: COMBIGAN 0.2-0.5% OPHTH SOLN OU SCH (22:49)
[2021-06-06] MEDS: HEPARIN 5,000 UNIT/1 ML VIAL SUB-Q SCH (22:50)
[2021-06-06] MEDS: oxyCODONE /ACETAMINOPHEN 5-325MG TAB PO PRN (22:51)
[2021-06-07] MEDS: HYDROmorphone 1 MG/1 ML INJ IV PRN ×2 (03:24→16:53)
[2021-06-07 07:36] LABS: Basophils % (Auto) 0.3 % (0.0-1.8); Eosinophils # (Auto) 0.1 K/mm3 (0.0-0.4); Eosinophils % (Auto) 0.8 % (0.0-4.3); Hematocrit 27.4 % (30.3-42.9); Hemoglobin 8.5 gm/dl (10.1-14.3); Lymphocytes # (Auto) 1.4 K/mm3 (1.2-5.4); Lymphocytes % (Auto) 15.5 % (13.4-35.0); Mean Corpuscular HGB Conc 31 % (30-34); Mean Corpuscular Volume 92 fl (79-97); Monocytes # (Auto) 0.7 K/mm3 (0.0-0.8); Platelet Count 346 K/mm3 (140-440); Red Blood Count 2.98 M/mm3 (3.65-5.03); Red Cell Distribution Width 15.5 % (13.2-15.2)
[2021-06-07 07:58] LABS: Alanine Aminotransferase 8 units/L (7-56); Albumin 2.2 g/dL (3.9-5); Blood Urea Nitrogen 18 mg/dL (7-17); Calcium 8.9 mg/dL (8.4-10.2); Hemolysis Index 2
[2021-06-07 08:01] LABS: BUN/Creatinine Ratio 36
--- NOTE | 2021-06-07 09:03 | Electrocardiograph Report ---
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
[2021-06-07] MEDS: COMBIGAN 0.2-0.5% OPHTH SOLN OU SCH ×2 (09:21→22:31)
[2021-06-07] MEDS: cefTRIAXone/NS 2 GM/100 ML 2 GM/100 ML BAG IV SCH (09:22)
[2021-06-07] MEDS: PANTOPRAZOLE 40 MG TAB PO SCH (09:53)
[2021-06-07] MEDS: HEPARIN 5,000 UNIT/1 ML VIAL SUB-Q SCH ×2 (09:53→22:30)
[2021-06-07] MEDS: POTASSIUM CHLORIDE ER 20 MEQ TAB PO SCH (09:53)
[2021-06-07] MEDS: EMPAGLIFLOZIN (NF) 10 MG TABLET PO SCH (09:53)
[2021-06-07] MEDS ORDERED: NON-FORMULARY EACH (Empagliflozin [Jardiance] 10 MG Tablet) PO SCH (10:00)
[2021-06-07] MEDS: oxyCODONE /ACETAMINOPHEN 5-325MG TAB PO PRN ×3 (10:02→22:29)
--- NOTE | 2021-06-07 10:17 | Progress Note ---
Assessment and Plan Assessment and plan: 60-year-old female with chronic left-sided hemiplegia with Duncan in place sent in for altered sensorium for 1 day. Patient has been more weak than usual. No fever or chills. Patient is lethargic. In the emergency room patient was found to have severe urinary tract infection. 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 Patient responds to questions after painful stimuli. Patient was recently in the hospital for the same was treated for UTI wound management. Is unclear to me as to how ambulatory she yes. Review of the ambulance documentation appears that she has unfortunately been getting weak prompting the ambulance call for her to come to the hospital for further evaluation. 06/07: Spoke to family, it appears the patient has some social issues, she was discharged from an outpatient facility and also the [facility] stopped coming due to the fact that she is home alone and does not have 24 hrs care. Also another company concerned about her smoking and stopped coming, she has not had a wound team come take care of her and as a result the family sent her back to the hospital as the wound was getting infected with drainage. Will continue abx, as patient still exhibiting signs of sepsis and possible infected wound will obtain case management to see if we can get wound Her sister is also trying to make alternative leaving arrangement (1) Acute metabolic encephalopathy Current Visit: Yes Status: Acute Plan to address problem: Secondary to SIRS and urinary tract infection (2) sepsis secondary to recurrent cystitis and also chronic sacral pressure wound Current Visit: Yes Status: Acute Plan to address problem: Leukocytosis present Patient is altered sensorium Clinical picture consistent with Sirs (3) UTI (urinary tract infection) Current Visit: Yes Status: Acute Qualifiers: Urinary tract infection type: catheter-associated UTI Indwelling urinary catheter type: indwelling urethral catheter Encounter type: initial encounter Qualified Code(s): T83.511A - Infection and inflammatory reaction due to indwelling urethral catheter, initial encounter; N39.0 - Urinary tract infection, site not specified Plan to address problem: Patient initiated on Rocephin pending urine cultures Pseudomonas is a possibility because of the end dwelling catheter To be switched to cefepime as necessary (4) IDDM (insulin dependent diabetes mellitus) Current Visit: Yes Status: Chronic Plan to address problem: Coverage for now with high-dose sliding scale coverage Check A1c (5) Glaucoma Current Visit: Yes Status: Chronic Qualifiers: Glaucoma type: unspecified Plan to address problem: Continue current eyedrops (6) Hyponatremia Current Visit: Yes Status: Acute Plan to address problem: Mild IV normal saline (7) Anemia Current Visit: Yes Status: Chronic Qualifiers: Anemia type: unspecified type Qualified Code(s): D64.9 - Anemia, unspecified Plan to address problem: Anemia work-up (8) Malnutrition Current Visit: Yes Status: Chronic Qualifiers: Protein-calorie malnutrition severity: moderate Plan to address problem: Dietary supplements and dietitian consult (9) Stage III sacral decubitus ulcer without osteomyelitis. (10) DVT prophylaxis Current Visit: Yes Status: Acute Plan to address problem: On anticoagulation GI prophylaxis History Interval history: Patient seen and examined, still lethargic, no fever. Hospitalist Physical - Physical exam Narrative exam: General appearance: Present: no acute distress, well-nourished - EENT Eyes: Present: PERRL ENT: hearing intact - Neck Neck: Present: supple, normal ROM - Respiratory Respiratory effort: normal Respiratory: bilateral: CTA - Cardiovascular Heart rate: 78 Rhythm: regular Heart Sounds: Present: S1 & S2. Absent: rub, click - Extremities Extremities: pulses symmetrical, No edema, abnormal (Left-sided weakness present) Extremity abnormal: other (Left-sided weakness present) Peripheral Pulses: within normal limits - Abdominal General gastrointestinal: Present: soft, non-tender, non-distended, normal bowel sounds Female genitourinary: Present: normal - Rectal Rectal Exam: deferred - Integumentary Integumentary: Present: clear, warm, dry - Musculoskeletal Musculoskeletal: left sided weakness, other (Lethargic) - Psychiatric Psychiatric: other (Lethargic) - Neurologic Neurologic: CNII-XII intact, focal deficits (Left-sided hemiplegia), moves all extremities, other (Lethargic lethargic and altered sensorium) - Allied Health Allied health notes reviewed: nursing, case management - Constitutional Vitals: Temp Pulse Resp BP Pulse Ox 98.5 F 80 15 109/53 94 06/07/21 07:54 06/07/21 07:54 06/07/21 07:54 06/07/21 07:54 06/07/21 07:54 General appearance: Present: no acute distress, well-nourished Results - Labs CBC & Chem 7: 11/19/21 07:28 06/07/21 07:28 Labs: Laboratory Last Values WBC 9.0 K/mm3 (4.5-11.0) 06/07/21 07:28 RBC 2.98 M/mm3 (3.65-5.03) L 06/07/21 07:28 Hgb 8.5 gm/dl (10.1-14.3) L 06/07/21 07:28 Hct 27.4 % (30.3-42.9) L 06/07/21 07:28 MCV 92 fl (79-97) 06/07/21 07:28 MCH 29 pg (28-32) 06/07/21 07:28 MCHC 31 % (30-34) 06/07/21 07:28 RDW 15.5 % (13.2-15.2) H 06/07/21 07:28 Plt Count 346 K/mm3 (140-440) 06/07/21 07:28 Lymph % (Auto) 15.5 % (13.4-35.0) 06/07/21 07:28 [place] % (Auto) 8.0 % (0.0-7.3) H 06/07/21 07:28 Eos % (Auto) 0.8 % (0.0-4.3) 06/07/21 07:28 Baso % (Auto) 0.3 % (0.0-1.8) 06/07/21 07:28 Lymph # (Auto) 1.4 K/mm3 (1.2-5.4) 06/07/21 07:28 [place] # (Auto) 0.7 K/mm3 (0.0-0.8) 06/07/21 07:28 Eos # (Auto) 0.1 K/mm3 (0.0-0.4) 06/07/21 07:28 Baso # (Auto) 0.0 K/mm3 (0.0-0.1) 06/07/21 07:28 Seg Neutrophils % 75.4 % (40.0-70.0) H 06/07/21 07:28 Seg Neutrophils # 6.8 K/mm3 (1.8-7.7) 06/07/21 07:28 Sodium 137 mmol/L (137-145) 06/07/21 07:28 Potassium 3.7 mmol/L (3.6-5.0) 06/07/21 07:28 Chloride 105.1 mmol/L (98-107) 06/07/21 07:28 Carbon Dioxide 22 mmol/L (22-30) 06/07/21 07:28 Anion Gap 14 mmol/L 06/07/21 07:28 BUN 18 mg/dL (7-17) H 06/07/21 07:28 Creatinine 0.5 mg/dL (0.6-1.2) L 06/07/21 07:28 Estimated GFR > 60 ml/min 06/07/21 07:28 BUN/Creatinine Ratio 36 % 06/07/21 07:28 Glucose 288 mg/dL (65-100) H 06/07/21 07:28 POC Glucose 191 mg/dL (70-105) H 06/06/21 15:00 Lactic Acid 1.80 mmol/L (0.7-2.0) 06/06/21 14:33 Calcium 8.9 mg/dL (8.4-10.2) 06/07/21 07:28 Total Bilirubin 0.20 mg/dL (0.1-1.2) 06/07/21 07:28 AST 6 units/L (5-40) 06/07/21 07:28 ALT 8 units/L (7-56) 06/07/21 07:28 Alkaline Phosphatase 101 units/L (35-129) 06/07/21 07:28 Total Protein 7.0 g/dL (6.3-8.2) 06/07/21 07:28 Albumin 2.2 g/dL (3.9-5) L 06/07/21 07:28 Albumin/Globulin Ratio 0.5 % 06/07/21 07:28 Urine Color Yellow (Yellow) 06/06/21 Unknown Urine Turbidity Cloudy (Clear) 06/06/21 Unknown Urine pH 5.0 (5.0-7.0) 06/06/21 Unknown Ur Specific [place] 1.015 (1.003-1.030) 06/06/21 Unknown Urine Protein <15 mg/dl mg/dL (Negative) 06/06/21 Unknown Urine Glucose (UA) >=500 mg/dL (Negative) 06/06/21 Unknown Urine Ketones Neg mg/dL (Negative) 06/06/21 Unknown Urine Blood Neg (Negative) 06/06/21 Unknown Urine Nitrite Pos (Negative) 06/06/21 Unknown Urine Bilirubin Neg (Negative) 06/06/21 Unknown Urine Urobilinogen < 2.0 mg/dL (<2.0) 06/06/21 Unknown Ur Leukocyte Esterase Lg (Negative) 06/06/21 Unknown Urine WBC (Auto) > 182.0 /HPF (0.0-6.0) H 06/06/21 Unknown Urine RBC (Auto) 179.0 /HPF (0.0-6.0) 06/06/21 Unknown U Epithel Cells (Auto) 4.0 /HPF (0-13.0) 06/06/21 Unknown Urine Bacteria (Auto) 1+ /HPF (Negative) 06/06/21 Unknown Urine WBC Clumps 2+ /HPF 06/06/21 Unknown Hyaline Casts 56 /LPF 06/06/21 Unknown Ur Yeast w Hyphae Few /HPF 06/06/21 Unknown Urine Yeast (Budding) 3+ /HPF 06/06/21 Unknown Duncan/IV: Voiding Method Indwelling Catheter Active Medications - Current Medications Current Medications: Generic Name Dose Route Start Last Admin Trade Name Freq PRN Reason Stop Dose Admin Acetaminophen 650 mg 06/06/21 20:58 Acetaminophen 325 Mg Tab PO Q4H PRN Pain MILD(1-3)/Fever >100.5/LUCERO Brimonidine/Timolol 1 drops 06/06/21 22:00 06/07/21 09:21 Combigan 0.2-0.5% Ophth Soln OU 1 drops BID MALU Administration Docusate Sodium 100 mg 06/06/21 20:57 06/07/21 03:26 Docusate Sodium 100 Mg Cap PO 100 mg BID PRN Administration Constipation Heparin Sodium (Porcine) 5,000 unit 06/06/21 22:00 06/07/21 09:53 Heparin 5,000 Unit/1 Ml Vial SUB-Q 5,000 unit Q12HR MALU Administration Hydromorphone HCl 0.5 mg 06/06/21 20:58 06/07/21 03:24 Hydromorphone 1 Mg/1 Ml Inj IV 0.5 mg Q3H PRN Administration Pain , Severe (7-10) Sodium Chloride 1,000 mls @ 75 mls/hr 06/06/21 21:00 06/07/21 09:22 Nacl 0.9% 1000 Ml IV 75 mls/hr DIRECT MALU Administration Ceftriaxone Sodium 2 gm in 100 mls @ 200 mls/hr 06/07/21 10:00 06/07/21 09:22 Rocephin/Ns 2 Gm/100 Ml IV 06/10/21 09:59 200 mls/hr Q24HR MALU Administration Protocol Metoclopramide HCl 10 mg 06/06/21 20:58 Metoclopramide 10 Mg/2 Ml Inj IV Q6H PRN Nausea And Vomiting Ondansetron HCl 4 mg 06/06/21 20:58 Ondansetron 4 Mg/2 Ml Inj IV Q3H PRN Nausea And Vomiting Oxycodone/Acetaminophen 1 tab 06/06/21 20:58 06/07/21 10:02 Oxycodone /Acetaminophen 5-325mg Tab PO 1 tab Q6H PRN Administration Pain, Moderate (4-6) Pantoprazole Sodium 40 mg 06/07/21 10:00 06/07/21 09:53 Pantoprazole 40 Mg Tab PO 40 mg DAILY MALU Administration Potassium Chloride 20 meq 06/07/21 10:00 06/07/21 09:53 Potassium Chloride Er 20 Meq Tab PO 20 meq QDAY MALU Administration Sodium Chloride 10 ml 06/06/21 22:00 06/06/21 22:51 Sodium Chloride 0.9% 10 Ml Flush Syringe IV 10 ml BID MALU Administration Sodium Chloride 10 ml 06/06/21 20:58 Sodium Chloride 0.9% 10 Ml Flush Syringe IV PRN PRN LINE FLUSH
[2021-06-08] MEDS: EMPAGLIFLOZIN (NF) 10 MG TABLET PO SCH (09:19)
[2021-06-08] MEDS: oxyCODONE /ACETAMINOPHEN 5-325MG TAB PO PRN (10:13)
[2021-06-08] MEDS: POTASSIUM CHLORIDE ER 20 MEQ TAB PO SCH (10:13)
[2021-06-08] MEDS: PANTOPRAZOLE 40 MG TAB PO SCH (10:13)
[2021-06-08] MEDS: HEPARIN 5,000 UNIT/1 ML VIAL SUB-Q SCH (10:13)
[2021-06-08] MEDS: cefTRIAXone/NS 2 GM/100 ML 2 GM/100 ML BAG IV SCH (10:14)
[2021-06-08] MEDS: COMBIGAN 0.2-0.5% OPHTH SOLN OU SCH (10:14)
--- NOTE | 2021-06-08 10:15 | Discharge Summary ---
Providers - Providers Date of Admission: 06/06/21 16:00 Date of discharge: 06/08/21 Attending physician: JURGEN OCASIO 06/07/21 06:49 Consult to Dietitian/Nutrition [CONS] Routine Physician Instructions: Reason For Exam: Reason for Consult: Pt needs oral supplement 06/07/21 09:01 Occupational Therapy Evaluate and Treat [CONS] Routine Comment: Reason For Exam: debility Physical Therapy Evaluation and Treat [CONS] Routine Comment: Reason For Exam: debility 06/07/21 10:12 Consult to Wound/ET Nurse [CONS] Routine Reason For Exam: wound eval Primary care physician: UTILITY HAND Hospitalization Condition: Stable Hospital course: 60-year-old female with chronic left-sided hemiplegia with Duncan in place sent in for altered sensorium for 1 day. Patient has been more weak than usual. No fever or chills. Patient is lethargic. In the emergency room patient was found to have severe urinary tract infection. 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 Patient responds to questions after painful stimuli. Patient was recently in the hospital for the same was treated for UTI wound management. Is unclear to me as to how ambulatory she yes. Review of the ambulance documentation appears that she has unfortunately been getting weak prompting the ambulance call for her to come to the hospital for further evaluation. 06/07: Spoke to family, it appears the patient has some social issues, she was discharged from an outpatient facility and also the [employer] stopped coming due to the fact that she is home alone and does not have 24 hrs care. Also another company concerned about her smoking and stopped coming, she has not had a wound team come take care of her and as a result the family sent her back to the hospital as the wound was getting infected with drainage. Will continue abx, as patient still exhibiting signs of sepsis and possible i nfected wound will obtain case management to see if we can get wound Her sister is also trying to make alternative leaving arrangement 06/08 patient is alert and oriented x3. She offers no specific complaints. She is medically stable for discharge. I called patient's sister over the phone, no response, left a message. Also discussed with porter sample case and RN. Home wound care nurse and PT and OT will be arranged through [facility] (1) Acute metabolic encephalopathy Plan to address problem: Improved Secondary to urinary tract infection (2) sepsis secondary to recurrent cystitis and also chronic sacral pressure wound Plan to address problem: No blood cultures or urine cultures were obtained Clinically stable for discharge We will discharge on oral antibiotic (3) UTI (urinary tract infection) Plan to address problem: We will discharge on oral antibiotic as no urine cultures were obtained She is afebrile and leukocytosis improved (4) IDDM (insulin dependent diabetes mellitus) Continue home medications (5) Glaucoma Continue current eyedrops (6) Hyponatremia Mild Improved (7) Anemia Normocytic anemia Outpatient follow-up by PCP for anemia work-up H&H stable and no overt bleeding (8) Malnutrition OTC Ensure (9) Stage III sacral decubitus ulcer without osteomyelitis. Discussed with porter sample case and arrangements are being made for home wound care nurse and home PT and OT Wound does not appear infected She needs outpatient wound care follow-up Disposition: 01 HOME / SELF CARE / HOMELESS Final Discharge Diagnosis (Prints w/discharge instructions): Acute encephalopathy likely secondary to UTI Time spent for discharge: 36 min Core Measure Documentation - Palliative Care Palliative Care/ Comfort Measures: Not Applicable - Core Measures Any of the following diagnoses?: none Exam - Constitutional Vitals: Temp Pulse Resp BP Pulse Ox 97.9 F 69 18 114/55 99 06/08/21 06:03 06/08/21 06:03 06/08/21 06:03 06/08/21 06:03 06/08/21 06:03 General appearance: Present: no acute distress - EENT Eyes: Present: PERRL (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 Absent: masses or JVD - Respiratory Respiratory effort: normal Respiratory: bilateral: CTA - Cardiovascular Rhythm: regular Heart Sounds: Present: S1 & S2 - Extremities Extremities: No edema - Abdominal General gastrointestinal: Present: soft, non-tender Female genitourinary: Present: deferred - Rectal Rectal Exam: deferred - Integumentary Integumentary: Present: rash (Stage II-III ulceration on the buttock) - Musculoskeletal Musculoskeletal: left sided weakness - Psychiatric Psychiatric: appropriate mood/affect - Neurologic Neurologic: CNII-XII intact Plan Activity: up only with assistance, fall precautions Weight Bearing Status: Weight Bear as Tolerated Diet: regular, low fat, low cholesterol, low salt, diabetic Wound: keep clean and dry, per wound nurse instructions, other (Outpatient follow-up at wound care center) Durable Medical Equipment Needed Upon Discharge: other (Patient states she has DME at home) Prescriptions: Cefuroxime Axetil [Ceftin] 500 mg PO Q12H #14 ml Nicotine [Habitrol] 21 mg TD DAILY #30 patch oxyCODONE /ACETAMINOPHEN [Percocet 5/325 mg] 1 tab PO Q6H PRN #10 tablet PRN Reason: Pain, Moderate (4-6)
[2021-06-08 13:22] VITALS: BP 119/61
== END 2021-06-08 15:47 | disposition home health service (06) | DRG 871 ==
LOC: ED 13:38 → 3A 16:00
PROVIDERS: ADMIT Internal Medicine; ATTEND Internal Medicine
DX: A41.9 Sepsis, unspecified organism (principal); L89.153 Pressure ulcer of sacral region, stage 3; G93.41 Metabolic encephalopathy; T83.511A Infection and inflammatory reaction due to indwelling urethral catheter, initial encounter; E87.1 Hypo-osmolality and hyponatremia; I69.354 Hemiplegia and hemiparesis following cerebral infarction affecting left non-dominant side; E44.0 Moderate protein-calorie malnutrition; Z68.1 Body mass index [BMI] 19.9 or less, adult; E11.9 Type 2 diabetes mellitus without complications; Y84.6 Urinary catheterization as the cause of abnormal reaction of the patient, or of later complication, without mention of misadventure at the time of the procedure; Y92.89 Other specified places as the place of occurrence of the external cause; M19.90 Unspecified osteoarthritis, unspecified site; E78.00 Pure hypercholesterolemia, unspecified; Z79.4 Long term (current) use of insulin; H40.9 Unspecified glaucoma; D64.9 Anemia, unspecified; N30.90 Cystitis, unspecified without hematuria; N86 Erosion and ectropion of cervix uteri
CPT/HCPCS: 36415; 71045; 80053; 81001; 82140; 82962; 85025; 93005; G0378; J3490; Q0162; J0696; J1170; J1644; J1885; J7030